=== PATIENT | female | born 1950 | race Caucasian/White ===

== ENCOUNTER 2021-05-01 19:53 | Inpatient (IN) | payer MEDICARE, OTHER ==
[~2021-05-01] VITALS: Ht 165.1 cm; Wt 94.0 kg
--- NOTE | 2021-05-01 19:55 | NUR ---
The patient, JOSE CRUZ ARCHIBALD, 70 y/o, F admitted by PATRICK WINSTON III, DO, was given written information regarding hospital policies, unit procedures and contact persons. Valuables were checked and documented. pt has 280.00 dollars with her, refused to have security to lock up. dr winston notified of pt arrival new orders received see chart. call light in place will cont to monitor pt status and safety. pmrn
[2021-05-01 20:00] VITALS: BP 144/59
[2021-05-01] MEDS ORDERED: ALBUTEROL SULFATE 2.5 MG/3 ML NEBU. NEB PRN (21:15)
[2021-05-01] MEDS ORDERED: guaiFENesin DM 200MG/20MG 10 ML SYRUP PO PRN (21:15)
[2021-05-01] MEDS ORDERED: DEXTROSE 50% 25 GM / 50ML DISP.SYRIN. IV PRN (21:15)
[2021-05-01] MEDS ORDERED: ACETAMINOPHEN 325 MG TABLET. PO PRN (21:15)
[2021-05-01] MEDS: cefTRIAXone IV Push 1 GM VIAL. IVP SCH (22:37)
[2021-05-01 23:00] VITALS: BP 148/59
[2021-05-01] MEDS ORDERED: MAGNESIUM SULFATE 2GM 50 ML IV ONE (23:00)
[2021-05-02] MEDS ORDERED: HEPARIN for IV BOLUS 10,000 UNIT/10 ML VIAL. IV PRN (00:15)
[2021-05-02] MEDS: HEPARIN for IV BOLUS 10,000 UNIT/10 ML VIAL. IV PRN ×2 (00:42→10:48)
[2021-05-02] MEDS: HEPARIN 25,000UTS/250ML PREMIX 250 ML IV PRN ×2 (00:49→23:04)
[2021-05-02] MEDS: ANTI-COAG MONITOR BY PHARMACY. MC PRN ×2 (02:27→08:06)
[2021-05-02 03:00] VITALS: BP 140/62
[2021-05-02 07:00] VITALS: BP 185/79
[2021-05-02] MEDS: ALBUTEROL SULFATE 2.5 MG/3 ML NEBU. NEB SCH ×4 (07:32→20:38)
[2021-05-02 07:52] LABS: BASO # 0.1 x10^3/uL (0.0-0.2); BASO % 1 % (0-3); EOS # 0.1 x10^3/uL (0.0-0.7); EOS % 1 % (0-3); HEMATOCRIT 29.7 % (36.0-47.0); HEMOGLOBIN 9.6 g/dL (12.0-15.5); LYMPH # 1.8 x10^3/uL (1.0-4.8); LYMPH % 22 % (24-48); MEAN CORPUSCULAR HEMOGLOBIN 29 pg (25-35); MEAN CORPUSCULAR HGB CONC 32 g/dL (31-37); MEAN CORPUSCULAR VOLUME 88 fL (79-100); MONO # 0.6 x10^3/uL (0.0-1.1); MONO % 7 % (0-9); NEUT # 5.5 x10^3/uL (1.8-7.7); NEUT % 69 % (31-73); PLATELET COUNT 338 x10^3/uL (140-400); RED BLOOD COUNT 3.38 x10^6/uL (3.50-5.40); RED CELL DISTRIBUTION WIDTH 16.6 % (11.5-14.5)
[2021-05-02] MEDS: INSULIN LISPRO 300 UNITS/3 ML VIAL. SQ SCH ×3 (08:00→17:22)
[2021-05-02 08:11] LABS: CALCIUM 8.4 mg/dL (8.5-10.1); CREATININE 0.6 mg/dL (0.6-1.0); GFR 99.4; POTASSIUM 4.1 mmol/L (3.5-5.1)
--- NOTE | 2021-05-02 08:34 | PDOC1 ---
History and Physical Date of Service: DOS: DATE: 05/02/21 TIME: 08:33 Chief Complaint: Chief Complain: Upper extremity swelling History of Present Illness: HPI: Patient is a 62-year-old female with past medical history of diabetes, hypertension, 55-year of smoking who comes in with bilateral upper extremity swelling and bilateral lower extremity shortness of breath for the last week. Apparently patient was seen in [place] 1 week ago for pneumonialike symptoms and she was treated with antibiotics. She was also told that they did scan her and they told her that she had a mass in her lung. She did not follow-up with this. Patient did have a Covid positivity in December and she was having shortness of breath at that time. She does denies have any history of CHF or kidney dis ease. Patient went to [facility] ER to be evaluated because of her upper extremity swelling. CT of the chest was significant for a right suprahilar mass extending into the mediastinum and supra vena cava occlusion with acute appearing thrombus. For this reason patient was sent over for further evaluation of possible thrombectomy with interventional radiology. Pulmonology and oncology are consulted Past Medical/Surgical History: PMH/PSH: Past medical history of diabetes mellitus and hypertension. Denies any surgical history Allergies: Allergies: Coded Allergies: Anesthetics - Amide Type - Select A (Verified Allergy, Severe, CARDIAC ARREST, 05/01/21) Anesthetics - Elsi Type- Parabens (Verified Allergy, Severe, CARDIAC ARREST, 05/01/21) codeine (Verified Allergy, Intermediate, 05/01/21) makes pt cry niacin (Verified Allergy, Intermediate, 05/01/21) skin turns red and hives Family History: Family History: Reviewed with no relevant findings Social History: Social History: 55 years of 1 pack/day smoking Current Medications: Current Medications Current Medications Acetaminophen (Tylenol) 650 mg PRN Q4HRS PRN PO TEMP OVER 100.4F OR MILD PAIN; Start 05/01/21 at 21:15 Magnesium Sulfate 50 ml @ 25 mls/hr 1X ONCE IV Last administered on 05/01/21at 22:37; Start 05/01/21 at 23:00; Stop 05/02/21 at 00:59; Status DC Ceftriaxone Sodium (Rocephin) 1 gm Q24H IVP Last administered on 05/01/21at 22:37; Start 05/01/21 at 23:00 Lisinopril (Prinivil) 10 mg DAILY PO ; Start 05/02/21 at 09:00 Albuterol Sulfate (Ventolin Neb Soln) 2.5 mg RTQID NEB Last administered on 05/02/21at 07:32; Start 05/02/21 at 08:00 Albuterol Sulfate (Ventolin Neb Soln) 2.5 mg PRN Q4HRS PRN NEB SHORTNESS OF BREATH Last administered on 05/01/21at 22:06; Start 05/01/21 at 21:15 Insulin Human Lispro (HumaLOG) 0-7 UNITS TIDWMEALS SQ ; Start 05/02/21 at 08:00 Dextrose (Dextrose 50%-Water Syringe) 12.5 gm PRN Q15MIN PRN IV SEE COMMENTS; Start 05/01/21 at 21:15 Guaifenesin (Robitussin Dm) 10 ml PRN Q6HRS PRN PO COUGH; Start 05/01/21 at 21:15 Heparin Sodium/ Dextrose 250 ml @ 14 mls/hr CONT PRN IV PER PROTOCOL Last administered on 05/02/21at 00:49; Start 05/02/21 at 00:15 Heparin Sodium (Porcine) (Heparin Sodium) 2,650 unit PRN Q6HRS PRN IV FOR UFH LEVEL LESS THAN 0.2 Last administered on 05/02/21at 00:42; Start 05/02/21 at 00:15 Heparin Sodium (Porcine) (Heparin Sodium) 1,300 unit PRN Q6HRS PRN IV FOR UFH LEVEL 0.2 - 0.29; Start 05/02/21 at 00:15 Info (Anti-Coagulation Monitoring By Pharmacy) 1 each PRN DAILY PRN MC PER PROTOCOL Last administered on 05/02/21at 08:06; Start 05/02/21 at 00:30 ROS: Review of Systems Review of System REVIEW OF SYSTEMS: GENERAL: Denies weakness SKIN: No bruising, hair changes or rashes. EYES: No blurred, double or loss of vision. NOSE AND THROAT: No history of nosebleeds, hoarseness or sore throat. HEART: No history of palpitations, chest pain or shortness of breath on exertion. LUNGS: Denies cough, hemoptysis, wheezing or shortness of breath. GASTROINTESTINAL: Denies changes in appetite, nausea, vomiting, diarrhea or constipation. GENITOURINARY: No history of frequency, urgency, hesitancy or nocturia. NEUROLOGIC: Denies history of numbness, tingling, or tremor. PSYCHIATRIC: No history of panic, anxiety or depression. ENDOCRINE: No history of heat or cold intolerance, polyuria or polydipsia. EXTREMITIES: Upper extremity swelling Physical Exam: Vital Signs: Vital Signs Date Time Temp Pulse Resp B/P (MAP) Pulse Ox O2 Delivery O2 Flow Rate FiO2 05/02/21 07:32 93 Room Air 05/02/21 03:00 98.4 85 17 140/62 (88) 98.4 05/01/21 22:08 2.0 Physcial Exam: General: Well developed, well nourished, no acute distress, well appearing HEENT: Pupils equally round and reactive to light, EOMI, no discharge, normal conjunctiva Neck: Supple, no nuchal rigidity, no JVD, trachea midline, no tenderness Cardiac: RRR, no murmurs, no gallops, no rubs Chest/Lungs: CTAB, no wheeze, no rhonchi, no crackles. Diminished lung sounds in the right upper region. Abdomen: soft, non-distended, no guarding, no peritoneal signs, non-tender Back: No tenderness Extremities: +1 upper extremity edema in the right greater than left extremities. No erythema or redness of the face. Neuro: Alert and oriented x 4, no focal deficits, normal speech Labs: Labs: Laboratory Tests Test 05/01/21 23:10 05/02/21 06:15 05/02/21 07:38 Heparin Anti-Xa Act, Unfractionated 0.15 IU/mL (0.30-0.70) 0.19 IU/mL (0.30-0.70) White Blood Count 8.0 x10^3/uL (4.0-11.0) Red Blood Count 3.38 x10^6/uL (3.50-5.40) Hemoglobin 9.6 g/dL (12.0-15.5) Hematocrit 29.7 % (36.0-47.0) Mean Corpuscular Volume 88 fL (79-100) Mean Corpuscular Hemoglobin 29 pg (25-35) Mean Corpuscular Hemoglobin Concent 32 g/dL (31-37) Red Cell Distribution Width 16.6 % (11.5-14.5) Platelet Count 338 x10^3/uL (140-400) Neutrophils (%) (Auto) 69 % (31-73) Lymphocytes (%) (Auto) 22 % (24-48) Monocytes (%) (Auto) 7 % (0-9) Eosinophils (%) (Auto) 1 % (0-3) Basophils (%) (Auto) 1 % (0-3) Neutrophils # (Auto) 5.5 x10^3/uL (1.8-7.7) Lymphocytes # (Auto) 1.8 x10^3/uL (1.0-4.8) Monocytes # (Auto) 0.6 x10^3/uL (0.0-1.1) Eosinophils # (Auto) 0.1 x10^3/uL (0.0-0.7) Basophils # (Auto) 0.1 x10^3/uL (0.0-0.2) Sodium Level 138 mmol/L (136-145) Potassium Level 4.1 mmol/L (3.5-5.1) Chloride Level 100 mmol/L (98-107) Carbon Dioxide Level 29 mmol/L (21-32) Anion Gap 9 (6-14) Blood Urea Nitrogen 11 mg/dL (7-20) Creatinine 0.6 mg/dL (0.6-1.0) Estimated GFR (Cockcroft-Gault) 99.4 Glucose Level 92 mg/dL (70-99) Calcium Level 8.4 mg/dL (8.5-10.1) Glucose (Fingerstick) 96 mg/dL (70-99) Laboratory Tests Test 05/01/21 23:10 05/02/21 06:15 05/02/21 07:38 Heparin Anti-Xa Act, Unfractionated 0.15 IU/mL (0.30-0.70) 0.19 IU/mL (0.30-0.70) White Blood Count 8.0 x10^3/uL (4.0-11.0) Red Blood Count 3.38 x10^6/uL (3.50-5.40) Hemoglobin 9.6 g/dL (12.0-15.5) Hematocrit 29.7 % (36.0-47.0) Mean Corpuscular Volume 88 fL (79-100) Mean Corpuscular Hemoglobin 29 pg (25-35) Mean Corpuscular Hemoglobin Concent 32 g/dL (31-37) Red Cell Distribution Width 16.6 % (11.5-14.5) Platelet Count 338 x10^3/uL (140-400) Neutrophils (%) (Auto) 69 % (31-73) Lymphocytes (%) (Auto) 22 % (24-48) Monocytes (%) (Auto) 7 % (0-9) Eosinophils (%) (Auto) 1 % (0-3) Basophils (%) (Auto) 1 % (0-3) Neutrophils # (Auto) 5.5 x10^3/uL (1.8-7.7) Lymphocytes # (Auto) 1.8 x10^3/uL (1.0-4.8) Monocytes # (Auto) 0.6 x10^3/uL (0.0-1.1) Eosinophils # (Auto) 0.1 x10^3/uL (0.0-0.7) Basophils # (Auto) 0.1 x10^3/uL (0.0-0.2) Sodium Level 138 mmol/L (136-145) Potassium Level 4.1 mmol/L (3.5-5.1) Chloride Level 100 mmol/L (98-107) Carbon Dioxide Level 29 mmol/L (21-32) Anion Gap 9 (6-14) Blood Urea Nitrogen 11 mg/dL (7-20) Creatinine 0.6 mg/dL (0.6-1.0) Estimated GFR (Cockcroft-Gault) 99.4 Glucose Level 92 mg/dL (70-99) Calcium Level 8.4 mg/dL (8.5-10.1) Glucose (Fingerstick) 96 mg/dL (70-99) Images: Images CT of the chest at [facility] showing supra vena cava occlusion due to large right suprahilar/mediastinal mass. There is an acute appearing thrombus in the right brachiocephalic vein and subclavian veins. There are extensive collateral vessels in the right chest wall and upper abdomen. New subcutaneous edema of the right chest wall. There is unchanged right suprahilar mass extending into the mediastinum. New small right pleural effusion. Unchanged bilateral axillary lymphadenopathy. There is also lymphadenopathy in the abdomen pelvis. Large lytic lesion left iliac wing with soft tissue component measuring approximately 5 cm. 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 antihypertensive regimen to maintain systolic blood pressure goal in the hospital between 140 180 Heparin drip for DVT prophylaxis ADA diet CODE STATUS full Discussed with RN and SW Disposition pending IR thrombolysis versus thrombectomy DPOA: Sister In addition to my E/M visit, advance care planning done with A total time of 20 minutes was spent from 10:00 to 1020 face to face in discussion regarding the patient's goals of care, CODE STATUS. Smoking cessation: Total time spent was 12 minutes in face to face counseling. Patient has agreed to consider nicotine patches/gum or to start on Varnicline when discharged A total of 55 minutes of critical care time was spent in reviewing chart, labs, and images. Discussed with RN and SW. Justifications for Admission Other Justification RAFAELA LEUNG MD May 02, 2021 08:34
--- NOTE | 2021-05-02 08:47 | EKG ---
[facility] [address] [place] [address] Test Date: 2021-05-02 Test Time: 08:38:09 Pat Name: JOSE CRUZ ARCHIBALD Department: Room: [facility] Gender: F Merchandising Lead: FAHAD : 1950 Requested By: PATRICK WHITAKER Order Number: [id number] Reading MD: Lawrence Gill Measurements Intervals Yale Rate: 85 P: 56 CA: 122 QRS: 52 QRSD: 70 T: 56 QT: 358 QTc: 426 Interpretive Statements SINUS RHYTHM ATRIAL PREMATURE COMPLEX(ES) LOW VOLTAGE ABNORMAL ECG RI6.02 No previous ECG available for comparison Electronically Signed On 05-05-2021 9:39:42 COB SAWYER by Lawrence Gill
--- NOTE | 2021-05-02 10:56 | PDOC4 ---
IR NOTE: VIR Consult 70 yo female who experienced abrupt bilateral arm swelling last , followed shortly by bilateral breast swelling. No loss of sensation or motor function. No HANNON or vision changes. Evaluated by [employer] TE[employer]ER and CT of the CAP was done demonstrating large right suprahilar mass with SVC and right bronchial compression, post obstructive atalectasis, and bilateral subclavian vein thrombosis. No prior history of VTE. Patient does complain of worsening dry cough. No hemoptysis. PE: A & O x 3, no acute distress, somewhat tearful. HEENT is nc/at. EOM intact. Mucous membranes moist. Mild facial swelling without discoloration. Neck is supple. Mild bilateral UE edema. No LE edema. CT CAP with findings as above. Also 5cm lytic pelvic lesion suspicious for metastasis. A/P: 1. New lung cancer, stage IV with lytic pelvic metastatsis. Will need hematology, rad onc consultations. Probable biopsy next week unless she elects for palliative care. 2. DVT. Heparin gtt over the weekend. 3. SVC syndrome - plan for SVC stents upon resolution of DVT. Perhaps concurrent radiation at the direction of Rad Onc. Repeat CT Venogram of the chest next week. Will consider thrombolysis prior to SVC stents if DVT fails to respond to heparin gtt. DONLAD VILLATORO MD May 02, 2021 10:56
[2021-05-02 11:00] VITALS: BP 180/64
[2021-05-02] MEDS: LISINOPRIL 10 MG TABLET PO SCH (11:52)
[2021-05-02] MEDS ORDERED: methylPREDNISolone SOD SUCC PF 125 MG/2 ML VIAL. IV ONE (12:00)
--- NOTE | 2021-05-02 12:24 | PDOC2 ---
CONSULT Date of Consult Date of Consult DATE: 05/02/21 TIME: 12:18 Reason for Consult Reason for Consult: Lung mass with SVC syndrome Referring Physician Referring Physician: Dr. Broussard Identification/Chief Complaint Chief Complaint Bilateral upper extremity and chest edema Source Source: Patient History of Present Illness Reason for Visit: Tasia is a 70-year-old female with history of hypertension, type 2 diabetes and tobacco use ([id number]) who has been admitted to [facility] after presenting to [facility] with bilateral upper extremity pain and swelling. Tasia reports worsening edema in the bilateral upper extremities, face and chest wall over the last few weeks. She went into the emergency room at [facility] in [facility] for further evaluation. She received CT scans of the chest, abdomen and pelvis at [facility]. CT showed a right suprahilar/perihilar mass with associated compression of the superior vena cava and extensive collateralization. In addition, left iliac bone lytic lesion measuring up to 5 cm was noted. She has been transferred to [facility] for further evaluation and management. IR biopsy has been planned for Wednesday. She does report a [id number] smoking history. She continues to smoke 1 pack daily. She follows with ELIANE Meadows in [facility] for primary care. She denies headache, blurred vision, nausea, vomiting, loss of consciousness She reports bilateral upper extremity edema She does report left hip pain. She attributes to a recent fall Current Medications Current Medications Current Medications Acetaminophen (Tylenol) 650 mg PRN Q4HRS PRN PO TEMP OVER 100.4F OR MILD PAIN; Start 05/01/21 at 21:15 Magnesium Sulfate 50 ml @ 25 mls/hr 1X ONCE IV Last administered on 05/01/21at 22:37; Start 05/01/21 at 23:00; Stop 05/02/21 at 00:59; Status DC Ceftriaxone Sodium (Rocephin) 1 gm Q24H IVP Last administered on 05/01/21at 22:37; Start 05/01/21 at 23:00 Lisinopril (Prinivil) 10 mg DAILY PO Last administered on 05/02/21at 11:52; Start 05/02/21 at 09:00 Albuterol Sulfate (Ventolin Neb Soln) 2.5 mg RTQID NEB Last administered on 05/02/21at 11:25; Start 05/02/21 at 08:00 Albuterol Sulfate (Ventolin Neb Soln) 2.5 mg PRN Q4HRS PRN NEB SHORTNESS OF BREATH Last administered on 05/01/21at 22:06; Start 05/01/21 at 21:15 Insulin Human Lispro (HumaLOG) 0-7 UNITS TIDWMEALS SQ ; Start 05/02/21 at 08:00 Dextrose (Dextrose 50%-Water Syringe) 12.5 gm PRN Q15MIN PRN IV SEE COMMENTS; Start 05/01/21 at 21:15 Guaifenesin (Robitussin Dm) 10 ml PRN Q6HRS PRN PO COUGH; Start 05/01/21 at 21:15 Heparin Sodium/ Dextrose 250 ml @ 14 mls/hr CONT PRN IV PER PROTOCOL Last administered on 05/02/21at 00:49; Start 05/02/21 at 00:15 Heparin Sodium (Porcine) (Heparin Sodium) 2,650 unit PRN Q6HRS PRN IV FOR UFH LEVEL LESS THAN 0.2 Last administered on 05/02/21at 10:48; Start 05/02/21 at 00:15 Heparin Sodium (Porcine) (Heparin Sodium) 1,300 unit PRN Q6HRS PRN IV FOR UFH LEVEL 0.2 - 0.29; Start 05/02/21 at 00:15 Info (Anti-Coagulation Monitoring By Pharmacy) 1 each PRN DAILY PRN MC PER PROTOCOL Last administered on 05/02/21at 08:06; Start 05/02/21 at 00:30 Methylprednisolone Sodium Succinate (SOLU-Medrol 125MG VIAL) 125 mg DAILY IV ; Start 05/03/21 at 09:00 Methylprednisolone Sodium Succinate (SOLU-Medrol 125MG VIAL) 125 mg 1X ONCE IV ; Start 05/02/21 at 12:00; Stop 05/02/21 at 12:03; Status DC Allergies Allergies: Coded Allergies: Anesthetics - Amide Type - Select A (Verified Allergy, Severe, CARDIAC ARREST, 05/01/21) Anesthetics - Elsi Type- Parabens (Verified Allergy, Severe, CARDIAC ARREST, 05/01/21) codeine (Verified Allergy, Intermediate, 05/01/21) makes pt cry niacin (Verified Allergy, Intermediate, 05/01/21) skin turns red and hives ROS Review of System Negative unless stated otherwise in interval history Physical Exam Physical Exam General: Awake, alert, no distress Head: Conjunctival congestion noted. Facial edema noted Neck: Neck edema noted Chest: Chest wall edema noted with prominent veins Cardiovascular: Regular rhythm, normal rate, no murmurs Respiratory: Bilateral air entry noted, lungs clear to auscultation bilaterally. No accessory muscle use Abdominal: Abdomen is soft, nontender, nondistended. Bowel sounds were normal. No hepatomegaly or splenomegaly Musculoskeletal: No deformity noted Extremities: Bilateral upper extremity edema noted Skin: No rash or lesions Neurologic: Alert and oriented x3, no grossly evident neurologic deficits noted. Full neurological exam was not performed Psychiatric: Appropriate mood and affect Vitals VITALS Vital Signs Date Time Temp Pulse Resp B/P (MAP) Pulse Ox O2 Delivery O2 Flow Rate FiO2 05/02/21 11:52 74 185/79 05/02/21 11:25 96 Room Air 05/02/21 07:00 97.7 20 97.7 05/01/21 22:08 2.0 Labs Labs Laboratory Tests Test 05/01/21 23:10 05/02/21 06:15 05/02/21 07:38 05/02/21 11:35 Heparin Anti-Xa Act, Unfractionated 0.15 IU/mL (0.30-0.70) 0.19 IU/mL (0.30-0.70) White Blood Count 8.0 x10^3/uL (4.0-11.0) Red Blood Count 3.38 x10^6/uL (3.50-5.40) Hemoglobin 9.6 g/dL (12.0-15.5) Hematocrit 29.7 % (36.0-47.0) Mean Corpuscular Volume 88 fL (79-100) Mean Corpuscular Hemoglobin 29 pg (25-35) Mean Corpuscular Hemoglobin Concent 32 g/dL (31-37) Red Cell Distribution Width 16.6 % (11.5-14.5) Platelet Count 338 x10^3/uL (140-400) Neutrophils (%) (Auto) 69 % (31-73) Lymphocytes (%) (Auto) 22 % (24-48) Monocytes (%) (Auto) 7 % (0-9) Eosinophils (%) (Auto) 1 % (0-3) Basophils (%) (Auto) 1 % (0-3) Neutrophils # (Auto) 5.5 x10^3/uL (1.8-7.7) Lymphocytes # (Auto) 1.8 x10^3/uL (1.0-4.8) Monocytes # (Auto) 0.6 x10^3/uL (0.0-1.1) Eosinophils # (Auto) 0.1 x10^3/uL (0.0-0.7) Basophils # (Auto) 0.1 x10^3/uL (0.0-0.2) Sodium Level 138 mmol/L (136-145) Potassium Level 4.1 mmol/L (3.5-5.1) Chloride Level 100 mmol/L (98-107) Carbon Dioxide Level 29 mmol/L (21-32) Anion Gap 9 (6-14) Blood Urea Nitrogen 11 mg/dL (7-20) Creatinine 0.6 mg/dL (0.6-1.0) Estimated GFR (Cockcroft-Gault) 99.4 Glucose Level 92 mg/dL (70-99) Calcium Level 8.4 mg/dL (8.5-10.1) Glucose (Fingerstick) 96 mg/dL (70-99) 93 mg/dL (70-99) Laboratory Tests Test 05/01/21 23:10 05/02/21 06:15 05/02/21 07:38 05/02/21 11:35 Heparin Anti-Xa Act, Unfractionated 0.15 IU/mL (0.30-0.70) 0.19 IU/mL (0.30-0.70) White Blood Count 8.0 x10^3/uL (4.0-11.0) Red Blood Count 3.38 x10^6/uL (3.50-5.40) Hemoglobin 9.6 g/dL (12.0-15.5) Hematocrit 29.7 % (36.0-47.0) Mean Corpuscular Volume 88 fL (79-100) Mean Corpuscular Hemoglobin 29 pg (25-35) Mean Corpuscular Hemoglobin Concent 32 g/dL (31-37) Red Cell Distribution Width 16.6 % (11.5-14.5) Platelet Count 338 x10^3/uL (140-400) Neutrophils (%) (Auto) 69 % (31-73) Lymphocytes (%) (Auto) 22 % (24-48) Monocytes (%) (Auto) 7 % (0-9) Eosinophils (%) (Auto) 1 % (0-3) Basophils (%) (Auto) 1 % (0-3) Neutrophils # (Auto) 5.5 x10^3/uL (1.8-7.7) Lymphocytes # (Auto) 1.8 x10^3/uL (1.0-4.8) Monocytes # (Auto) 0.6 x10^3/uL (0.0-1.1) Eosinophils # (Auto) 0.1 x10^3/uL (0.0-0.7) Basophils # (Auto) 0.1 x10^3/uL (0.0-0.2) Sodium Level 138 mmol/L (136-145) Potassium Level 4.1 mmol/L (3.5-5.1) Chloride Level 100 mmol/L (98-107) Carbon Dioxide Level 29 mmol/L (21-32) Anion Gap 9 (6-14) Blood Urea Nitrogen 11 mg/dL (7-20) Creatinine 0.6 mg/dL (0.6-1.0) Estimated GFR (Cockcroft-Gault) 99.4 Glucose Level 92 mg/dL (70-99) Calcium Level 8.4 mg/dL (8.5-10.1) Glucose (Fingerstick) 96 mg/dL (70-99) 93 mg/dL (70-99) Assessment/Plan Assessment/Plan Assessment: Suspected metastatic lung cancer Superior vena cava obstruction syndrome Normocytic anemia Tobacco abuse Hypertension Type 2 diabetes Recommendations: -I reviewed the results of CT CAP obtained at [place]. Suspect advanced lung cancer -Recommend CT-guided biopsy in interventional radiology -Recommend port placement along with CT-guided biopsy -Recommend radiation oncology consultation -Encouraged smoking cessation counseling -Will follow inpatient and arrange outpatient follow-up. Patient was given contact information for my office -Agree with therapeutic anticoagulation. Reasonable to continue with heparin infusion until completion of IR biopsy. Can start DOAC subsequently at discharge Tutu Olmstead MD Medical Oncology/Hematology Ph: [phone] LAMBERTO OLMSTEAD MD 5, 2021 12:24
--- NOTE | 2021-05-02 13:23 | CONS ---
DATE OF CONSULTATION: 05/02/2021 ATTENDING PHYSICIAN: Ant Broussard MD. REASON FOR CONSULTATION: The patient is seen in pulmonary consultation at the request of Dr. Broussard for abnormal CT chest revealing a right upper lobe mediastinal mass. HISTORY OF PRESENT ILLNESS: The patient is a 70-year-old that presented through the Emergency Room at [facility] with basically increasing upper extremity edema, facial swelling. She states that she has been seen in the emergency room for facial swelling in the past and was told that she had some allergies. The patient was staying with family in [place], had multiple emergency room for same problems and she has been having some difficulty breathing in the past. For the past month or so, she has been seen in the urgent care center and treated for pneumonia. She was positive for COVID back in December. She currently does not wear oxygen at home. She continues to smoke. She denies fever, chills or night sweats. She came in as a result of upper extremity edema, facial swelling. She underwent a CT chest, abdomen and pelvis. CT chest was personally reviewed. There is occlusion of the superior vena cava with acute appearing thrombus in the right brachiocephalic vein and part of the right subclavian vein. There were multiple collateral vessels in the right chest wall and abdominal wall. There is a right suprahilar mass extending into the mediastinum. The mass measured 7-8 cm in greatest dimension. There is increase in the right central bronchovascular structure, occlusion of the right upper lobe bronchus and narrowing of the bronchus intermedius. There is consolidation of lung distal to the mass. Currently, the patient is off of oxygen, she denies any hemoptysis. PAST MEDICAL HISTORY: Otherwise remarkable for tobacco dependence, COPD, diabetes, hyperlipidemia. PAST SURGICAL HISTORY: No recent major surgeries. ALLERGIES: CODEINE, NIACIN, ANESTHETICS. REVIEW OF SYSTEMS: CONSTITUTIONAL: No fever or chills. EYES: No change in visual acuity. HENT: As indicated above. PULMONARY: As indicated above. CARDIOVASCULAR: No chest pain or pressure. GASTROINTESTINAL: No nausea, vomiting or diarrhea. GENITOURINARY: No dysuria or frequency. MUSCULOSKELETAL: No localized muscle aches or joint pain. SKIN: No new skin rashes. NEUROLOGIC: No headaches, diplopia or blurred vision. CURRENT MEDICATIONS: List was reviewed. She is currently on IV heparin. In addition, she is receiving magnesium, ceftriaxone, guaifenesin. PHYSICAL EXAMINATION: GENERAL: The patient appeared to be of stated age. She was in no significant respiratory distress, currently on 2 liters of oxygen supplementation. HEENT: Eyes: The sclerae were nonicteric. Face: She has some facial swelling, some erythema over the cheeks. NECK: JVD was not elevated. CHEST: Full expansion. LUNGS: Adequate flow with diminished breath sounds on right side. CARDIOVASCULAR: Regular rate and rhythm with S1, S2, no S3. ABDOMEN: Soft. EXTREMITIES: No clubbing, cyanosis or edema. NEUROLOGIC: The patient was awake, alert, following commands. A detailed neuro exam was not performed. LABORATORY DATA: Reviewed. White count was 8.0. Electrolytes were noted. CT chest as indicated above. IMPRESSION: 1. Acute hypoxemic respiratory failure, multifactorial. 2. Abnormal CT chest revealing a large right upper lobe/mediastinal mass. 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 5. Tobacco dependence. 6. Chronic obstructive pulmonary disease. DISCUSSION: 1. The above was discussed with interventional radiologist, Dr. Phillips; for now, we will continue IV heparin; possible insertion of SVC stent in next week. 2. Possible biopsy of the lytic pelvic bone. 3. Continue current support with oxygen supplementation, antibiotics and steroids. I do appreciate the privilege in sharing in the patient's care. BAKARI MORENO: Yamila TID: [id number]
--- NOTE | 2021-05-02 13:38 | NUR ---
SS following for discharge planning. SS reviewed pt chart and discussed with pt RN. Pt is from home and is currently on room air. Pt has mass in lung. Pulmonology, Oncology, and Vascular consulted. Pt IV Rocephin and IV Solu-Medrol. Heparin drip. SS will continue to follow for discharge planning.
[2021-05-02 15:00] VITALS: BP 172/62
--- NOTE | 2021-05-02 15:34 | PDOC2 ---
CONSULT Date of Service Date of Service DATE: 05/02/21 TIME: 14:57 Reason for Consult Reason for Consult: Vena cava syndrome Referring Physician Referring Physician: Dr. Jacobs Identification/Chief Complaint Chief Complaint Bilateral upper extremity swelling and breast swelling Source Source: Chart review, Patient History of Present Illness Reason for Visit: This is a 70-year-old female with a history of hypertension, diabetes and long- term tobacco use of greater than 50 years who experienced abrupt bilateral arm and breast swelling last . Patient states she was in [place] and went to the emergency room where she had a CT scan. She did not receive the results of the CT scan until she had returned home. She reports the swelling persisted thus she presented to the emergency room at [facility] for further evaluation. CT scan of the chest revealed right suprahilar/perihilar mass with associated compression of the superior vena cava and extensive collateralization. In addition the scan revealed left iliac bone lytic lesion measuring up to 5 cm. She has bilateral supclavian vein thrombosis. She was transferred to [facility] for further evaluation and management. Heparin drip was initiated. Patient reports she has had improvement in her bilateral upper extremity and bilateral breast swelling. Patient denies ever having had any loss of function or sensation in her upper extremities. Patient reports that she was unaware of any mass or lesion as noted on the CT scan. Patient denies any history of TIA or strokelike symptoms. She denies any lower extremity claudication. Patient denies any nausea or vomiting. Patient denies any fever or chills. Patient reports she had Covid at the end of December. Patient has been seen by hematology/oncology and interventional radiology. There is suspected advanced lung cancer. Past Medical History Cardiovascular: HTN, Other (tobaccoism) Endocrine: Diabetes Past Surgical History Past Surgical History none Family History Family History Noncontributory to current problem Social History # pack years (50+) ALCOHOL: none Current Medications Current Medications Home Medications: Lisinopril and Metformin Current Medications Acetaminophen (Tylenol) 650 mg PRN Q4HRS PRN PO TEMP OVER 100.4F OR MILD PAIN; Start 05/01/21 at 21:15 Magnesium Sulfate 50 ml @ 25 mls/hr 1X ONCE IV Last administered on 05/01/21at 22:37; Start 05/01/21 at 23:00; Stop 05/02/21 at 00:59; Status DC Ceftriaxone Sodium (Rocephin) 1 gm Q24H IVP Last administered on 05/01/21at 22:37; Start 05/01/21 at 23:00 Lisinopril (Prinivil) 10 mg DAILY PO Last administered on 05/02/21at 11:52; Start 05/02/21 at 09:00 Albuterol Sulfate (Ventolin Neb Soln) 2.5 mg RTQID NEB Last administered on 05/02/21at 11:25; Start 05/02/21 at 08:00 Albuterol Sulfate (Ventolin Neb Soln) 2.5 mg PRN Q4HRS PRN NEB SHORTNESS OF BREATH Last administered on 05/01/21at 22:06; Start 05/01/21 at 21:15 Insulin Human Lispro (HumaLOG) 0-7 UNITS TIDWMEALS SQ ; Start 05/02/21 at 08:00 Dextrose (Dextrose 50%-Water Syringe) 12.5 gm PRN Q15MIN PRN IV SEE COMMENTS; Start 05/01/21 at 21:15 Guaifenesin (Robitussin Dm) 10 ml PRN Q6HRS PRN PO COUGH; Start 05/01/21 at 21:15 Heparin Sodium/ Dextrose 250 ml @ 14 mls/hr CONT PRN IV PER PROTOCOL Last admi nistered on 05/02/21at 00:49; Start 05/02/21 at 00:15 Heparin Sodium (Porcine) (Heparin Sodium) 2,650 unit PRN Q6HRS PRN IV FOR UFH LEVEL LESS THAN 0.2 Last administered on 05/02/21at 10:48; Start 05/02/21 at 00:15 Heparin Sodium (Porcine) (Heparin Sodium) 1,300 unit PRN Q6HRS PRN IV FOR UFH LEVEL 0.2 - 0.29; Start 05/02/21 at 00:15 Info (Anti-Coagulation Monitoring By Pharmacy) 1 each PRN DAILY PRN MC PER PROTOCOL Last administered on 05/02/21at 08:06; Start 05/02/21 at 00:30 Methylprednisolone Sodium Succinate (SOLU-Medrol 125MG VIAL) 125 mg DAILY IV ; Start 05/03/21 at 09:00 Methylprednisolone Sodium Succinate (SOLU-Medrol 125MG VIAL) 125 mg 1X ONCE IV Last administered on 05/02/21at 12:26; Start 05/02/21 at 12:00; Stop 05/02/21 at 12:03; Status DC Allergies Allergies: Coded Allergies: Anesthetics - Amide Type - Select A (Verified Allergy, Severe, CARDIAC ARREST, 05/01/21) Anesthetics - Elsi Type- Parabens (Verified Allergy, Severe, CARDIAC ARREST, 05/01/21) codeine (Verified Allergy, Intermediate, 05/01/21) makes pt cry niacin (Verified Allergy, Intermediate, 05/01/21) skin turns red and hives ROS Review of System Constitutional: Denies fever or chills Eyes: Denies any visual disturbances HENT: Denies nasal congestion or sore throat Respiratory: New dry cough Cardiovascular: Denies any palpitations or chest pain GI: Denies abdominal pain, nausea, vomiting, bloody stools or diarrhea : Denies dysuria or hematuria Musculoskeletal: As per HPI Integument: As per HPI Neurologic: No gross deficits Endocrine: Diabetes Physical Exam Physical Exam General: Alert and oriented X3 HEENT: Atraumatic, Pupils equal, round. Mucous membranes moist. Cardiac: Heart rate regular. Normal carotid pulses. No breast swelling. Lungs: CTA, non-labored respirations. Abdomen: Obese, soft, nontender, nondistended, no palpable masses. Extremities: Hands and feet warm. 2+ palpable radial pulses. No upper or lower extremity swelling. Musculoskeletal: Gait steady. Moving all extremities. Strength 5/5. Skin: Warm, dry and intact. Neurological: Motor and sensation intact. Psychiatry: No depression or anxiety Vitals VITALS Vital Signs Date Time Temp Pulse Resp B/P (MAP) Pulse Ox O2 Delivery O2 Flow Rate FiO2 05/02/21 11:52 74 185/79 05/02/21 11:25 96 Room Air 05/02/21 11:00 97.8 20 97.8 05/01/21 22:08 2.0 Labs Labs Laboratory Tests Test 05/01/21 23:10 05/02/21 06:15 05/02/21 07:38 05/02/21 11:35 Heparin Anti-Xa Act, Unfractionated 0.15 IU/mL (0.30-0.70) 0.19 IU/mL (0.30-0.70) White Blood Count 8.0 x10^3/uL (4.0-11.0) Red Blood Count 3.38 x10^6/uL (3.50-5.40) Hemoglobin 9.6 g/dL (12.0-15.5) Hematocrit 29.7 % (36.0-47.0) Mean Corpuscular Volume 88 fL (79-100) Mean Corpuscular Hemoglobin 29 pg (25-35) Mean Corpuscular Hemoglobin Concent 32 g/dL (31-37) Red Cell Distribution Width 16.6 % (11.5-14.5) Platelet Count 338 x10^3/uL (140-400) Neutrophils (%) (Auto) 69 % (31-73) Lymphocytes (%) (Auto) 22 % (24-48) Monocytes (%) (Auto) 7 % (0-9) Eosinophils (%) (Auto) 1 % (0-3) Basophils (%) (Auto) 1 % (0-3) Neutrophils # (Auto) 5.5 x10^3/uL (1.8-7.7) Lymphocytes # (Auto) 1.8 x10^3/uL (1.0-4.8) Monocytes # (Auto) 0.6 x10^3/uL (0.0-1.1) Eosinophils # (Auto) 0.1 x10^3/uL (0.0-0.7) Basophils # (Auto) 0.1 x10^3/uL (0.0-0.2) Sodium Level 138 mmol/L (136-145) Potassium Level 4.1 mmol/L (3.5-5.1) Chloride Level 100 mmol/L (98-107) Carbon Dioxide Level 29 mmol/L (21-32) Anion Gap 9 (6-14) Blood Urea Nitrogen 11 mg/dL (7-20) Creatinine 0.6 mg/dL (0.6-1.0) Estimated GFR (Cockcroft-Gault) 99.4 Glucose Level 92 mg/dL (70-99) Calcium Level 8.4 mg/dL (8.5-10.1) Glucose (Fingerstick) 96 mg/dL (70-99) 93 mg/dL (70-99) Laboratory Tests Test 05/01/21 23:10 05/02/21 06:15 05/02/21 07:38 05/02/21 11:35 Heparin Anti-Xa Act, Unfractionated 0.15 IU/mL (0.30-0.70) 0.19 IU/mL (0.30-0.70) White Blood Count 8.0 x10^3/uL (4.0-11.0) Red Blood Count 3.38 x10^6/uL (3.50-5.40) Hemoglobin 9.6 g/dL (12.0-15.5) Hematocrit 29.7 % (36.0-47.0) Mean Corpuscular Volume 88 fL (79-100) Mean Corpuscular Hemoglobin 29 pg (25-35) Mean Corpuscular Hemoglobin Concent 32 g/dL (31-37) Red Cell Distribution Width 16.6 % (11.5-14.5) Platelet Count 338 x10^3/uL (140-400) Neutrophils (%) (Auto) 69 % (31-73) Lymphocytes (%) (Auto) 22 % (24-48) Monocytes (%) (Auto) 7 % (0-9) Eosinophils (%) (Auto) 1 % (0-3) Basophils (%) (Auto) 1 % (0-3) Neutrophils # (Auto) 5.5 x10^3/uL (1.8-7.7) Lymphocytes # (Auto) 1.8 x10^3/uL (1.0-4.8) Monocytes # (Auto) 0.6 x10^3/uL (0.0-1.1) Eosinophils # (Auto) 0.1 x10^3/uL (0.0-0.7) Basophils # (Auto) 0.1 x10^3/uL (0.0-0.2) Sodium Level 138 mmol/L (136-145) Potassium Level 4.1 mmol/L (3.5-5.1) Chloride Level 100 mmol/L (98-107) Carbon Dioxide Level 29 mmol/L (21-32) Anion Gap 9 (6-14) Blood Urea Nitrogen 11 mg/dL (7-20) Creatinine 0.6 mg/dL (0.6-1.0) Estimated GFR (Cockcroft-Gault) 99.4 Glucose Level 92 mg/dL (70-99) Calcium Level 8.4 mg/dL (8.5-10.1) Glucose (Fingerstick) 96 mg/dL (70-99) 93 mg/dL (70-99) Assessment/Plan Assessment/Plan 70-year-old female with new diagnosis of suprahilar/perihilar mass and superior vena cava syndrome with lytic pelvic metastasis. Bilateral upper extremity deep vein thrombosis. Heparin drip was initiated.. Patient has had some resolution of her upper extremities swelling with the initiation of the heparin drip. Agree with therapeutic anticoagulation and encouraged smoking cessation. Oncology has recommended CT-guided biopsy by interventional radiology as well as possible port placement. I spoke directly with Dr. Phillips who recommended repeat CT venogram of the chest early next week with possible SVC stent placement upon resolution of DVT. He could perform possible thrombolysis if subclavian DVT persist. Agree with the current plan set forth by the hematology and interventional radiology. I discussed history and physical examination as well as the reports of imaging with Dr. Ernst and he agrees with the above. One of the vascular surgeons will see the patient this weekend and make additional recommendations as needed. TRE HYMAN APRN May 02, 2021 15:34 DORINDA BLOOM MD May 03, 2021 08:52
[2021-05-02] MEDS ORDERED: ONDANSETRON PF 4 MG/2 ML VIAL. IVP PRN (16:15)
[2021-05-02] MEDS ORDERED: DEXTROSE 50% 25 GM / 50ML DISP.SYRIN. IV PRN (16:15)
[2021-05-02] MEDS ORDERED: SENNOSIDES 8.6 MG TABLET PO PRN (16:15)
[2021-05-02] MEDS ORDERED: PROCHLORPERAZINE 10 MG/2 ML VIAL. IV PRN (16:15)
[2021-05-02] MEDS ORDERED: MORPHINE SULFATE 2 MG/ML INJ. IV PRN (16:15)
[2021-05-02] MEDS ORDERED: ACETAMINOPHEN 325 MG TABLET. PO PRN (16:15)
[2021-05-02] MEDS ORDERED: LORazepam 0.5 MG TABLET PO PRN (16:15)
[2021-05-02] MEDS ORDERED: MORPHINE SULFATE 2 MG/ML INJ. IVP PRN (16:15)
[2021-05-02] MEDS ORDERED: DOCUSATE SODIUM 100 MG CAPSULE. PO PRN (16:15)
[2021-05-02] MEDS ORDERED: ZOLPIDEM 5 MG TABLET. PO PRN (16:15)
[2021-05-02 19:15] VITALS: BP 140/59
[2021-05-02] MEDS ORDERED: LOSARTAN POTASSIUM 50 MG TABLET. PO SCH (21:00)
[2021-05-02] MEDS: cefTRIAXone IV Push 1 GM VIAL. IVP SCH (21:22)
[2021-05-02 23:18] VITALS: BP 133/59
[2021-05-03 03:00] VITALS: BP 135/67
[2021-05-03 03:26] LABS: BASO # 0.1 x10^3/uL (0.0-0.2); BASO % 1 % (0-3); EOS % 0 % (0-3); HEMATOCRIT 28.5 % (36.0-47.0); HEMOGLOBIN 9.3 g/dL (12.0-15.5); LYMPH # 1.1 x10^3/uL (1.0-4.8); LYMPH % 15 % (24-48); MEAN CORPUSCULAR HEMOGLOBIN 29 pg (25-35); MEAN CORPUSCULAR HGB CONC 33 g/dL (31-37); MEAN CORPUSCULAR VOLUME 88 fL (79-100); MONO # 0.3 x10^3/uL (0.0-1.1); MONO % 4 % (0-9); NEUT # 6.2 x10^3/uL (1.8-7.7); NEUT % 81 % (31-73); PLATELET COUNT 326 x10^3/uL (140-400); RED BLOOD COUNT 3.24 x10^6/uL (3.50-5.40); RED CELL DISTRIBUTION WIDTH 16.8 % (11.5-14.5); WHITE BLOOD COUNT 7.7 x10^3/uL (4.0-11.0)
[2021-05-03 03:50] LABS: CALCIUM 8.1 mg/dL (8.5-10.1); CREATININE 0.7 mg/dL (0.6-1.0); GFR 83.2; MAGNESIUM 1.8 mg/dL (1.8-2.4); PHOSPHORUS 4.4 mg/dL (2.6-4.7); POTASSIUM 4.3 mmol/L (3.5-5.1)
--- NOTE | 2021-05-03 07:14 | PDOC ---
PULMONARY PROGRESS NOTES DATE: 05/03/21 TIME: 07:14 Subjective denies sob has cough no pain Vitals Vital Signs Date Time Temp Pulse Resp B/P (MAP) Pulse Ox O2 Delivery O2 Flow Rate FiO2 05/03/21 03:00 97.4 78 18 135/67 (89) 96 Room Air 97.4 ROS: No Nausea General: Alert, Oriented X4 HEENT: Other Lungs: Other (b lat diminished) Cardiovascular: S1, S2 Abdomen: Soft, Non-tender Neuro Exam: Alert Skin: Warm Labs Laboratory Tests Test 05/01/21 23:10 05/02/21 06:15 05/02/21 07:38 05/02/21 11:35 Heparin Anti-Xa Act, Unfractionated 0.15 IU/mL (0.30-0.70) 0.19 IU/mL (0.30-0.70) White Blood Count 8.0 x10^3/uL (4.0-11.0) Red Blood Count 3.38 x10^6/uL (3.50-5.40) Hemoglobin 9.6 g/dL (12.0-15.5) Hematocrit 29.7 % (36.0-47.0) Mean Corpuscular Volume 88 fL (79-100) Mean Corpuscular Hemoglobin 29 pg (25-35) Mean Corpuscular Hemoglobin Concent 32 g/dL (31-37) Red Cell Distribution Width 16.6 % (11.5-14.5) Platelet Count 338 x10^3/uL (140-400) Neutrophils (%) (Auto) 69 % (31-73) Lymphocytes (%) (Auto) 22 % (24-48) Monocytes (%) (Auto) 7 % (0-9) Eosinophils (%) (Auto) 1 % (0-3) Basophils (%) (Auto) 1 % (0-3) Neutrophils # (Auto) 5.5 x10^3/uL (1.8-7.7) Lymphocytes # (Auto) 1.8 x10^3/uL (1.0-4.8) Monocytes # (Auto) 0.6 x10^3/uL (0.0-1.1) Eosinophils # (Auto) 0.1 x10^3/uL (0.0-0.7) Basophils # (Auto) 0.1 x10^3/uL (0.0-0.2) Sodium Level 138 mmol/L (136-145) Potassium Level 4.1 mmol/L (3.5-5.1) Chloride Level 100 mmol/L (98-107) Carbon Dioxide Level 29 mmol/L (21-32) Anion Gap 9 (6-14) Blood Urea Nitrogen 11 mg/dL (7-20) Creatinine 0.6 mg/dL (0.6-1.0) Estimated GFR (Cockcroft-Gault) 99.4 Glucose Level 92 mg/dL (70-99) Calcium Level 8.4 mg/dL (8.5-10.1) Glucose (Fingerstick) 96 mg/dL (70-99) 93 mg/dL (70-99) Test 05/02/21 17:00 05/02/21 17:02 05/02/21 20:31 05/02/21 23:20 Heparin Anti-Xa Act, Unfractionated 0.44 IU/mL (0.30-0.70) 0.41 IU/mL (0.30-0.70) Glucose (Fingerstick) 187 mg/dL (70-99) 332 mg/dL (70-99) Test 05/03/21 02:50 White Blood Count 7.7 x10^3/uL (4.0-11.0) Red Blood Count 3.24 x10^6/uL (3.50-5.40) Hemoglobin 9.3 g/dL (12.0-15.5) Hematocrit 28.5 % (36.0-47.0) Mean Corpuscular Volume 88 fL (79-100) Mean Corpuscular Hemoglobin 29 pg (25-35) Mean Corpuscular Hemoglobin Concent 33 g/dL (31-37) Red Cell Distribution Width 16.8 % (11.5-14.5) Platelet Count 326 x10^3/uL (140-400) Neutrophils (%) (Auto) 81 % (31-73) Lymphocytes (%) (Auto) 15 % (24-48) Monocytes (%) (Auto) 4 % (0-9) Eosinophils (%) (Auto) 0 % (0-3) Basophils (%) (Auto) 1 % (0-3) Neutrophils # (Auto) 6.2 x10^3/uL (1.8-7.7) Lymphocytes # (Auto) 1.1 x10^3/uL (1.0-4.8) Monocytes # (Auto) 0.3 x10^3/uL (0.0-1.1) Eosinophils # (Auto) 0.0 x10^3/uL (0.0-0.7) Basophils # (Auto) 0.1 x10^3/uL (0.0-0.2) Sodium Level 133 mmol/L (136-145) Potassium Level 4.3 mmol/L (3.5-5.1) Chloride Level 98 mmol/L (98-107) Carbon Dioxide Level 28 mmol/L (21-32) Anion Gap 7 (6-14) Blood Urea Nitrogen 13 mg/dL (7-20) Creatinine 0.7 mg/dL (0.6-1.0) Estimated GFR (Cockcroft-Gault) 83.2 Glucose Level 188 mg/dL (70-99) Calcium Level 8.1 mg/dL (8.5-10.1) Phosphorus Level 4.4 mg/dL (2.6-4.7) Magnesium Level 1.8 mg/dL (1.8-2.4) Laboratory Tests Test 05/02/21 07:38 05/02/21 11:35 05/02/21 17:00 05/02/21 17:02 Glucose (Fingerstick) 96 mg/dL (70-99) 93 mg/dL (70-99) 187 mg/dL (70-99) Heparin Anti-Xa Act, Unfractionated 0.44 IU/mL (0.30-0.70) Test 05/02/21 20:31 05/02/21 23:20 05/03/21 02:50 Glucose (Fingerstick) 332 mg/dL (70-99) Heparin Anti-Xa Act, Unfractionated 0.41 IU/mL (0.30-0.70) White Blood Count 7.7 x10^3/uL (4.0-11.0) Red Blood Count 3.24 x10^6/uL (3.50-5.40) Hemoglobin 9.3 g/dL (12.0-15.5) Hematocrit 28.5 % (36.0-47.0) Mean Corpuscular Volume 88 fL (79-100) Mean Corpuscular Hemoglobin 29 pg (25-35) Mean Corpuscular Hemoglobin Concent 33 g/dL (31-37) Red Cell Distribution Width 16.8 % (11.5-14.5) Platelet Count 326 x10^3/uL (140-400) Neutrophils (%) (Auto) 81 % (31-73) Lymphocytes (%) (Auto) 15 % (24-48) Monocytes (%) (Auto) 4 % (0-9) Eosinophils (%) (Auto) 0 % (0-3) Basophils (%) (Auto) 1 % (0-3) Neutrophils # (Auto) 6.2 x10^3/uL (1.8-7.7) Lymphocytes # (Auto) 1.1 x10^3/uL (1.0-4.8) Monocytes # (Auto) 0.3 x10^3/uL (0.0-1.1) Eosinophils # (Auto) 0.0 x10^3/uL (0.0-0.7) Basophils # (Auto) 0.1 x10^3/uL (0.0-0.2) Sodium Level 133 mmol/L (136-145) Potassium Level 4.3 mmol/L (3.5-5.1) Chloride Level 98 mmol/L (98-107) Carbon Dioxide Level 28 mmol/L (21-32) Anion Gap 7 (6-14) Blood Urea Nitrogen 13 mg/dL (7-20) Creatinine 0.7 mg/dL (0.6-1.0) Estimated GFR (Cockcroft-Gault) 83.2 Glucose Level 188 mg/dL (70-99) Calcium Level 8.1 mg/dL (8.5-10.1) Phosphorus Level 4.4 mg/dL (2.6-4.7) Magnesium Level 1.8 mg/dL (1.8-2.4) Impression . IMPRESSION: 1. Acute hypoxemic respiratory failure, multifactorial. 2. Abnormal CT chest revealing a large right upper lobe/mediastinal mass. 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 5. Tobacco dependence. 6. Chronic obstructive pulmonary disease. Plan . DISCUSSION: 1. The above was discussed with interventional radiologist, Dr. Phillips on 05/02; for now, we will continue IV heparin; possible insertion of SVC stent in next week. 2. Possible biopsy of the lytic pelvic bone. 3. 02 titration 4. cont steroid 5. cont abx 6. BD discussed w pt JUAN C MADDOX MD May 03, 2021 07:14
[2021-05-03 07:54] VITALS: BP 135/64
[2021-05-03] MEDS: LISINOPRIL 10 MG TABLET PO SCH (08:25)
[2021-05-03] MEDS: methylPREDNISolone SOD SUCC PF 125 MG/2 ML VIAL. IV SCH (08:27)
[2021-05-03] MEDS: INSULIN LISPRO 300 UNITS/3 ML VIAL. SQ SCH ×3 (08:38→17:20)
[2021-05-03] MEDS: ALBUTEROL SULFATE 2.5 MG/3 ML NEBU. NEB SCH ×4 (08:51→21:06)
[2021-05-03 10:44] VITALS: BP 117/54
--- NOTE | 2021-05-03 11:11 | PDOC ---
[facility] [facility] PROGRESS NOTE Date of Service DOS: DATE: 05/03/21 TIME: 11:09 Chief Complaint Chief Complaint Assessment/Plan Hypertensive urgency Supra vena cava syndrome Large right suprahilar/mediastinal mass concerning for malignancy likely metastatic Tobacco abuse Obesity class I Vascular surgery consulted appreciate the recommendationswould recommend palliative SVC stent Pulmonology consult for lung biopsy Interventional radiology consult for thrombolysis and lung biopsy Oncology consult Continue heparin drip IV and p.o. antihypertensive regimen to maintain systolic blood pressure goal in the hospital between 140 180 Heparin drip for DVT prophylaxis ADA diet CODE STATUS full Discussed with RN and SW Disposition pending IR thrombolysis versus thrombectomy DPOA: Sister A total of 34 minutes of critical care time was spent in reviewing chart, labs, and images. Discussed with RN and SW. History of Present Illness History of Present Illness Patient is a 62-year-old female with past medical history of diabetes, hypertension, 55-year of smoking who comes in with bilateral upper extremity swelling and bilateral lower extremity shortness of breath for the last week. Apparently patient was seen in [place] 1 week ago for pneumonialike symptoms and she was treated with antibiotics. She was also told that they did scan her and they told her that she had a mass in her lung. She did not follow-up with this. Patient did have a Covid positivity in December and she was having shortness of breath at that time. She does denies have any history of CHF or kidney disease. Patient went to [facility] ER to be evaluated because of her upper extremity swelling. CT of the chest was significant for a right suprahilar mass extending into the mediastinum and supra vena cava occlusion with acute a ppearing thrombus. For this reason patient was sent over for further evaluation of possible thrombectomy with interventional radiology. Pulmonology and oncology are consulted 05/03/2021 No acute events overnight. Patient seen examined bedside. No complaints the patient at this time. Facial plethora is minimal. Continue on heparin drip. Patient's chart, labs, images were reviewed and discussed with RN Vitals/I&O Vitals/I&O: Vital Signs Date Time Temp Pulse Resp B/P (MAP) Pulse Ox O2 Delivery O2 Flow Rate FiO2 05/03/21 10:44 97.4 80 20 117/54 (75) 93 Room Air 97.4 I & O 05/02/21 05/02/21 05/03/21 15:00 23:00 07:00 Intake Total 240 ml 640 ml Output Total 0 ml Balance 240 ml 640 ml 0 ml Labs Labs: Laboratory Tests Test 05/02/21 11:35 05/02/21 17:00 05/02/21 17:02 05/02/21 20:31 Glucose (Fingerstick) 93 mg/dL (70-99) 187 mg/dL (70-99) 332 mg/dL (70-99) Heparin Anti-Xa Act, Unfractionated 0.44 IU/mL (0.30-0.70) Test 05/02/21 23:20 05/03/21 02:50 05/03/21 06:20 05/03/21 07:33 Heparin Anti-Xa Act, Unfractionated 0.41 IU/mL (0.30-0.70) 0.28 IU/mL (0.30-0.70) White Blood Count 7.7 x10^3/uL (4.0-11.0) Red Blood Count 3.24 x10^6/uL (3.50-5.40) Hemoglobin 9.3 g/dL (12.0-15.5) Hematocrit 28.5 % (36.0-47.0) Mean Corpuscular Volume 88 fL (79-100) Mean Corpuscular Hemoglobin 29 pg (25-35) Mean Corpuscular Hemoglobin Concent 33 g/dL (31-37) Red Cell Distribution Width 16.8 % (11.5-14.5) Platelet Count 326 x10^3/uL (140-400) Neutrophils (%) (Auto) 81 % (31-73) Lymphocytes (%) (Auto) 15 % (24-48) Monocytes (%) (Auto) 4 % (0-9) Eosinophils (%) (Auto) 0 % (0-3) Basophils (%) (Auto) 1 % (0-3) Neutrophils # (Auto) 6.2 x10^3/uL (1.8-7.7) Lymphocytes # (Auto) 1.1 x10^3/uL (1.0-4.8) Monocytes # (Auto) 0.3 x10^3/uL (0.0-1.1) Eosinophils # (Auto) 0.0 x10^3/uL (0.0-0.7) Basophils # (Auto) 0.1 x10^3/uL (0.0-0.2) Sodium Level 133 mmol/L (136-145) Potassium Level 4.3 mmol/L (3.5-5.1) Chloride Level 98 mmol/L (98-107) Carbon Dioxide Level 28 mmol/L (21-32) Anion Gap 7 (6-14) Blood Urea Nitrogen 13 mg/dL (7-20) Creatinine 0.7 mg/dL (0.6-1.0) Estimated GFR (Cockcroft-Gault) 83.2 Glucose Level 188 mg/dL (70-99) Calcium Level 8.1 mg/dL (8.5-10.1) Phosphorus Level 4.4 mg/dL (2.6-4.7) Magnesium Level 1.8 mg/dL (1.8-2.4) Glucose (Fingerstick) 158 mg/dL (70-99) Comment Review of Relevant I have reviewed the following items dena (where applicable) has been applied. Medications: Current Medications Medications (Trade) Dose Ordered Sig/Rajani Route PRN Reason Start Time Stop Time Status Last Admin Dose Admin Methylprednisolone Sodium Succinate (SOLU-Medrol 125MG VIAL) 125 mg DAILY IV 05/03/21 09:00 05/03/21 08:27 Methylprednisolone Sodium Succinate (SOLU-Medrol 125MG VIAL) 125 mg 1X ONCE IV 05/02/21 12:00 05/02/21 12:03 DC 05/02/21 12:26 Amlodipine Besylate (Norvasc) 5 mg QHS PO 05/02/21 21:00 05/02/21 21:27 Insulin Human Lispro (HumaLOG) 0-9 UNITS TIDWMEALS SQ 05/02/21 17:00 05/03/21 08:38 Justifications for Admission Other Justification Right lung mass and hypertensive urgency RAFAELA LEUNG MD May 03, 2021 11:11
[2021-05-03] MEDS: HEPARIN 25,000UTS/250ML PREMIX 250 ML IV PRN (11:27)
[2021-05-03 15:00] VITALS: BP 122/55
[2021-05-03 19:05] VITALS: BP 146/69
[2021-05-03] MEDS: cefTRIAXone IV Push 1 GM VIAL. IVP SCH (22:19)
[2021-05-03] MEDS: INSULIN GLARGINE SYRINGE. SQ SCH (22:35)
[2021-05-03 23:43] VITALS: BP 136/68
[2021-05-04] MEDS: HEPARIN 25,000UTS/250ML PREMIX 250 ML IV PRN ×2 (01:11→17:34)
[2021-05-04 03:50] VITALS: BP 122/67
[2021-05-04 07:00] VITALS: BP 133/67
--- NOTE | 2021-05-04 07:31 | PDOC ---
PULMONARY PROGRESS NOTES DATE: 05/04/21 TIME: 07:30 Subjective breathing tx hel sob, cough no pain Vitals Vital Signs Date Time Temp Pulse Resp B/P (MAP) Pulse Ox O2 Delivery O2 Flow Rate FiO2 05/04/21 03:50 97.7 70 21 122/67 (85) 94 Room Air 97.7 ROS: No Nausea General: Alert, Oriented X4 HEENT: Other Lungs: Other (b lat diminished) Cardiovascular: S1, S2 Abdomen: Soft, Non-tender Neuro Exam: Alert Skin: Warm Labs Laboratory Tests Test 05/02/21 07:38 05/02/21 11:35 05/02/21 17:00 05/02/21 17:02 Glucose (Fingerstick) 96 mg/dL (70-99) 93 mg/dL (70-99) 187 mg/dL (70-99) Heparin Anti-Xa Act, Unfractionated 0.44 IU/mL (0.30-0.70) Test 05/02/21 20:31 05/02/21 23:20 05/03/21 02:50 05/03/21 06:20 Glucose (Fingerstick) 332 mg/dL (70-99) Heparin Anti-Xa Act, Unfractionated 0.41 IU/mL (0.30-0.70) 0.28 IU/mL (0.30-0.70) White Blood Count 7.7 x10^3/uL (4.0-11.0) Red Blood Count 3.24 x10^6/uL (3.50-5.40) Hemoglobin 9.3 g/dL (12.0-15.5) Hematocrit 28.5 % (36.0-47.0) Mean Corpuscular Volume 88 fL (79-100) Mean Corpuscular Hemoglobin 29 pg (25-35) Mean Corpuscular Hemoglobin Concent 33 g/dL (31-37) Red Cell Distribution Width 16.8 % (11.5-14.5) Platelet Count 326 x10^3/uL (140-400) Neutrophils (%) (Auto) 81 % (31-73) Lymphocytes (%) (Auto) 15 % (24-48) Monocytes (%) (Auto) 4 % (0-9) Eosinophils (%) (Auto) 0 % (0-3) Basophils (%) (Auto) 1 % (0-3) Neutrophils # (Auto) 6.2 x10^3/uL (1.8-7.7) Lymphocytes # (Auto) 1.1 x10^3/uL (1.0-4.8) Monocytes # (Auto) 0.3 x10^3/uL (0.0-1.1) Eosinophils # (Auto) 0.0 x10^3/uL (0.0-0.7) Basophils # (Auto) 0.1 x10^3/uL (0.0-0.2) Sodium Level 133 mmol/L (136-145) Potassium Level 4.3 mmol/L (3.5-5.1) Chloride Level 98 mmol/L (98-107) Carbon Dioxide Level 28 mmol/L (21-32) Anion Gap 7 (6-14) Blood Urea Nitrogen 13 mg/dL (7-20) Creatinine 0.7 mg/dL (0.6-1.0) Estimated GFR (Cockcroft-Gault) 83.2 Glucose Level 188 mg/dL (70-99) Calcium Level 8.1 mg/dL (8.5-10.1) Phosphorus Level 4.4 mg/dL (2.6-4.7) Magnesium Level 1.8 mg/dL (1.8-2.4) Test 05/03/21 07:33 05/03/21 11:21 05/03/21 16:30 05/03/21 17:15 Glucose (Fingerstick) 158 mg/dL (70-99) 194 mg/dL (70-99) 381 mg/dL (70-99) Heparin Anti-Xa Act, Unfractionated 0.74 IU/mL (0.30-0.70) Test 05/03/21 20:52 05/04/21 00:30 Glucose (Fingerstick) 234 mg/dL (70-99) Heparin Anti-Xa Act, Unfractionated 0.69 IU/mL (0.30-0.70) Laboratory Tests Test 05/03/21 07:33 05/03/21 11:21 05/03/21 16:30 05/03/21 17:15 Glucose (Fingerstick) 158 mg/dL (70-99) 194 mg/dL (70-99) 381 mg/dL (70-99) Heparin Anti-Xa Act, Unfractionated 0.74 IU/mL (0.30-0.70) Test 05/03/21 20:52 05/04/21 00:30 Glucose (Fingerstick) 234 mg/dL (70-99) Heparin Anti-Xa Act, Unfractionated 0.69 IU/mL (0.30-0.70) Impression . IMPRESSION: 1. Acute hypoxemic respiratory failure, multifactorial. 2. Abnormal CT chest revealing a large right upper lobe/mediastinal mass. 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 5. Tobacco dependence. 6. Chronic obstructive pulmonary disease. Plan . 05/04 1. continue IV heparin; possible insertion of SVC stent in next week. 2. Possible biopsy of the lytic pelvic bone. 3. 02 titration 4. cont steroid 5. cont abx 6. BD discussed w pt DISCUSSION: 1. The above was discussed with interventional radiologist, Dr. Phillips on 05/02; for now, we will continue IV heparin; possible insertion of SVC stent in next week. 2. Possible biopsy of the lytic pelvic bone. 3. 02 titration 4. cont steroid 5. cont abx 6. BD discussed w pt JUAN C MADDOX MD May 04, 2021 07:31
[2021-05-04] MEDS: ALBUTEROL SULFATE 2.5 MG/3 ML NEBU. NEB SCH ×4 (07:42→20:57)
[2021-05-04] MEDS: INSULIN LISPRO 300 UNITS/3 ML VIAL. SQ SCH ×3 (08:00→17:21)
[2021-05-04 08:49] LABS: BASO % 0 % (0-3); EOS % 0 % (0-3); HEMATOCRIT 29.5 % (36.0-47.0); HEMOGLOBIN 9.6 g/dL (12.0-15.5); LYMPH # 2.7 x10^3/uL (1.0-4.8); LYMPH % 25 % (24-48); MEAN CORPUSCULAR HEMOGLOBIN 29 pg (25-35); MEAN CORPUSCULAR HGB CONC 33 g/dL (31-37); MEAN CORPUSCULAR VOLUME 88 fL (79-100); MONO # 0.6 x10^3/uL (0.0-1.1); MONO % 5 % (0-9); NEUT # 7.7 x10^3/uL (1.8-7.7); NEUT % 70 % (31-73); PLATELET COUNT 360 x10^3/uL (140-400); RED BLOOD COUNT 3.37 x10^6/uL (3.50-5.40); RED CELL DISTRIBUTION WIDTH 16.6 % (11.5-14.5); WHITE BLOOD COUNT 11.1 x10^3/uL (4.0-11.0)
[2021-05-04 08:58] LABS: CALCIUM 8.2 mg/dL (8.5-10.1); CREATININE 0.7 mg/dL (0.6-1.0); GFR 83.2; MAGNESIUM 1.6 mg/dL (1.8-2.4); POTASSIUM 3.9 mmol/L (3.5-5.1)
[2021-05-04] MEDS: LISINOPRIL 10 MG TABLET PO SCH (09:19)
[2021-05-04] MEDS ORDERED: METF10007 PO (09:21)
[2021-05-04] MEDS ORDERED: LISI10TA16 PO (09:21)
[2021-05-04] MEDS: methylPREDNISolone SOD SUCC PF 125 MG/2 ML VIAL. IV SCH (09:21)
[2021-05-04] MEDS: INSULIN GLARGINE SYRINGE. SQ SCH ×2 (09:31→22:55)
--- NOTE | 2021-05-04 10:30 | PDOC ---
[employer] PROGRESS NOTE Date of Service DOS: DATE: 05/04/21 TIME: 10:29 Chief Complaint Chief Complaint Assessment/Plan Hypertensive urgency Supra vena cava syndrome Large right suprahilar/mediastinal mass concerning for malignancy likely metastatic Tobacco abuse Obesity class I Vascular surgery consulted appreciate the recommendationswould recommend palliative SVC stent possibly tomorrow Pulmonology consult for lung biopsy Interventional radiology consult for thrombolysis and lung biopsy Oncology consult Continue heparin drip IV and p.o. antihypertensive regimen to maintain systolic blood pressure goal in the hospital between 140 180 Heparin drip for DVT prophylaxis ADA diet CODE STATUS full Discussed with RN and SW Disposition pending IR thrombolysis versus thrombectomy DPOA: Sister A total of 34 minutes of critical care time was spent in reviewing chart, labs, and images. Discussed with RN and SW. History of Present Illness History of Present Illness Patient is a 62-year-old female with past medical history of diabetes, hypertension, 55-year of smoking who comes in with bilateral upper extremity swelling and bilateral lower extremity shortness of breath for the last week. Apparently patient was seen in [place] 1 week ago for pneumonialike symptoms and she was treated with antibiotics. She was also told that they did scan her and they told her that she had a mass in her lung. She did not follow-up with this. Patient did have a Covid positivity in December and she was having shortness of breath at that time. She does denies have any history of CHF or kidney disease. Patient went to [facility] ER to be evaluated because of her upper extremity swelling. CT of the chest was significant for a right suprahilar mass extending into the mediastinum and supra vena cava occlusion with acute appearing thrombus. For this reason patient was sent over for further evaluation of possible thrombectomy with interventional radiology. Pulmonology and oncology are consulted 05/03/2021 No acute events overnight. Patient seen examined bedside. No complaints the patient at this time. Facial plethora is minimal. Continue on heparin drip. Patient's chart, labs, images were reviewed and discussed with RN 05/04/2021 No acute events overnight. Patient seen examined bedside. Sugars are well controlled on current insulin regimen. Continue with heparin drip. Plan for SVC stent tomorrow with IR and possible lung biopsy. Patient's chart, labs, images were reviewed and discussed with RN Vitals/I&O Vitals/I&O: Vital Signs Date Time Temp Pulse Resp B/P (MAP) Pulse Ox O2 Delivery O2 Flow Rate FiO2 05/04/21 09:19 72 133/67 05/04/21 07:43 98 Room Air 05/04/21 07:00 98.0 21 98.0 I & O 05/03/21 05/03/21 05/04/21 15:00 23:00 07:00 Intake Total 1340 ml 150 ml Balance 1340 ml 150 ml Physical Exam General: Alert, Oriented X3, Cooperative Heart: Regular rate Lungs: Clear, Other (b lat diminished) Abdomen: Normal bowel sounds Extremities: No clubbing Skin: No rashes Labs Labs: Laboratory Tests Test 05/03/21 11:21 05/03/21 16:30 05/03/21 17:15 05/03/21 20:52 Glucose (Fingerstick) 194 mg/dL (70-99) 381 mg/dL (70-99) 234 mg/dL (70-99) Heparin Anti-Xa Act, Unfractionated 0.74 IU/mL (0.30-0.70) Test 05/04/21 00:30 05/04/21 07:36 05/04/21 08:25 Heparin Anti-Xa Act, Unfractionated 0.69 IU/mL (0.30-0.70) 0.80 IU/mL (0.30-0.70) Glucose (Fingerstick) 102 mg/dL (70-99) White Blood Count 11.1 x10^3/uL (4.0-11.0) Red Blood Count 3.37 x10^6/uL (3.50-5.40) Hemoglobin 9.6 g/dL (12.0-15.5) Hematocrit 29.5 % (36.0-47.0) Mean Corpuscular Volume 88 fL (79-100) Mean Corpuscular Hemoglobin 29 pg (25-35) Mean Corpuscular Hemoglobin Concent 33 g/dL (31-37) Red Cell Distribution Width 16.6 % (11.5-14.5) Platelet Count 360 x10^3/uL (140-400) Neutrophils (%) (Auto) 70 % (31-73) Lymphocytes (%) (Auto) 25 % (24-48) Monocytes (%) (Auto) 5 % (0-9) Eosinophils (%) (Auto) 0 % (0-3) Basophils (%) (Auto) 0 % (0-3) Neutrophils # (Auto) 7.7 x10^3/uL (1.8-7.7) Lymphocytes # (Auto) 2.7 x10^3/uL (1.0-4.8) Monocytes # (Auto) 0.6 x10^3/uL (0.0-1.1) Eosinophils # (Auto) 0.0 x10^3/uL (0.0-0.7) Basophils # (Auto) 0.0 x10^3/uL (0.0-0.2) Sodium Level 136 mmol/L (136-145) Potassium Level 3.9 mmol/L (3.5-5.1) Chloride Level 99 mmol/L (98-107) Carbon Dioxide Level 31 mmol/L (21-32) Anion Gap 6 (6-14) Blood Urea Nitrogen 12 mg/dL (7-20) Creatinine 0.7 mg/dL (0.6-1.0) Estimated GFR (Cockcroft-Gault) 83.2 Glucose Level 92 mg/dL (70-99) Calcium Level 8.2 mg/dL (8.5-10.1) Magnesium Level 1.6 mg/dL (1.8-2.4) Comment Review of Relevant I have reviewed the following items dena (where applicable) has been applied. Medications: Current Medications Medications (Trade) Dose Ordered Sig/Rajani Route PRN Reason Start Time Stop Time Status Last Admin Dose Admin Insulin Glargine (Lantus Syringe) 10 unit BID SQ 05/03/21 21:00 05/04/21 09:31 Justifications for Admission Other Justification Right lung mass and hypertensive urgency RAFAELA LEUNG MD May 04, 2021 10:30
[2021-05-04 10:54] VITALS: BP 123/55
[2021-05-04] MEDS ORDERED: MAGNESIUM SULFATE 2GM 50 ML IV ONE (11:30)
[2021-05-04 14:17] VITALS: BP 153/59
[2021-05-04 19:50] VITALS: BP 145/59
[2021-05-04] MEDS: cefTRIAXone IV Push 1 GM VIAL. IVP SCH (22:45)
[2021-05-04 23:10] VITALS: BP 132/60
[2021-05-05] VITALS (21 sets, daily range): BP systolic 81–185; BP diastolic 46–76
[2021-05-05 06:43] LABS: BASO % 1 % (0-3); EOS % 0 % (0-3); HEMATOCRIT 28.1 % (36.0-47.0); HEMOGLOBIN 9.2 g/dL (12.0-15.5); LYMPH # 2.1 x10^3/uL (1.0-4.8); LYMPH % 20 % (24-48); MEAN CORPUSCULAR HEMOGLOBIN 29 pg (25-35); MEAN CORPUSCULAR HGB CONC 33 g/dL (31-37); MEAN CORPUSCULAR VOLUME 88 fL (79-100); MONO # 0.6 x10^3/uL (0.0-1.1); MONO % 6 % (0-9); NEUT # 7.6 x10^3/uL (1.8-7.7); NEUT % 74 % (31-73); PLATELET COUNT 348 x10^3/uL (140-400); RED BLOOD COUNT 3.18 x10^6/uL (3.50-5.40); RED CELL DISTRIBUTION WIDTH 17.1 % (11.5-14.5); WHITE BLOOD COUNT 10.3 x10^3/uL (4.0-11.0)
[2021-05-05 06:59] LABS: CALCIUM 8.2 mg/dL (8.5-10.1); CREATININE 0.8 mg/dL (0.6-1.0); GFR 71.3; POTASSIUM 4.3 mmol/L (3.5-5.1)
[2021-05-05] MEDS: INSULIN LISPRO 300 UNITS/3 ML VIAL. SQ SCH ×3 (08:00→17:56)
--- NOTE | 2021-05-05 08:17 | PDOC ---
PULMONARY PROGRESS NOTES DATE: 05/05/21 TIME: 08:13 Subjective DENIES SOA Vitals Vital Signs Date Time Temp Pulse Resp B/P (MAP) Pulse Ox O2 Delivery O2 Flow Rate FiO2 05/05/21 03:35 97.7 67 18 138/62 (87) 94 Room Air 97.7 ROS: No Nausea General: Alert, Oriented X4 HEENT: Other Lungs: Clear, Other (b lat diminished) Cardiovascular: S1, S2 Abdomen: Soft, Non-tender Neuro Exam: Alert Skin: Warm Labs Laboratory Tests Test 05/03/21 11:21 05/03/21 16:30 05/03/21 17:15 05/03/21 20:52 Glucose (Fingerstick) 194 mg/dL (70-99) 381 mg/dL (70-99) 234 mg/dL (70-99) Heparin Anti-Xa Act, Unfractionated 0.74 IU/mL (0.30-0.70) Test 05/04/21 00:30 05/04/21 07:36 05/04/21 08:25 05/04/21 11:25 Heparin Anti-Xa Act, Unfractionated 0.69 IU/mL (0.30-0.70) 0.80 IU/mL (0.30-0.70) Glucose (Fingerstick) 102 mg/dL (70-99) 183 mg/dL (70-99) White Blood Count 11.1 x10^3/uL (4.0-11.0) Red Blood Count 3.37 x10^6/uL (3.50-5.40) Hemoglobin 9.6 g/dL (12.0-15.5) Hematocrit 29.5 % (36.0-47.0) Mean Corpuscular Volume 88 fL (79-100) Mean Corpuscular Hemoglobin 29 pg (25-35) Mean Corpuscular Hemoglobin Concent 33 g/dL (31-37) Red Cell Distribution Width 16.6 % (11.5-14.5) Platelet Count 360 x10^3/uL (140-400) Neutrophils (%) (Auto) 70 % (31-73) Lymphocytes (%) (Auto) 25 % (24-48) Monocytes (%) (Auto) 5 % (0-9) Eosinophils (%) (Auto) 0 % (0-3) Basophils (%) (Auto) 0 % (0-3) Neutrophils # (Auto) 7.7 x10^3/uL (1.8-7.7) Lymphocytes # (Auto) 2.7 x10^3/uL (1.0-4.8) Monocytes # (Auto) 0.6 x10^3/uL (0.0-1.1) Eosinophils # (Auto) 0.0 x10^3/uL (0.0-0.7) Basophils # (Auto) 0.0 x10^3/uL (0.0-0.2) Sodium Level 136 mmol/L (136-145) Potassium Level 3.9 mmol/L (3.5-5.1) Chloride Level 99 mmol/L (98-107) Carbon Dioxide Level 31 mmol/L (21-32) Anion Gap 6 (6-14) Blood Urea Nitrogen 12 mg/dL (7-20) Creatinine 0.7 mg/dL (0.6-1.0) Estimated GFR (Cockcroft-Gault) 83.2 Glucose Level 92 mg/dL (70-99) Calcium Level 8.2 mg/dL (8.5-10.1) Magnesium Level 1.6 mg/dL (1.8-2.4) Test 05/04/21 14:48 05/04/21 16:10 05/04/21 20:51 05/04/21 21:48 Heparin Anti-Xa Act, Unfractionated 0.70 IU/mL (0.30-0.70) 0.57 IU/mL (0.30-0.70) Glucose (Fingerstick) 234 mg/dL (70-99) 305 mg/dL (70-99) Test 05/05/21 04:45 White Blood Count 10.3 x10^3/uL (4.0-11.0) Red Blood Count 3.18 x10^6/uL (3.50-5.40) Hemoglobin 9.2 g/dL (12.0-15.5) Hematocrit 28.1 % (36.0-47.0) Mean Corpuscular Volume 88 fL (79-100) Mean Corpuscular Hemoglobin 29 pg (25-35) Mean Corpuscular Hemoglobin Concent 33 g/dL (31-37) Red Cell Distribution Width 17.1 % (11.5-14.5) Platelet Count 348 x10^3/uL (140-400) Neutrophils (%) (Auto) 74 % (31-73) Lymphocytes (%) (Auto) 20 % (24-48) Monocytes (%) (Auto) 6 % (0-9) Eosinophils (%) (Auto) 0 % (0-3) Basophils (%) (Auto) 1 % (0-3) Neutrophils # (Auto) 7.6 x10^3/uL (1.8-7.7) Lymphocytes # (Auto) 2.1 x10^3/uL (1.0-4.8) Monocytes # (Auto) 0.6 x10^3/uL (0.0-1.1) Eosinophils # (Auto) 0.0 x10^3/uL (0.0-0.7) Basophils # (Auto) 0.0 x10^3/uL (0.0-0.2) Heparin Anti-Xa Act, Unfractionated 0.73 IU/mL (0.30-0.70) Sodium Level 134 mmol/L (136-145) Potassium Level 4.3 mmol/L (3.5-5.1) Chloride Level 99 mmol/L (98-107) Carbon Dioxide Level 30 mmol/L (21-32) Anion Gap 5 (6-14) Blood Urea Nitrogen 13 mg/dL (7-20) Creatinine 0.8 mg/dL (0.6-1.0) Estimated GFR (Cockcroft-Gault) 71.3 Glucose Level 146 mg/dL (70-99) Calcium Level 8.2 mg/dL (8.5-10.1) Magnesium Level 2.0 mg/dL (1.8-2.4) Laboratory Tests Test 05/04/21 08:25 05/04/21 11:25 05/04/21 14:48 05/04/21 16:10 White Blood Count 11.1 x10^3/uL (4.0-11.0) Red Blood Count 3.37 x10^6/uL (3.50-5.40) Hemoglobin 9.6 g/dL (12.0-15.5) Hematocrit 29.5 % (36.0-47.0) Mean Corpuscular Volume 88 fL (79-100) Mean Corpuscular Hemoglobin 29 pg (25-35) Mean Corpuscular Hemoglobin Concent 33 g/dL (31-37) Red Cell Distribution Width 16.6 % (11.5-14.5) Platelet Count 360 x10^3/uL (140-400) Neutrophils (%) (Auto) 70 % (31-73) Lymphocytes (%) (Auto) 25 % (24-48) Monocytes (%) (Auto) 5 % (0-9) Eosinophils (%) (Auto) 0 % (0-3) Basophils (%) (Auto) 0 % (0-3) Neutrophils # (Auto) 7.7 x10^3/uL (1.8-7.7) Lymphocytes # (Auto) 2.7 x10^3/uL (1.0-4.8) Monocytes # (Auto) 0.6 x10^3/uL (0.0-1.1) Eosinophils # (Auto) 0.0 x10^3/uL (0.0-0.7) Basophils # (Auto) 0.0 x10^3/uL (0.0-0.2) Heparin Anti-Xa Act, Unfractionated 0.80 IU/mL (0.30-0.70) 0.70 IU/mL (0.30-0.70) Sodium Level 136 mmol/L (136-145) Potassium Level 3.9 mmol/L (3.5-5.1) Chloride Level 99 mmol/L (98-107) Carbon Dioxide Level 31 mmol/L (21-32) Anion Gap 6 (6-14) Blood Urea Nitrogen 12 mg/dL (7-20) Creatinine 0.7 mg/dL (0.6-1.0) Estimated GFR (Cockcroft-Gault) 83.2 Glucose Level 92 mg/dL (70-99) Calcium Level 8.2 mg/dL (8.5-10.1) Magnesium Level 1.6 mg/dL (1.8-2.4) Glucose (Fingerstick) 183 mg/dL (70-99) 234 mg/dL (70-99) Test 05/04/21 20:51 05/04/21 21:48 05/05/21 04:45 Glucose (Fingerstick) 305 mg/dL (70-99) Heparin Anti-Xa Act, Unfractionated 0.57 IU/mL (0.30-0.70) 0.73 IU/mL (0.30-0.70) White Blood Count 10.3 x10^3/uL (4.0-11.0) Red Blood Count 3.18 x10^6/uL (3.50-5.40) Hemoglobin 9.2 g/dL (12.0-15.5) Hematocrit 28.1 % (36.0-47.0) Mean Corpuscular Volume 88 fL (79-100) Mean Corpuscular Hemoglobin 29 pg (25-35) Mean Corpuscular Hemoglobin Concent 33 g/dL (31-37) Red Cell Distribution Width 17.1 % (11.5-14.5) Platelet Count 348 x10^3/uL (140-400) Neutrophils (%) (Auto) 74 % (31-73) Lymphocytes (%) (Auto) 20 % (24-48) Monocytes (%) (Auto) 6 % (0-9) Eosinophils (%) (Auto) 0 % (0-3) Basophils (%) (Auto) 1 % (0-3) Neutrophils # (Auto) 7.6 x10^3/uL (1.8-7.7) Lymphocytes # (Auto) 2.1 x10^3/uL (1.0-4.8) Monocytes # (Auto) 0.6 x10^3/uL (0.0-1.1) Eosinophils # (Auto) 0.0 x10^3/uL (0.0-0.7) Basophils # (Auto) 0.0 x10^3/uL (0.0-0.2) Sodium Level 134 mmol/L (136-145) Potassium Level 4.3 mmol/L (3.5-5.1) Chloride Level 99 mmol/L (98-107) Carbon Dioxide Level 30 mmol/L (21-32) Anion Gap 5 (6-14) Blood Urea Nitrogen 13 mg/dL (7-20) Creatinine 0.8 mg/dL (0.6-1.0) Estimated GFR (Cockcroft-Gault) 71.3 Glucose Level 146 mg/dL (70-99) Calcium Level 8.2 mg/dL (8.5-10.1) Magnesium Level 2.0 mg/dL (1.8-2.4) Medications Active Scripts Medications Dose Route/Sig Max Daily Dose Days Date Category Lisinopril 10 Mg Tablet 1 Tab PO DAILY 05/04/21 Reported Metformin Hcl 1,000 Mg Tablet 1,000 Mg PO BIDWMEALS 05/04/21 Reported Impression . IMPRESSION: 1. Acute hypoxemic respiratory failure, multifactorial. 2. 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 4. 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 5. Tobacco dependence. 6. Chronic obstructive pulmonary disease./ 55 yrs tobacco use Plan . 1. discussed with interventional radiologist, . we will continue IV heparin; possible insertion of SVC stent and bx of lytic lesion left pelvis 2. will consult onc/XRT 3. 02 titration 4. cont steroid , taper 5. cont abx 6. BD discussed w pt. she agrees to proceed CHIRAG VANEGAS MD May 05, 2021 08:17
[2021-05-05] MEDS: HEPARIN 25,000UTS/250ML PREMIX 250 ML IV PRN (08:23)
[2021-05-05] MEDS: ALBUTEROL SULFATE 2.5 MG/3 ML NEBU. NEB SCH ×4 (08:40→19:55)
[2021-05-05] MEDS: methylPREDNISolone SOD SUCC PF 125 MG/2 ML VIAL. IV SCH (08:49)
[2021-05-05] MEDS: LISINOPRIL 10 MG TABLET PO SCH (08:49)
[2021-05-05] MEDS: INSULIN GLARGINE SYRINGE. SQ SCH ×2 (09:00→21:10)
[2021-05-05 09:58] LABS: % BANDS 2 % (0-9); % METAS 1 % (0-0); % MONOS 3 % (0-10)
[2021-05-05 09:59] LABS: % LYMPHS 12 % (24-48); % SEGS 82 % (35-66); ANISOCYTOSIS PRESENT; PLT ESTIMATE ADEQUATE (ADEQUATE)
--- NOTE | 2021-05-05 10:48 | PDOC ---
[employer] PROGRESS NOTE Date of Service DOS: DATE: 05/05/21 TIME: 10:46 Chief Complaint Chief Complaint Hypertensive urgency Supra vena cava syndrome, DVT. Heparin gtt Large right suprahilar/mediastinal mass concerning for malignancy likely metastatic Tobacco abuse Obesity class I New lung cancer, stage IV with lytic pelvic metastatsis. pending Biopsy of pelvis today History of Present Illness History of Present Illness Patient is a 62-year-old female with past medical history of diabetes, hypertension, 55-year of smoking who comes in with bilateral upper extremity swelling and bilateral lower extremity shortness of breath for the last week. Apparently patient was seen in [place] 1 week ago for pneumonialike symptoms and she was treated with antibiotics. She was also told that they did scan her and they told her that she had a mass in her lung. She did not follow-up with this. Patient did have a Covid positivity in December and she was having shortness of breath at that time. She does denies have any history of CHF or kidney disease. Patient went to [facility] ER to be evaluated because of her upper extremity swelling. CT of the chest was significant for a right suprahilar mass extending into the mediastinum and supra vena cava occlusion with acute appearing thrombus. For this reason patient was sent over for further evaluation of possible thrombectomy with interventional radiology. Pulmonology and oncology are consulted 05/03/2021 No acute events overnight. Patient seen examined bedside. No complaints the patient at this time. Facial plethora is minimal. Continue on heparin drip. Patient's chart, labs, images were reviewed and discussed with RN 05/04/2021 No acute events overnight. Patient seen examined bedside. Sugars are well controlled on current insulin regimen. Continue with heparin drip. Plan for SVC stent tomorrow with IR and possible lung biopsy. Patient's chart, labs, images were reviewed and discussed with RN 05/05, cont current, biopsy today, lung cancer causes of vena cava syndrome Vitals/I&O Vitals/I&O: Vital Signs Date Time Temp Pulse Resp B/P (MAP) Pulse Ox O2 Delivery O2 Flow Rate FiO2 05/05/21 08:49 66 184/72 05/05/21 08:44 Room Air 05/05/21 07:00 96.3 18 97 96.3 I & O 05/04/21 05/04/21 05/05/21 15:00 23:00 07:00 Intake Total 550 ml 400 ml 200 ml Balance 550 ml 400 ml 200 ml Physical Exam General: Alert, Oriented X3, Cooperative Heart: Regular rate Lungs: Clear, Other (b lat diminished) Abdomen: Normal bowel sounds Extremities: No clubbing Skin: No rashes Labs Labs: Laboratory Tests Test 05/04/21 11:25 05/04/21 14:48 05/04/21 16:10 05/04/21 20:51 Glucose (Fingerstick) 183 mg/dL (70-99) 234 mg/dL (70-99) 305 mg/dL (70-99) Heparin Anti-Xa Act, Unfractionated 0.70 IU/mL (0.30-0.70) Test 05/04/21 21:48 05/05/21 04:45 05/05/21 08:22 Heparin Anti-Xa Act, Unfractionated 0.57 IU/mL (0.30-0.70) 0.73 IU/mL (0.30-0.70) White Blood Count 10.3 x10^3/uL (4.0-11.0) Red Blood Count 3.18 x10^6/uL (3.50-5.40) Hemoglobin 9.2 g/dL (12.0-15.5) Hematocrit 28.1 % (36.0-47.0) Mean Corpuscular Volume 88 fL (79-100) Mean Corpuscular Hemoglobin 29 pg (25-35) Mean Corpuscular Hemoglobin Concent 33 g/dL (31-37) Red Cell Distribution Width 17.1 % (11.5-14.5) Platelet Count 348 x10^3/uL (140-400) Neutrophils (%) (Auto) 74 % (31-73) Lymphocytes (%) (Auto) 20 % (24-48) Monocytes (%) (Auto) 6 % (0-9) Eosinophils (%) (Auto) 0 % (0-3) Basophils (%) (Auto) 1 % (0-3) Neutrophils # (Auto) 7.6 x10^3/uL (1.8-7.7) Lymphocytes # (Auto) 2.1 x10^3/uL (1.0-4.8) Monocytes # (Auto) 0.6 x10^3/uL (0.0-1.1) Eosinophils # (Auto) 0.0 x10^3/uL (0.0-0.7) Basophils # (Auto) 0.0 x10^3/uL (0.0-0.2) Segmented Neutrophils % 82 % (35-66) Band Neutrophils % 2 % (0-9) Lymphocytes % 12 % (24-48) Monocytes % 3 % (0-10) Metamyelocytes % 1 % (0-0) Platelet Estimate Adequate (ADEQUATE) Anisocytosis Present Sodium Level 134 mmol/L (136-145) Potassium Level 4.3 mmol/L (3.5-5.1) Chloride Level 99 mmol/L (98-107) Carbon Dioxide Level 30 mmol/L (21-32) Anion Gap 5 (6-14) Blood Urea Nitrogen 13 mg/dL (7-20) Creatinine 0.8 mg/dL (0.6-1.0) Estimated GFR (Cockcroft-Gault) 71.3 Glucose Level 146 mg/dL (70-99) Calcium Level 8.2 mg/dL (8.5-10.1) Magnesium Level 2.0 mg/dL (1.8-2.4) Glucose (Fingerstick) 95 mg/dL (70-99) Comment Review of Relevant I have reviewed the following items dena (where applicable) has been applied. Medications: Current Medications Medications (Trade) Dose Ordered Sig/Rajani Route PRN Reason Start Time Stop Time Status Last Admin Dose Admin Magnesium Sulfate 50 ml @ 25 mls/hr 1X ONCE IV 05/04/21 11:30 05/04/21 13:29 DC 05/04/21 12:01 Methylprednisolone Sodium Succinate (SOLU-Medrol 125MG VIAL) 60 mg DAILY IV 05/05/21 09:00 05/05/21 08:49 Justifications for Admission Other Justification Right lung mass and hypertensive urgency CHRIS BOYCE MD May 05, 2021 10:48
[2021-05-05] MEDS ORDERED: LIDOCAINE WITH 8.4% SOD BICARB 3 ML DISP.SYRIN. ONE (12:42)
[2021-05-05] MEDS ORDERED: fentaNYL PF VIAL 100 MCG/2 ML VIAL ONE (12:53)
[2021-05-05] MEDS ORDERED: NALOXONE 0.4 MG/ML VIAL. ONE (12:54)
--- NOTE | 2021-05-05 13:08 | NUR ---
SS following up with discharge planning. SS reviewed pt chart and discussed with pt RN. Pt is currently on room air. Pt having biopsy of left pelvic lesion today. Pt on IV Solu-Medrol and IV Rocephin. Heparin drip. Pulmonology, Vascular, and Oncology following. SS will continue to follow for discharge planning.
[2021-05-05] MEDS ORDERED: fentaNYL PF VIAL 100 MCG/2 ML VIAL IM ONE (13:45)
[2021-05-05] MEDS ORDERED: LIDOCAINE WITH 8.4% SOD BICARB 3 ML DISP.SYRIN. INJ ONE (13:45)
--- NOTE | 2021-05-05 14:18 | RAD ---
CT-guided bone left iliac crest osteolytic lesion 05/05/2021 Indication: 70-year-old female with large right-sided lung mass and likely lytic metastatic disease i nvolving the pelvis. Comparison study: Discussion: The risks and benefits of the procedure, including but not limited to, bleeding and infec tion were discussed patient. Informed consent was obtained. The patient was brought to the CT scanner and placed in the prone position. A timeout procedure was performed. CT imaging of the pelvis was pe rformed demonstrating a lytic lesion in the left ilium amenable to biopsy . The overlying skin was prepped and draped using maximum sterile barrier technique. 1% lidocaine was a dministered for local anesthesia. Under intermittent CT guidance a needle was advanced into the chacha x overlying the lesion. A core biopsy sample was obtained and placed in formalin. Manual pressure was held. Repeat CT imaging demonstrated no immediate complication. Impression: CT-guided biopsy, lytic lesion left ilium CT DOSING PQRS STATEMENT: One or more of the following individualized dose reduction techniques were utilized for this examinat ion: 1. Automated exposure control 2. Adjustment of the mA and/or kV according to patient size 3. Use of iterative reconstruction technique Electronically signed by: Alec Bennett MD (05/05/2021 2:16 PM) [id number]
[2021-05-05] MEDS: cefTRIAXone IV Push 1 GM VIAL. IVP SCH (23:32)
--- NOTE | 2021-05-06 00:49 | NUR ---
UFH 0.39, no change in heparin gtt. UFH ordered for 0600.
[2021-05-06 02:45] VITALS: BP 119/57
[2021-05-06 06:45] LABS: HEMOGLOBIN 9.2 g/dL (12.0-15.5); RED BLOOD COUNT 3.17 x10^6/uL (3.50-5.40); RED CELL DISTRIBUTION WIDTH 17.1 % (11.5-14.5); WHITE BLOOD COUNT 10.9 x10^3/uL (4.0-11.0)
[2021-05-06 07:00] VITALS: BP 184/72
[2021-05-06] MEDS: INSULIN LISPRO 300 UNITS/3 ML VIAL. SQ SCH ×3 (08:00→17:23)
[2021-05-06] MEDS: ALBUTEROL SULFATE 2.5 MG/3 ML NEBU. NEB SCH ×4 (08:05→19:32)
--- NOTE | 2021-05-06 08:18 | PDOC ---
Provider Note Date of Service: DATE: 05/06/21 TIME: 08:11 Provider Note IR NOTE Left ilium lytic lesion biopsied 05.05.21 Heparin resumed. The bilateral brachiocephalic vein, and SVC clot will make stent placement even more challenging. If anticoagulation fails to resolve clot, then may need to try thrombolysis. Will order contrast enhanced MRI of the brain to exclude intracranial metastasis, given likely large primary lung cancer and osseous metastasis, as this would preclude use of tPA. Justifications for Admission Other Justification Right lung mass and hypertensive urgency OXANA DOMINGUEZ MD May 06, 2021 08:18
[2021-05-06] MEDS: LISINOPRIL 10 MG TABLET PO SCH (08:43)
[2021-05-06] MEDS: methylPREDNISolone SOD SUCC PF 125 MG/2 ML VIAL. IV SCH (08:43)
[2021-05-06] MEDS: INSULIN GLARGINE SYRINGE. SQ SCH ×2 (08:51→21:22)
[2021-05-06] MEDS: HEPARIN 25,000UTS/250ML PREMIX 250 ML IV PRN (10:09)
[2021-05-06 11:02] VITALS: BP 147/61
--- NOTE | 2021-05-06 11:16 | PDOC ---
PULMONARY PROGRESS NOTES DATE: 05/06/21 TIME: 11:14 Subjective DENIES SOA Status post biopsy of left pelvic region Vitals Vital Signs Date Time Temp Pulse Resp B/P (MAP) Pulse Ox O2 Delivery O2 Flow Rate FiO2 05/06/21 11:02 97.9 70 20 147/61 (89) 91 Room Air 97.9 05/05/21 13:37 2.0 ROS: No Nausea General: Alert, Oriented X4 HEENT: Other Lungs: Clear, Other (b lat diminished) Cardiovascular: S1, S2 Abdomen: Soft, Non-tender Neuro Exam: Alert Skin: Warm Labs Laboratory Tests Test 05/04/21 11:25 05/04/21 14:48 05/04/21 16:10 05/04/21 20:51 Glucose (Fingerstick) 183 mg/dL (70-99) 234 mg/dL (70-99) 305 mg/dL (70-99) Heparin Anti-Xa Act, Unfractionated 0.70 IU/mL (0.30-0.70) Test 05/04/21 21:48 05/05/21 04:45 05/05/21 08:22 05/05/21 11:41 Heparin Anti-Xa Act, Unfractionated 0.57 IU/mL (0.30-0.70) 0.73 IU/mL (0.30-0.70) White Blood Count 10.3 x10^3/uL (4.0-11.0) Red Blood Count 3.18 x10^6/uL (3.50-5.40) Hemoglobin 9.2 g/dL (12.0-15.5) Hematocrit 28.1 % (36.0-47.0) Mean Corpuscular Volume 88 fL (79-100) Mean Corpuscular Hemoglobin 29 pg (25-35) Mean Corpuscular Hemoglobin Concent 33 g/dL (31-37) Red Cell Distribution Width 17.1 % (11.5-14.5) Platelet Count 348 x10^3/uL (140-400) Neutrophils (%) (Auto) 74 % (31-73) Lymphocytes (%) (Auto) 20 % (24-48) Monocytes (%) (Auto) 6 % (0-9) Eosinophils (%) (Auto) 0 % (0-3) Basophils (%) (Auto) 1 % (0-3) Neutrophils # (Auto) 7.6 x10^3/uL (1.8-7.7) Lymphocytes # (Auto) 2.1 x10^3/uL (1.0-4.8) Monocytes # (Auto) 0.6 x10^3/uL (0.0-1.1) Eosinophils # (Auto) 0.0 x10^3/uL (0.0-0.7) Basophils # (Auto) 0.0 x10^3/uL (0.0-0.2) Segmented Neutrophils % 82 % (35-66) Band Neutrophils % 2 % (0-9) Lymphocytes % 12 % (24-48) Monocytes % 3 % (0-10) Metamyelocytes % 1 % (0-0) Platelet Estimate Adequate (ADEQUATE) Anisocytosis Present Sodium Level 134 mmol/L (136-145) Potassium Level 4.3 mmol/L (3.5-5.1) Chloride Level 99 mmol/L (98-107) Carbon Dioxide Level 30 mmol/L (21-32) Anion Gap 5 (6-14) Blood Urea Nitrogen 13 mg/dL (7-20) Creatinine 0.8 mg/dL (0.6-1.0) Estimated GFR (Cockcroft-Gault) 71.3 Glucose Level 146 mg/dL (70-99) Calcium Level 8.2 mg/dL (8.5-10.1) Magnesium Level 2.0 mg/dL (1.8-2.4) Glucose (Fingerstick) 95 mg/dL (70-99) 109 mg/dL (70-99) Test 05/05/21 17:05 05/05/21 20:49 05/06/21 00:15 05/06/21 06:00 Glucose (Fingerstick) 250 mg/dL (70-99) 223 mg/dL (70-99) Heparin Anti-Xa Act, Unfractionated 0.39 IU/mL (0.30-0.70) 0.47 IU/mL (0.30-0.70) White Blood Count 10.9 x10^3/uL (4.0-11.0) Red Blood Count 3.17 x10^6/uL (3.50-5.40) Hemoglobin 9.2 g/dL (12.0-15.5) Hematocrit 28.0 % (36.0-47.0) Mean Corpuscular Volume 89 fL (79-100) Mean Corpuscular Hemoglobin 29 pg (25-35) Mean Corpuscular Hemoglobin Concent 33 g/dL (31-37) Red Cell Distribution Width 17.1 % (11.5-14.5) Platelet Count 334 x10^3/uL (140-400) Test 05/06/21 07:50 Glucose (Fingerstick) 72 mg/dL (70-99) Laboratory Tests Test 05/05/21 11:41 05/05/21 17:05 05/05/21 20:49 05/06/21 00:15 Glucose (Fingerstick) 109 mg/dL (70-99) 250 mg/dL (70-99) 223 mg/dL (70-99) Heparin Anti-Xa Act, Unfractionated 0.39 IU/mL (0.30-0.70) Test 05/06/21 06:00 05/06/21 07:50 White Blood Count 10.9 x10^3/uL (4.0-11.0) Red Blood Count 3.17 x10^6/uL (3.50-5.40) Hemoglobin 9.2 g/dL (12.0-15.5) Hematocrit 28.0 % (36.0-47.0) Mean Corpuscular Volume 89 fL (79-100) Mean Corpuscular Hemoglobin 29 pg (25-35) Mean Corpuscular Hemoglobin Concent 33 g/dL (31-37) Red Cell Distribution Width 17.1 % (11.5-14.5) Platelet Count 334 x10^3/uL (140-400) Heparin Anti-Xa Act, Unfractionated 0.47 IU/mL (0.30-0.70) Glucose (Fingerstick) 72 mg/dL (70-99) Medications Active Scripts Medications Dose Route/Sig Max Daily Dose Days Date Category Lisinopril 10 Mg Tablet 1 Tab PO DAILY 05/04/21 Reported Metformin Hcl 1,000 Mg Tablet 1,000 Mg PO BIDWMEALS 05/04/21 Reported Impression . IMPRESSION: 1. Acute hypoxemic respiratory failure, multifactorial. 2. 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 4. 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 5. Tobacco dependence. 6. Chronic obstructive pulmonary disease./ 55 yrs tobacco use Plan . 1. discussed with interventional radiologist, . Status post biopsy of the lytic lesion from the left pelvis. Will make a decision about stenting soon. we will continue IV heparin for now 2. will consult radiation oncology. Appreciate medical oncology recommendations 3. 02 titration 4. cont steroid , taper 5. cont abx 6. BD CHIRAG VANEGAS MD May 06, 2021 11:16
[2021-05-06] MEDS ORDERED: GADOTERATE 7.5 MMOL/15ML VIAL. IVP ONE (11:30)
--- NOTE | 2021-05-06 12:01 | NUR ---
SS following up with discharge planning. SS reviewed pt chart and discussed with pt RN. Pt is currently on room air. Pt on IV Solu-Medrol and IV Rocephin. Heparin drip. Brain MRI today. PT/OT ordered. Oncology, Pulmonology, and Vascular following. Referral received for home with home healthcare. SS will continue to follow for discharge planning.
[2021-05-06 15:00] VITALS: BP 163/71
--- NOTE | 2021-05-06 15:22 | PDOC ---
[employer] PROGRESS NOTE Date of Service DOS: DATE: 05/06/21 TIME: 15:22 Chief Complaint Chief Complaint Hypertensive urgency Supra vena cava syndrome, DVT. Heparin gtt Large right suprahilar/mediastinal mass concerning for malignancy likely metastatic Tobacco abuse Obesity class I New lung cancer, stage IV with lytic pelvic metastatsis. pending Biopsy of pelvis today History of Present Illness History of Present Illness Patient is a 62-year-old female with past medical history of diabetes, hypertension, 55-year of smoking who comes in with bilateral upper extremity swelling and bilateral lower extremity shortness of breath for the last week. Apparently patient was seen in [place] 1 week ago for pneumonialike symptoms and she was treated with antibiotics. She was also told that they did scan her and they told her that she had a mass in her lung. She did not follow-up with this. Patient did have a Covid positivity in December and she was having shortness of breath at that time. She does denies have any history of CHF or kidney disease. Patient went to [facility] ER to be evaluated because of her upper extremity swelling. CT of the chest was significant for a right suprahilar mass extending into the mediastinum and supra vena cava occlusion with acute appearing thrombus. For this reason patient was sent over for further evaluation of possible thrombectomy with interventional radiology. Pulmonology and oncology are consulted 05/03/2021 No acute events overnight. Patient seen examined bedside. No complaints the patient at this time. Facial plethora is minimal. Continue on heparin drip. Patient's chart, labs, images were reviewed and discussed with RN 05/04/2021 No acute events overnight. Patient seen examined bedside. Sugars are well controlled on current insulin regimen. Continue with heparin drip. Plan for SVC stent tomorrow with IR and possible lung biopsy. Patient's chart, labs, images were reviewed and discussed with RN 05/05, cont current, biopsy today, lung cancer causes of vena cava syndrome Vitals/I&O Vitals/I&O: Vital Signs Date Time Temp Pulse Resp B/P (MAP) Pulse Ox O2 Delivery O2 Flow Rate FiO2 05/06/21 15:00 98.2 74 20 163/71 (101) 96 Room Air 98.2 05/05/21 13:37 2.0 I & O 05/05/21 05/05/21 05/06/21 15:00 23:00 07:00 Intake Total 0 ml 320 ml 300 ml Balance 0 ml 320 ml 300 ml Physical Exam General: Alert, Oriented X3, Cooperative Heart: Regular rate Lungs: Clear, Other (b lat diminished) Abdomen: Normal bowel sounds Extremities: No clubbing Skin: No rashes Labs Labs: Laboratory Tests Test 05/05/21 17:05 05/05/21 20:49 05/06/21 00:15 05/06/21 06:00 Glucose (Fingerstick) 250 mg/dL (70-99) 223 mg/dL (70-99) Heparin Anti-Xa Act, Unfractionated 0.39 IU/mL (0.30-0.70) 0.47 IU/mL (0.30-0.70) White Blood Count 10.9 x10^3/uL (4.0-11.0) Red Blood Count 3.17 x10^6/uL (3.50-5.40) Hemoglobin 9.2 g/dL (12.0-15.5) Hematocrit 28.0 % (36.0-47.0) Mean Corpuscular Volume 89 fL (79-100) Mean Corpuscular Hemoglobin 29 pg (25-35) Mean Corpuscular Hemoglobin Concent 33 g/dL (31-37) Red Cell Distribution Width 17.1 % (11.5-14.5) Platelet Count 334 x10^3/uL (140-400) Test 05/06/21 07:50 05/06/21 11:23 Glucose (Fingerstick) 72 mg/dL (70-99) 102 mg/dL (70-99) Comment Review of Relevant I have reviewed the following items dena (where applicable) has been applied. Justifications for Admission Other Justification Right lung mass and hypertensive urgency CHRIS BOYCE MD May 06, 2021 15:22
[2021-05-06] MEDS ORDERED: IOHEXOL 300 MG/ML 100ML VIAL. IV ONE (15:30)
[2021-05-06] MEDS ORDERED: CONTRAST GIVEN. MC PRN (15:45)
--- NOTE | 2021-05-06 17:45 | RAD ---
CT HEAD WITHOUT AND WITH IV CONTRAST Date: 05/06/2021 3:27 PM Clinical Indication: Metastatic lung cancer, poorly diff. Headache. Eval for intracranial mets Comparison: None. Technique: 5 mm axial tomographic images were obtained of the head with and without contrast. 70 cc Omnipaque 300 contrast was administered intravenously during the exam. These were viewed on brain an d bone windows. One or more of the following dose reduction techniques were utilized: Automated expos ure control (AEC), Adjustment of mA and/or kV according to patient size, Use of iterative reconstruct ion technique such as ASiR, CT scan done according to ALARA and image gently/image wisely Findings: The brain parenchyma is normal in attenuation. No intra- or extra-axial mass or fluid collection. No acute hemorrhage. The ventricles are normal in size, shape, and morphology. The العلي-white matter veda ction is normal. The subarachnoid cisterns are patent. No abnormal enhancement. The visualized paranasal sinuses are normal. The visualized portions of the orbits and globes are no rmal. The mastoid air cells are clear. The electrical/instrument technician topogram shows no lytic lesion or fracture. Impression: No enhancing lesions or focal edema to suggest intracranial metastatic disease. If clinical concern p ersists, MRI would provide for greater sensitivity in evaluating for tiny metastatic lesions. Electronically signed by: Ashwin Arias MD (05/06/2021 5:43 PM) [id number]
[2021-05-06 19:50] VITALS: BP 156/62
[2021-05-06 23:15] VITALS: BP 147/61
[2021-05-06] MEDS: cefTRIAXone IV Push 1 GM VIAL. IVP SCH (23:57)
[2021-05-07] VITALS (19 sets, daily range): BP systolic 137–226; BP diastolic 59–94
[2021-05-07] MEDS: HEPARIN 25,000UTS/250ML PREMIX 250 ML IV PRN ×2 (02:32→23:16)
[2021-05-07] MEDS: ALBUTEROL SULFATE 2.5 MG/3 ML NEBU. NEB SCH ×4 (07:27→20:12)
--- NOTE | 2021-05-07 07:30 | PDOC ---
PULMONARY PROGRESS NOTES DATE: 05/07/21 TIME: 07:24 Subjective Pt. is resting on NC oxygen no increased SOA or cough remains on heparin gtt no overnight concerns Vitals Vital Signs Date Time Temp Pulse Resp B/P (MAP) Pulse Ox O2 Delivery O2 Flow Rate FiO2 05/07/21 03:00 98.4 63 20 142/64 (90) 98 Room Air 98.4 05/06/21 20:00 2.0 ROS: No Nausea, No Chest Pain, No Abdominal Pain, No Increase Cough General: Alert, Oriented X4 HEENT: Other Lungs: Clear, Other (b lat diminished) Cardiovascular: S1, S2 Abdomen: Soft, Non-tender Neuro Exam: Alert Skin: Warm Labs Laboratory Tests Test 05/05/21 08:22 05/05/21 11:41 05/05/21 17:05 05/05/21 20:49 Glucose (Fingerstick) 95 mg/dL (70-99) 109 mg/dL (70-99) 250 mg/dL (70-99) 223 mg/dL (70-99) Test 05/06/21 00:15 05/06/21 06:00 05/06/21 07:50 05/06/21 11:23 Heparin Anti-Xa Act, Unfractionated 0.39 IU/mL (0.30-0.70) 0.47 IU/mL (0.30-0.70) White Blood Count 10.9 x10^3/uL (4.0-11.0) Red Blood Count 3.17 x10^6/uL (3.50-5.40) Hemoglobin 9.2 g/dL (12.0-15.5) Hematocrit 28.0 % (36.0-47.0) Mean Corpuscular Volume 89 fL (79-100) Mean Corpuscular Hemoglobin 29 pg (25-35) Mean Corpuscular Hemoglobin Concent 33 g/dL (31-37) Red Cell Distribution Width 17.1 % (11.5-14.5) Platelet Count 334 x10^3/uL (140-400) Glucose (Fingerstick) 72 mg/dL (70-99) 102 mg/dL (70-99) Test 05/06/21 16:35 05/06/21 20:59 05/07/21 04:50 Glucose (Fingerstick) 166 mg/dL (70-99) 173 mg/dL (70-99) Heparin Anti-Xa Act, Unfractionated 0.53 IU/mL (0.30-0.70) Laboratory Tests Test 05/06/21 07:50 05/06/21 11:23 05/06/21 16:35 05/06/21 20:59 Glucose (Fingerstick) 72 mg/dL (70-99) 102 mg/dL (70-99) 166 mg/dL (70-99) 173 mg/dL (70-99) Test 05/07/21 04:50 Heparin Anti-Xa Act, Unfractionated 0.53 IU/mL (0.30-0.70) Medications Active Scripts Medications Dose Route/Sig Max Daily Dose Days Date Category Lisinopril 10 Mg Tablet 1 Tab PO DAILY 05/04/21 Reported Metformin Hcl 1,000 Mg Tablet 1,000 Mg PO BIDWMEALS 05/04/21 Reported Impression . IMPRESSION: 1. Acute hypoxemic respiratory failure, multifactorial. 2. 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 4. 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 Tobacco dependence. 6. Chronic obstructive pulmonary disease./ 55 yrs tobacco use Plan . PLAN Status post biopsy of the lytic lesion from the left pelvis-- pathology positive for non-small cell- special stains pending IR following for possible stent--case is complex--continue IV heparin for now Follow radiation oncology and medical oncology recommendations CT head negative for mets, however MRI is recommended nebs Continue steroids, will slow taper DVT/GI PPX D/W CHIRAG MARQUIS MD May 07, 2021 07:30
[2021-05-07] MEDS: INSULIN LISPRO 300 UNITS/3 ML VIAL. SQ SCH ×3 (08:00→17:00)
[2021-05-07] MEDS ORDERED: DEXTROSE 50% 25 GM / 50ML DISP.SYRIN. IV PRN (08:45)
[2021-05-07] MEDS: INSULIN GLARGINE SYRINGE. SQ SCH (09:00)
[2021-05-07] MEDS: methylPREDNISolone SOD SUCC PF 125 MG/2 ML VIAL. IV SCH (09:42)
--- NOTE | 2021-05-07 09:54 | PDOC ---
[employer] PROGRESS NOTE Date of Service DOS: DATE: 05/07/21 TIME: 09:53 Chief Complaint Chief Complaint Hypertensive urgency Supra vena cava syndrome, DVT. Heparin gtt Large right suprahilar/mediastinal mass concerning for malignancy likely metastatic Tobacco abuse Obesity class I New lung cancer, stage IV with lytic pelvic metastatsis. pending Biopsy of pelvis today History of Present Illness History of Present Illness 05/07 stent planned for SVC today hypoglycemia, will stop the lantus insulin, still on steriods, will taper still on heparin gtt, may be able to transition to PO cont current plan home health at [place] Patient is a 62-year-old female with past medical history of diabetes, hypertension, 55-year of smoking who comes in with bilateral upper extremity sw elling and bilateral lower extremity shortness of breath for the last week. Apparently patient was seen in [place] 1 week ago for pneumonialike symptoms and she was treated with antibiotics. She was also told that they did scan her and they told her that she had a mass in her lung. She did not follow-up with this. Patient did have a Covid positivity in December and she was having shortness of breath at that time. She does denies have any history of CHF or kidney disease. Patient went to [facility] ER to be evaluated because of her upper extremity swelling. CT of the chest was significant for a right suprahilar mass extending into the mediastinum and supra vena cava occlusion with acute appearing thrombus. For this reason patient was sent over for further evaluation of possible thrombectomy with interventional radiology. Pulmonology and oncology are consulted 05/03/2021 No acute events overnight. Patient seen examined bedside. No complaints the patient at this time. Facial plethora is minimal. Continue on heparin drip. Patient's chart, labs, images were reviewed and discussed with RN 05/04/2021 No acute events overnight. Patient seen examined bedside. Sugars are well controlled on current insulin regimen. Continue with heparin drip. Plan for SVC stent tomorrow with IR and possible lung biopsy. Patient's chart, labs, images were reviewed and discussed with RN 05/05, cont current, biopsy today, lung cancer causes of vena cava syndrome Vitals/I&O Vitals/I&O: Vital Signs Date Time Temp Pulse Resp B/P (MAP) Pulse Ox O2 Delivery O2 Flow Rate FiO2 05/07/21 07:28 95 Room Air 05/07/21 07:00 97.7 64 16 154/59 (90) 97.7 05/06/21 20:00 2.0 I & O 05/06/21 05/06/21 05/07/21 14:59 22:59 06:59 Intake Total 720 ml 300 ml 502 ml Balance 720 ml 300 ml 502 ml Physical Exam General: Alert, Oriented X3, Cooperative Heart: Regular rate Lungs: Clear, Other (b lat diminished) Abdomen: Normal bowel sounds Extremities: No clubbing Skin: No rashes Labs Labs: Laboratory Tests Test 05/06/21 11:23 05/06/21 16:35 05/06/21 20:59 05/07/21 04:50 Glucose (Fingerstick) 102 mg/dL (70-99) 166 mg/dL (70-99) 173 mg/dL (70-99) Heparin Anti-Xa Act, Unfractionated 0.53 IU/mL (0.30-0.70) Test 05/07/21 08:08 05/07/21 09:34 Glucose (Fingerstick) 53 mg/dL (70-99) 91 mg/dL (70-99) Comment Review of Relevant I have reviewed the following items dena (where applicable) has been applied. Medications: Current Medications Medications (Trade) Dose Ordered Sig/Rajani Route PRN Reason Start Time Stop Time Status Last Admin Dose Admin Iohexol (Omnipaque 300 Mg/ml) 70 ml 1X ONCE IV 05/06/21 15:30 05/06/21 15:32 DC 05/06/21 15:37 Justifications for Admission Other Justification Right lung mass and hypertensive urgency CHRIS BOYCE MD May 07, 2021 09:54
--- NOTE | 2021-05-07 10:55 | PDOC2 ---
CONSULT Date of Consult Date of Consult DATE: 05/07/21 TIME: 10:29 Reason for Consult Reason for Consult: Superior vena cava syndrome Identification/Chief Complaint Chief Complaint swelling of both arms and face Source Source: Chart review, Patient History of Present Illness Reason for Visit: Mrs. Boo is a 70-year-old smoker who presented with hemoptysis in December, when she was diagnosed with Covid. She had mild Covid symptoms. No imaging was done in December. Follow up CT chest on 04/16/2021 showed 8 cm right suprahilar mass, extending into the mediastinum, and encasing bronchovascular structures. In the upper abdomen were 1.9 cm mesenteric and periaortic aortocaval lymph node. She presented to [facility] with bilateral upper extremity and facial swelling, which started a week ago when she was in [place] for a wedding. She reports a 30 pound weight loss in 3 weeks. She was transferred to [place]. 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 There was a small right pleural effusion. The right upper lobe mass measured 7 cm. No liver lesions. In the abdomen and pelvis were lymphadenopathy. There was also 5.2 cm lytic mass in the left iliac wing. On 05/05/2021, CT-guided biopsy of left pelvic osteolytic lesion showed poorly differentiated adenocarcinoma of lung origin. She reports no significant back pain, but she does take occasional muscle relaxant. No weakness in her legs. No headache or double vision. Past Medical History Cardiovascular: HTN, Other (tobaccoism) Endocrine: Diabetes Past Surgical History Past Surgical History: No pertinent history Family History Family History: Cancer (Mother with kidney cancer, father with lung cancer, sister with pancreatic cancer.) Social History # pack years (50+) ALCOHOL: none Lives: with Family (In [place].) Current Medications Current Medications Current Medications Acetaminophen (Tylenol) 650 mg PRN Q4HRS PRN PO TEMP OVER 100.4F OR MILD PAIN; Start 05/01/21 at 21:15; Stop 05/02/21 at 16:19; Status DC Magnesium Sulfate 50 ml @ 25 mls/hr 1X ONCE IV Last administered on 05/01/21at 22:37; Start 05/01/21 at 23:00; Stop 05/02/21 at 00:59; Status DC Ceftriaxone Sodium (Rocephin) 1 gm Q24H IVP Last administered on 05/06/21at 23:57; Start 05/01/21 at 23:00 Lisinopril (Prinivil) 10 mg DAILY PO Last administered on 05/06/21at 08:43; Start 05/02/21 at 09:00 Albuterol Sulfate (Ventolin Neb Soln) 2.5 mg RTQID NEB Last administered on 05/07/21at 07:27; Start 05/02/21 at 08:00 Albuterol Sulfate (Ventolin Neb Soln) 2.5 mg PRN Q4HRS PRN NEB SHORTNESS OF BREATH Last administered on 05/01/21at 22:06; Start 05/01/21 at 21:15 Insulin Human Lispro (HumaLOG) 0-7 UNITS TIDWMEALS SQ ; Start 05/02/21 at 08:00; Stop 05/02/21 at 17:36; Status DC Dextrose (Dextrose 50%-Water Syringe) 12.5 gm PRN Q15MIN PRN IV SEE COMMENTS; Start 05/01/21 at 21:15; Stop 05/02/21 at 16:20; Status DC Guaifenesin (Robitussin Dm) 10 ml PRN Q6HRS PRN PO COUGH; Start 05/01/21 at 21:15 Heparin Sodium/ Dextrose 250 ml @ 14 mls/hr CONT PRN IV PER PROTOCOL Last administered on 05/07/21at 02:32; Start 05/02/21 at 00:15 Heparin Sodium (Porcine) (Heparin Sodium) 2,650 unit PRN Q6HRS PRN IV FOR UFH LEVEL LESS THAN 0.2 Last administered on 05/02/21at 10:48; Start 05/02/21 at 00:15 Heparin Sodium (Porcine) (Heparin Sodium) 1,300 unit PRN Q6HRS PRN IV FOR UFH LEVEL 0.2 - 0.29 Last administered on 05/03/21at 11:24; Start 05/02/21 at 00:15 Info (Anti-Coagulation Monitoring By Pharmacy) 1 each PRN DAILY PRN MC PER PROTOCOL Last administered on 05/02/21at 08:06; Start 05/02/21 at 00:30 Methylprednisolone Sodium Succinate (SOLU-Medrol 125MG VIAL) 125 mg DAILY IV Last administered on 05/04/21at 09:21; Start 05/03/21 at 09:00; Stop 05/05/21 at 08:13; Status DC Methylprednisolone Sodium Succinate (SOLU-Medrol 125MG VIAL) 125 mg 1X ONCE IV Last administered on 05/02/21at 12:26; Start 05/02/21 at 12:00; Stop 05/02/21 at 12:03; Status DC Amlodipine Besylate (Norvasc) 5 mg QHS PO Last administered on 05/06/21at 21:22; Start 05/02/21 at 21:00 Losartan Potassium (Cozaar) 50 mg QHS PO ; Start 05/02/21 at 21:00; Status Cancel Labetalol HCl (Normodyne Iv Push) 20 mg PRN Q2HR PRN IVP HYPERTENSION; Start 05/02/21 at 16:15 Sennosides (Senna) 17.2 mg PRN BID PRN PO CONSTIPATION; Start 05/02/21 at 16:15 Docusate Sodium (Colace) 100 mg PRN DAILY PRN PO HARD STOOLS; Start 05/02/21 at 16:15 Ondansetron HCl (Zofran) 4 mg PRN Q6HRS PRN IVP NAUSEA/VOMITING (1st Choice); Start 05/02/21 at 16:15 Insulin Human Lispro (HumaLOG) 0-9 UNITS TIDWMEALS SQ Last administered on 05/06/21at 17:23; Start 05/02/21 at 17:00 Dextrose (Dextrose 50%-Water Syringe) 12.5 gm PRN Q15MIN PRN IV SEE COMMENTS; Start 05/02/21 at 16:15 Acetaminophen (Tylenol) 650 mg PRN Q4HRS PRN PO TEMP OVER 100.4F OR MILD PAIN; Start 05/02/21 at 16:15 Lorazepam (Ativan) 0.5 mg PRN Q6HRS PRN PO ANXIETY / AGITATION; Start 05/02/21 at 16:15 Lorazepam (Ativan Inj) 0.25 mg PRN Q4HRS PRN IV ANXIETY / AGITATION; Start 05/02/21 at 16:15 Morphine Sulfate (Morphine Sulfate) 1 mg PRN Q1HR PRN IV PAIN-SEE COMMENTS; Start 05/02/21 at 16:15 Morphine Sulfate (Morphine Sulfate) 2 mg PRN Q2HR PRN IVP SEVERE PAIN 7-10; Start 05/02/21 at 16:15; Stop 05/03/21 at 16:14; Status DC Prochlorperazine Edisylate (Compazine) 10 mg PRN Q6HRS PRN IV NAUSEA/VOMITING (2nd Choice); Start 05/02/21 at 16:15 Zolpidem Tartrate (Ambien) 2.5 mg PRN QHS PRN PO INSOMNIA; Start 05/02/21 at 16:15 Insulin Glargine (Lantus Syringe) 10 unit BID SQ Last administered on 05/06/21at 21:22; Start 05/03/21 at 21:00; Stop 05/07/21 at 09:52; Status DC Magnesium Sulfate 50 ml @ 25 mls/hr 1X ONCE IV Last administered on 05/04/21at 12:01; Start 05/04/21 at 11:30; Stop 05/04/21 at 13:29; Status DC Methylprednisolone Sodium Succinate (SOLU-Medrol 125MG VIAL) 60 mg DAILY IV Last administered on 05/07/21at 09:42; Start 05/05/21 at 09:00 Lidocaine HCl (Buffered Lidocaine 1%) 3 ml STK-MED ONCE .ROUTE ; Start 05/05/21 at 12:42; Stop 05/05/21 at 12:42; Status DC Fentanyl Citrate (Fentanyl 2ml Vial) 100 mcg STK-MED ONCE .ROUTE ; Start 05/05/21 at 12:53; Stop 05/05/21 at 12:53; Status DC Naloxone HCl (Narcan) 0.4 mg STK-MED ONCE .ROUTE ; Start 05/05/21 at 12:54; Stop 05/05/21 at 12:54; Status DC Lidocaine HCl (Buffered Lidocaine 1%) 3 ml 1X ONCE INJ Last administered on 05/05/21at 13:36; Start 05/05/21 at 13:45; Stop 05/05/21 at 13:46; Status DC Fentanyl Citrate (Fentanyl 2ml Vial) 100 mcg 1X ONCE IM Last administered on 05/05/21at 13:37; Start 05/05/21 at 13:45; Stop 05/05/21 at 13:46; Status DC Gadoterate Meglumine (Clariscan) 19 ml 1X ONCE IVP ; Start 05/06/21 at 11:30; Stop 05/06/21 at 11:32; Status DC Iohexol (Omnipaque 300 Mg/ml) 70 ml 1X ONCE IV Last administered on 05/06/21at 15:37; Start 05/06/21 at 15:30; Stop 05/06/21 at 15:32; Status DC Info (CONTRAST GIVEN -- Rx MONITORING) 1 each PRN DAILY PRN MC SEE COMMENTS; Start 05/06/21 at 15:45; Stop 05/08/21 at 15:44 Dextrose (Dextrose 50%-Water Syringe) 12.5 gm PRN Q15MIN PRN IV SEE COMMENTS; Start 05/07/21 at 08:45 Active Scripts Active Reported Lisinopril 10 Mg Tablet 1 Tab PO DAILY Metformin Hcl 1,000 Mg Tablet 1,000 Mg PO BIDWMEALS Allergies Allergies: Coded Allergies: Anesthetics - Elsi Type- Parabens (Verified Allergy, Severe, CARDIAC ARREST, 05/01/21) niacin (Verified Allergy, Intermediate, 05/01/21) skin turns red and hives codeine (Verified Adverse Reaction, Intermediate, MAKES PATIENT CRY, 05/05/21) ROS Respiratory: YES: Cough, Hemoptysis, Shortness of breath Physical Exam General: Alert, Oriented X3, Cooperative, No acute distress HEENT: PERRLA, EOMI, Other (Facial swelling.) Lungs: Normal air movement Heart: Normal S1, Normal S2, No murmurs Abdomen: Normal bowel sounds, Soft, No tenderness Extremities: Other (Significant swelling of both arms.) Skin: No significant lesion Neuro: Normal speech, Strength at 5/5 X4 ext, Normal tone, Sensation intact, Cranial nerves 3-12 NL MUSCULOSKELETAL: Other (Minimal point tenderness in the low back.) Vitals VITALS Vital Signs Date Time Temp Pulse Resp B/P (MAP) Pulse Ox O2 Delivery O2 Flow Rate FiO2 05/07/21 07:28 95 Room Air 05/07/21 07:00 97.7 64 16 154/59 (90) 97.7 05/06/21 20:00 2.0 Labs Labs Laboratory Tests Test 05/05/21 11:41 05/05/21 17:05 05/05/21 20:49 05/06/21 00:15 Glucose (Fingerstick) 109 mg/dL (70-99) 250 mg/dL (70-99) 223 mg/dL (70-99) Heparin Anti-Xa Act, Unfractionated 0.39 IU/mL (0.30-0.70) Test 05/06/21 06:00 05/06/21 07:50 05/06/21 11:23 05/06/21 16:35 White Blood Count 10.9 x10^3/uL (4.0-11.0) Red Blood Count 3.17 x10^6/uL (3.50-5.40) Hemoglobin 9.2 g/dL (12.0-15.5) Hematocrit 28.0 % (36.0-47.0) Mean Corpuscular Volume 89 fL (79-100) Mean Corpuscular Hemoglobin 29 pg (25-35) Mean Corpuscular Hemoglobin Concent 33 g/dL (31-37) Red Cell Distribution Width 17.1 % (11.5-14.5) Platelet Count 334 x10^3/uL (140-400) Heparin Anti-Xa Act, Unfractionated 0.47 IU/mL (0.30-0.70) Glucose (Fingerstick) 72 mg/dL (70-99) 102 mg/dL (70-99) 166 mg/dL (70-99) Test 05/06/21 20:59 05/07/21 04:50 05/07/21 08:08 05/07/21 09:34 Glucose (Fingerstick) 173 mg/dL (70-99) 53 mg/dL (70-99) 91 mg/dL (70-99) Heparin Anti-Xa Act, Unfractionated 0.53 IU/mL (0.30-0.70) Laboratory Tests Test 05/06/21 11:23 05/06/21 16:35 05/06/21 20:59 05/07/21 04:50 Glucose (Fingerstick) 102 mg/dL (70-99) 166 mg/dL (70-99) 173 mg/dL (70-99) Heparin Anti-Xa Act, Unfractionated 0.53 IU/mL (0.30-0.70) Test 05/07/21 08:08 05/07/21 09:34 Glucose (Fingerstick) 53 mg/dL (70-99) 91 mg/dL (70-99) Assessment/Plan Assessment/Plan 70-year-old female with metastatic non-small cell lung cancer, stage IV, with tumor induced superior vena cava syndrome. Plan We discussed palliative radiotherapy to the right upper lobe tumor to address her SVC syndrome. Procedure involves a planning CT followed by 10 daily treatments. The side effects, including the acute and late side effects, were discussed with the patient. She has minimal back pain symptom. So we will hold off palliative radiotherapy to the pelvic metastasis for now. We discussed briefly the main treatment, which would be systemic therapy either with chemotherapy or immunotherapy. Patient understood. She would like to proceed with palliative radiotherapy to treat SVC syndrome. Planning CT will be done this morning. KEI MATUTE MD May 07, 2021 10:55
--- NOTE | 2021-05-07 12:36 | NUR ---
SS following up with discharge planning. SS reviewed pt chart and discussed with pt RN. Pt is currently on room air. Pt on IV Solu-Medrol and IV Rocephin. Heparin drip. SVC placement today. PT/OT recommended home. Home Healthcare requested with no preference of company. [facility], ; fax [phone]. SS will continue to follow for discharge planning.
[2021-05-07] MEDS ORDERED: POTASSIUM CL 20MEQ D5-0.45NACL 1,000 ML IV ONE (13:00)
[2021-05-07] MEDS ORDERED: LIDOCAINE WITH 8.4% SOD BICARB 3 ML DISP.SYRIN. ONE (13:49)
[2021-05-07] MEDS ORDERED: IODIXANOL 320 MG/ML 100 ML VIAL. ONE ×2 (13:49→15:25)
[2021-05-07] MEDS ORDERED: MIDAZOLAM HCL/PF 2 MG/2 ML VIAL. ONE (13:52)
[2021-05-07] MEDS ORDERED: fentaNYL PF VIAL 100 MCG/2 ML VIAL ONE (13:52)
[2021-05-07] MEDS ORDERED: HEPARIN for IV BOLUS 10,000 UNIT/10 ML VIAL. ONE (13:52)
[2021-05-07] MEDS ORDERED: CONTRAST GIVEN. MC PRN (14:45)
[2021-05-07] MEDS ORDERED: MIDAZOLAM HCL/PF 2 MG/2 ML VIAL. IV ONE (14:45)
[2021-05-07] MEDS ORDERED: LIDOCAINE WITH 8.4% SOD BICARB 3 ML DISP.SYRIN. IJ ONE (14:45)
[2021-05-07] MEDS ORDERED: HEPARIN for IV BOLUS 10,000 UNIT/10 ML VIAL. IV ONE (14:45)
[2021-05-07] MEDS ORDERED: fentaNYL PF VIAL 100 MCG/2 ML VIAL IV ONE (14:45)
[2021-05-07] MEDS ORDERED: IODIXANOL 320 MG/ML 100 ML VIAL. IART ONE (14:45)
--- NOTE | 2021-05-07 16:12 | PATHOLOGY ---
[facility] Accession Number: [id number] . 01 Material submitted: . pelvic bone - LEFT PELVIC BONE LESION BIOPSY. Modifiers: left . 01 Clinical history: . LUNG MASS WITH BONE METS L PELVIC BONE LESION . 02 Diagnosis: Segment of bone, left pelvic bone lesion biopsy: - METASTATIC ADENOCARCINOMA, POORLY DIFFERENTIATED. SEE COMMENT. (JPM:mason/pit; 05/06/2021) S 05/07/2021 0853 Local . 02 Comment: Sections of the left pelvic bone lesion biopsy reveal a segment of bone showing extensive areas of replacement by a malignant epithelial neoplasm. The malignant cells have a solid nested appearance and are associated with a reactive desmoplastic stroma. The tumor cells are of medium to large size and have moderate amounts of pale eosinophilic cytoplasm. The tumor cells possess enlarged, rounded to ovoid moderately pleomorphic nuclei containing prominent nucleoli. The tumor shows no evidence of keratinization or obvious acinar formation. However, there are scattered tumor cells which appear to contain intracytoplasmic mucin vacuoles. A panel of immunoperoxidase stains is performed on A1 and yields the following results: . Cytokeratin 7: Tumor cells positive Cytokeratin 20: Tumor cells negative TTF-1: Tumor cells positive P40: Tumor cells negative Napsin A: Tumor cells positive LORAINE-3: Occasional tumor cells positive CDX2: Tumor cells negative PAX-8: Tumor cells negative . The morphologic and immunophenotypic findings are supportive of the diagnosis of metastatic poorly differentiated adenocarcinoma and are consistent with lung origin. The case is also examined by Dr. Barger, who concurs with the diagnosis on 05/07/21. The results are reported to Dr. Neri on 05/06/2021 at 1:06 pm. . (JPM:pit; 05/07/2021) . Special stains performed: Immunoperoxidase stains for CK7, CK20, TTF-1, p40, napsin A, LORAINE-3, CDX2 and PAX-8 . . . . . 02 Electronically signed: . Kory Pa MD, Pathologist NPI- [id number] . 01 Gross description: . The specimen is received in formalin, labeled "Deysi Boo L pelvic bone lesion" and consists of a pink-burgess and hemorrhagic needle core biopsy (3.1 cm in length by 0.2 cm in diameter) which is rubbery and focally softened. The specimen is submitted entirely in A1 following brief treatment in immunocal. ([place]; 05/05/2021) DKA/DKA 05/05/2021 1709 Local . 02 Pathologist provided ICD-10: C79.51 . 02 CPT . 746308, O04028, [id number] Specimen Comment: A courtesy copy of this report has been sent to [phone] Specimen Comment: [id number], Specimen Comment: Report sent to , DR NERI / DR CAIN Specimen Comment: A duplicate report has been generated due to demographic updates. Performed at: 01 [facility] [address], [place], [place] [id number] MD Deacon Barger MD Phone: [phone] Performed at: 02 [facility] [address] [place], [place] [id number] MD Kory Pa MD Phone: [phone]
[2021-05-07] MEDS: LISINOPRIL 10 MG TABLET PO SCH (16:48)
[2021-05-07] MEDS: LABETALOL 20 MG/4 ML DISP.SYRIN. IVP PRN (17:55)
--- NOTE | 2021-05-07 19:15 | NUR ---
Pt. non compliant, insisted to go to bathroom, this nurse explained about the effects post stent placement multiple time. she is aware but she wants to get up and go to bathroom, refused the bed roberto
[2021-05-07] MEDS: cefTRIAXone IV Push 1 GM VIAL. IVP SCH (23:10)
[2021-05-08 03:01] VITALS: BP 142/59
[2021-05-08 04:44] LABS: BASO # 0.1 x10^3/uL (0.0-0.2); BASO % 1 % (0-3); EOS % 0 % (0-3); HEMATOCRIT 29.1 % (36.0-47.0); HEMOGLOBIN 9.6 g/dL (12.0-15.5); LYMPH # 2.7 x10^3/uL (1.0-4.8); LYMPH % 22 % (24-48); MEAN CORPUSCULAR HEMOGLOBIN 29 pg (25-35); MEAN CORPUSCULAR HGB CONC 33 g/dL (31-37); MEAN CORPUSCULAR VOLUME 89 fL (79-100); MONO # 0.7 x10^3/uL (0.0-1.1); MONO % 6 % (0-9); NEUT # 8.9 x10^3/uL (1.8-7.7); NEUT % 72 % (31-73); PLATELET COUNT 305 x10^3/uL (140-400); RED BLOOD COUNT 3.28 x10^6/uL (3.50-5.40); RED CELL DISTRIBUTION WIDTH 17.7 % (11.5-14.5); WHITE BLOOD COUNT 12.5 x10^3/uL (4.0-11.0)
[2021-05-08 05:09] LABS: ALBUMIN 2.6 g/dL (3.4-5.0); ALBUMIN/GLOBULIN RATIO 0.7 (1.0-1.7); CALCIUM 8.2 mg/dL (8.5-10.1); CREATININE 0.7 mg/dL (0.6-1.0); GFR 83.2; TOTAL BILIRUBIN 0.2 mg/dL (0.2-1.0); TOTAL PROTEIN 6.3 g/dL (6.4-8.2)
[2021-05-08 07:00] VITALS: BP 166/76
[2021-05-08] MEDS: ALBUTEROL SULFATE 2.5 MG/3 ML NEBU. NEB SCH ×4 (07:33→20:18)
[2021-05-08] MEDS: INSULIN LISPRO 300 UNITS/3 ML VIAL. SQ SCH ×3 (08:00→17:00)
[2021-05-08] MEDS: LISINOPRIL 10 MG TABLET PO SCH (08:57)
[2021-05-08] MEDS: methylPREDNISolone SOD SUCC PF 125 MG/2 ML VIAL. IV SCH (08:57)
--- NOTE | 2021-05-08 08:57 | PDOC ---
PROGRESS NOTES Date of Service DATE: 05/08/21 TIME: 08:52 Subjective Subjective No interval symptoms. No new complaints. Discussed results of biopsy. Objective Objective Vital Signs Date Time Temp Pulse Resp B/P (MAP) Pulse Ox O2 Delivery O2 Flow Rate FiO2 05/08/21 07:33 98 Room Air 05/08/21 03:01 98.0 64 19 142/59 (86) 98.0 05/07/21 16:13 4.0 Intake and Output 05/08/21 06:59 Intake Total 802 ml Output Total 0 ml Balance 802 ml Intake Oral 500 ml IV Total 302 ml Output Urine Total 0 ml # Voids 3 Physical Exam Physical Exam General: Awake, alert, no distress Head: Facial edema and conjunctival injection noted Neck: Edema Chest: Engorged veins noted Cardiovascular: Regular rhythm, normal rate, no murmurs Respiratory: Bilateral air entry noted, lungs clear to auscultation bilaterally. No accessory muscle use Abdominal: Abdomen is soft, nontender, nondistended. Bowel sounds were normal. No hepatomegaly or splenomegaly Musculoskeletal: No deformity noted Extremities: No edema noted Skin: No rash or lesions Neurologic: Alert and oriented x3, no grossly evident neurologic deficits noted. 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 Biopsy shows adenocarcinoma -Recommend radiation oncology consultation for palliative radiotherapy for SVC syndrome -We will request assembly line driver mutation testing and PD-L1 assessment -Anticipate beginning chemoimmunotherapy with carboplatin, pemetrexed and pembrolizumab assembly line driver mutation testing is awaited. This will started as outpatient -Recommend port placement prior to hospital discharge -She will need a brain MRI but this may be completed as outpatient -Continue to work on smoking cessation was hospital discharge -Can start DOAC at hospital discharge -Will follow inpatient and arrange outpatient follow-up. Patient was given contact information for my office Comment Review of Relevant I have reviewed the following items dena (where applicable) has been applied. Labs Laboratory Tests Test 05/06/21 11:23 05/06/21 16:35 05/06/21 20:59 05/07/21 04:50 Glucose (Fingerstick) 102 mg/dL (70-99) 166 mg/dL (70-99) 173 mg/dL (70-99) Heparin Anti-Xa Act, Unfractionated 0.53 IU/mL (0.30-0.70) Test 05/07/21 08:08 05/07/21 09:34 05/07/21 12:28 05/07/21 13:00 Glucose (Fingerstick) 53 mg/dL (70-99) 91 mg/dL (70-99) 78 mg/dL (70-99) Heparin Anti-Xa Act, Unfractionated 0.66 IU/mL (0.30-0.70) Test 05/07/21 20:39 05/08/21 03:35 05/08/21 03:55 05/08/21 07:50 Glucose (Fingerstick) 217 mg/dL (70-99) 76 mg/dL (70-99) Sodium Level 136 mmol/L (136-145) Potassium Level 4.0 mmol/L (3.5-5.1) Chloride Level 100 mmol/L (98-107) Carbon Dioxide Level 29 mmol/L (21-32) Anion Gap 7 (6-14) Blood Urea Nitrogen 15 mg/dL (7-20) Creatinine 0.7 mg/dL (0.6-1.0) Estimated GFR (Cockcroft-Gault) 83.2 BUN/Creatinine Ratio 21 (6-20) Glucose Level 95 mg/dL (70-99) Calcium Level 8.2 mg/dL (8.5-10.1) Total Bilirubin 0.2 mg/dL (0.2-1.0) Aspartate Amino Transf (AST/SGOT) 10 U/L (15-37) Alanine Aminotransferase (ALT/SGPT) 25 U/L (14-59) Alkaline Phosphatase 78 U/L (46-116) Total Protein 6.3 g/dL (6.4-8.2) Albumin 2.6 g/dL (3.4-5.0) Albumin/Globulin Ratio 0.7 (1.0-1.7) White Blood Count 12.5 x10^3/uL (4.0-11.0) Red Blood Count 3.28 x10^6/uL (3.50-5.40) Hemoglobin 9.6 g/dL (12.0-15.5) Hematocrit 29.1 % (36.0-47.0) Mean Corpuscular Volume 89 fL (79-100) Mean Corpuscular Hemoglobin 29 pg (25-35) Mean Corpuscular Hemoglobin Concent 33 g/dL (31-37) Red Cell Distribution Width 17.7 % (11.5-14.5) Platelet Count 305 x10^3/uL (140-400) Neutrophils (%) (Auto) 72 % (31-73) Lymphocytes (%) (Auto) 22 % (24-48) Monocytes (%) (Auto) 6 % (0-9) Eosinophils (%) (Auto) 0 % (0-3) Basophils (%) (Auto) 1 % (0-3) Neutrophils # (Auto) 8.9 x10^3/uL (1.8-7.7) Lymphocytes # (Auto) 2.7 x10^3/uL (1.0-4.8) Monocytes # (Auto) 0.7 x10^3/uL (0.0-1.1) Eosinophils # (Auto) 0.0 x10^3/uL (0.0-0.7) Basophils # (Auto) 0.1 x10^3/uL (0.0-0.2) Heparin Anti-Xa Act, Unfractionated 0.64 IU/mL (0.30-0.70) Laboratory Tests Test 05/07/21 09:34 05/07/21 12:28 05/07/21 13:00 05/07/21 20:39 Glucose (Fingerstick) 91 mg/dL (70-99) 78 mg/dL (70-99) 217 mg/dL (70-99) Heparin Anti-Xa Act, Unfractionated 0.66 IU/mL (0.30-0.70) Test 05/08/21 03:35 05/08/21 03:55 05/08/21 07:50 Sodium Level 136 mmol/L (136-145) Potassium Level 4.0 mmol/L (3.5-5.1) Chloride Level 100 mmol/L (98-107) Carbon Dioxide Level 29 mmol/L (21-32) Anion Gap 7 (6-14) Blood Urea Nitrogen 15 mg/dL (7-20) Creatinine 0.7 mg/dL (0.6-1.0) Estimated GFR (Cockcroft-Gault) 83.2 BUN/Creatinine Ratio 21 (6-20) Glucose Level 95 mg/dL (70-99) Calcium Level 8.2 mg/dL (8.5-10.1) Total Bilirubin 0.2 mg/dL (0.2-1.0) Aspartate Amino Transf (AST/SGOT) 10 U/L (15-37) Alanine Aminotransferase (ALT/SGPT) 25 U/L (14-59) Alkaline Phosphatase 78 U/L (46-116) Total Protein 6.3 g/dL (6.4-8.2) Albumin 2.6 g/dL (3.4-5.0) Albumin/Globulin Ratio 0.7 (1.0-1.7) White Blood Count 12.5 x10^3/uL (4.0-11.0) Red Blood Count 3.28 x10^6/uL (3.50-5.40) Hemoglobin 9.6 g/dL (12.0-15.5) Hematocrit 29.1 % (36.0-47.0) Mean Corpuscular Volume 89 fL (79-100) Mean Corpuscular Hemoglobin 29 pg (25-35) Mean Corpuscular Hemoglobin Concent 33 g/dL (31-37) Red Cell Distribution Width 17.7 % (11.5-14.5) Platelet Count 305 x10^3/uL (140-400) Neutrophils (%) (Auto) 72 % (31-73) Lymphocytes (%) (Auto) 22 % (24-48) Monocytes (%) (Auto) 6 % (0-9) Eosinophils (%) (Auto) 0 % (0-3) Basophils (%) (Auto) 1 % (0-3) Neutrophils # (Auto) 8.9 x10^3/uL (1.8-7.7) Lymphocytes # (Auto) 2.7 x10^3/uL (1.0-4.8) Monocytes # (Auto) 0.7 x10^3/uL (0.0-1.1) Eosinophils # (Auto) 0.0 x10^3/uL (0.0-0.7) Basophils # (Auto) 0.1 x10^3/uL (0.0-0.2) Heparin Anti-Xa Act, Unfractionated 0.64 IU/mL (0.30-0.70) Glucose (Fingerstick) 76 mg/dL (70-99) Medications Current Medications Acetaminophen (Tylenol) 650 mg PRN Q4HRS PRN PO TEMP OVER 100.4F OR MILD PAIN; Start 05/01/21 at 21:15; Stop 05/02/21 at 16:19; Status DC Magnesium Sulfate 50 ml @ 25 mls/hr 1X ONCE IV Last administered on 05/01/21at 22:37; Start 05/01/21 at 23:00; Stop 05/02/21 at 00:59; Status DC Ceftriaxone Sodium (Rocephin) 1 gm Q24H IVP Last administered on 05/07/21at 23:10; Start 05/01/21 at 23:00 Lisinopril (Prinivil) 10 mg DAILY PO Last administered on 05/07/21at 16:48; Start 05/02/21 at 09:00 Albuterol Sulfate (Ventolin Neb Soln) 2.5 mg RTQID NEB Last administered on 05/08/21at 07:33; Start 05/02/21 at 08:00 Albuterol Sulfate (Ventolin Neb Soln) 2.5 mg PRN Q4HRS PRN NEB SHORTNESS OF BREATH Last administered on 05/01/21at 22:06; Start 05/01/21 at 21:15 Insulin Human Lispro (HumaLOG) 0-7 UNITS TIDWMEALS SQ ; Start 05/02/21 at 08:00; Stop 05/02/21 at 17:36; Status DC Dextrose (Dextrose 50%-Water Syringe) 12.5 gm PRN Q15MIN PRN IV SEE COMMENTS; Start 05/01/21 at 21:15; Stop 05/02/21 at 16:20; Status DC Guaifenesin (Robitussin Dm) 10 ml PRN Q6HRS PRN PO COUGH; Start 05/01/21 at 21:15 Heparin Sodium/ Dextrose 250 ml @ 14 mls/hr CONT PRN IV PER PROTOCOL Last administered on 05/07/21at 23:16; Start 05/02/21 at 00:15 Heparin Sodium (Porcine) (Heparin Sodium) 2,650 unit PRN Q6HRS PRN IV FOR UFH LEVEL LESS THAN 0.2 Last administered on 05/02/21at 10:48; Start 05/02/21 at 00:15 Heparin Sodium (Porcine) (Heparin Sodium) 1,300 unit PRN Q6HRS PRN IV FOR UFH LEVEL 0.2 - 0.29 Last administered on 05/03/21at 11:24; Start 05/02/21 at 00:15 Info (Anti-Coagulation Monitoring By Pharmacy) 1 each PRN DAILY PRN MC PER PROTOCOL Last administered on 05/02/21at 08:06; Start 05/02/21 at 00:30 Methylprednisolone Sodium Succinate (SOLU-Medrol 125MG VIAL) 125 mg DAILY IV Last administered on 05/04/21at 09:21; Start 05/03/21 at 09:00; Stop 05/05/21 at 08:13; Status DC Methylprednisolone Sodium Succinate (SOLU-Medrol 125MG VIAL) 125 mg 1X ONCE IV Last administered on 05/02/21at 12:26; Start 05/02/21 at 12:00; Stop 05/02/21 at 12:03; Status DC Amlodipine Besylate (Norvasc) 5 mg QHS PO Last administered on 05/07/21at 23:10; Start 05/02/21 at 21:00 Losartan Potassium (Cozaar) 50 mg QHS PO ; Start 05/02/21 at 21:00; Status Cancel Labetalol HCl (Normodyne Iv Push) 20 mg PRN Q2HR PRN IVP HYPERTENSION Last administered on 05/07/21at 17:55; Start 05/02/21 at 16:15 Sennosides (Senna) 17.2 mg PRN BID PRN PO CONSTIPATION; Start 05/02/21 at 16:15 Docusate Sodium (Colace) 100 mg PRN DAILY PRN PO HARD STOOLS; Start 05/02/21 at 16:15 Ondansetron HCl (Zofran) 4 mg PRN Q6HRS PRN IVP NAUSEA/VOMITING (1st Choice); Start 05/02/21 at 16:15 Insulin Human Lispro (HumaLOG) 0-9 UNITS TIDWMEALS SQ Last administered on 05/06/21at 17:23; Start 05/02/21 at 17:00 Dextrose (Dextrose 50%-Water Syringe) 12.5 gm PRN Q15MIN PRN IV SEE COMMENTS; Start 05/02/21 at 16:15; Stop 05/07/21 at 11:24; Status DC Acetaminophen (Tylenol) 650 mg PRN Q4HRS PRN PO TEMP OVER 100.4F OR MILD PAIN; Start 05/02/21 at 16:15 Lorazepam (Ativan) 0.5 mg PRN Q6HRS PRN PO ANXIETY / AGITATION; Start 05/02/21 at 16:15 Lorazepam (Ativan Inj) 0.25 mg PRN Q4HRS PRN IV ANXIETY / AGITATION; Start 05/02/21 at 16:15 Morphine Sulfate (Morphine Sulfate) 1 mg PRN Q1HR PRN IV PAIN-SEE COMMENTS; Start 05/02/21 at 16:15 Morphine Sulfate (Morphine Sulfate) 2 mg PRN Q2HR PRN IVP SEVERE PAIN 7-10; Start 05/02/21 at 16:15; Stop 05/03/21 at 16:14; Status DC Prochlorperazine Edisylate (Compazine) 10 mg PRN Q6HRS PRN IV NAUSEA/VOMITING (2nd Choice); Start 05/02/21 at 16:15 Zolpidem Tartrate (Ambien) 2.5 mg PRN QHS PRN PO INSOMNIA; Start 05/02/21 at 16:15 Insulin Glargine (Lantus Syringe) 10 unit BID SQ Last administered on 05/06/21at 21:22; Start 05/03/21 at 21:00; Stop 05/07/21 at 09:52; Status DC Magnesium Sulfate 50 ml @ 25 mls/hr 1X ONCE IV Last administered on 05/04/21at 12:01; Start 05/04/21 at 11:30; Stop 05/04/21 at 13:29; Status DC Methylprednisolone Sodium Succinate (SOLU-Medrol 125MG VIAL) 60 mg DAILY IV Last administered on 05/07/21at 09:42; Start 05/05/21 at 09:00 Lidocaine HCl (Buffered Lidocaine 1%) 3 ml STK-MED ONCE .ROUTE ; Start 05/05/21 at 12:42; Stop 05/05/21 at 12:42; Status DC Fentanyl Citrate (Fentanyl 2ml Vial) 100 mcg STK-MED ONCE .ROUTE ; Start 05/05/21 at 12:53; Stop 05/05/21 at 12:53; Status DC Naloxone HCl (Narcan) 0.4 mg STK-MED ONCE .ROUTE ; Start 05/05/21 at 12:54; Stop 05/05/21 at 12:54; Status DC Lidocaine HCl (Buffered Lidocaine 1%) 3 ml 1X ONCE INJ Last administered on 05/05/21at 13:36; Start 05/05/21 at 13:45; Stop 05/05/21 at 13:46; Status DC Fentanyl Citrate (Fentanyl 2ml Vial) 100 mcg 1X ONCE IM Last administered on 05/05/21at 13:37; Start 05/05/21 at 13:45; Stop 05/05/21 at 13:46; Status DC Gadoterate Meglumine (Clariscan) 19 ml 1X ONCE IVP ; Start 05/06/21 at 11:30; Stop 05/06/21 at 11:32; Status DC Iohexol (Omnipaque 300 Mg/ml) 70 ml 1X ONCE IV Last administered on 05/06/21at 15:37; Start 05/06/21 at 15:30; Stop 05/06/21 at 15:32; Status DC Info (CONTRAST GIVEN -- Rx MONITORING) 1 each PRN DAILY PRN MC SEE COMMENTS; Start 05/06/21 at 15:45; Stop 05/08/21 at 15:44 Dextrose (Dextrose 50%-Water Syringe) 12.5 gm PRN Q15MIN PRN IV SEE COMMENTS; Start 05/07/21 at 08:45 Potassium Chloride/Dextrose/ Sod Cl 1,000 ml @ 100 mls/hr Q10H ONCE IV Last administered on 05/07/21at 13:29; Start 05/07/21 at 13:00; Stop 05/07/21 at 22:59; Status DC Lidocaine HCl (Buffered Lidocaine 1%) 3 ml STK-MED ONCE .ROUTE ; Start 05/07/21 at 13:49; Stop 05/07/21 at 13:49; Status DC Iodixanol (Visipaque 320) 100 ml STK-MED ONCE .ROUTE ; Start 05/07/21 at 13:49; Stop 05/07/21 at 13:50; Status DC Heparin Sodium/ Sodium Chloride 1,000 ml @ As Directed STK-MED ONCE .ROUTE ; Start 05/07/21 at 13:49; Stop 05/07/21 at 13:50; Status DC Midazolam HCl (Versed) 2 mg STK-MED ONCE .ROUTE ; Start 05/07/21 at 13:52; Stop 05/07/21 at 13:52; Status DC Fentanyl Citrate (Fentanyl 2ml Vial) 100 mcg STK-MED ONCE .ROUTE ; Start 05/07/21 at 13:52; Stop 05/07/21 at 13:52; Status DC Heparin Sodium (Porcine) (Heparin Sodium) 10,000 unit STK-MED ONCE .ROUTE ; Start 05/07/21 at 13:52; Stop 05/07/21 at 13:52; Status DC Heparin Sodium/ Sodium Chloride (HEPARIN for ARTERIAL LINE FLUSH) 1,000 unit 1X ONCE IART Last administered on 05/07/21at 14:45; Start 05/07/21 at 14:45; Stop 05/07/21 at 14:49; Status DC Heparin Sodium/ Sodium Chloride (HEPARIN for ARTERIAL LINE FLUSH) 1,000 unit 1X ONCE IART Last administered on 05/07/21at 16:10; Start 05/07/21 at 14:45; Sto p 05/07/21 at 14:49; Status DC Lidocaine HCl (Buffered Lidocaine 1%) 3 ml 1X ONCE IJ Last administered on 05/07/21at 14:45; Start 05/07/21 at 14:45; Stop 05/07/21 at 14:49; Status DC Midazolam HCl (Versed) 2 mg 1X ONCE IV Last administered on 05/07/21at 15:31; Start 05/07/21 at 14:45; Stop 05/07/21 at 14:49; Status DC Fentanyl Citrate (Fentanyl 2ml Vial) 100 mcg 1X ONCE IV Last administered on 05/07/21at 15:31; Start 05/07/21 at 14:45; Stop 05/07/21 at 14:49; Status DC Iodixanol (Visipaque 320) 100 ml 1X ONCE IART Last administered on 05/07/21at 16:09; Start 05/07/21 at 14:45; Stop 05/07/21 at 14:49; Status DC Heparin Sodium (Porcine) (Heparin Sodium) 4,000 unit 1X ONCE IV Last administered on 05/07/21at 15:37; Start 05/07/21 at 14:45; Stop 05/07/21 at 14:49; Status DC Info (CONTRAST GIVEN -- Rx MONITORING) 1 each PRN DAILY PRN MC SEE COMMENTS; Start 05/07/21 at 14:45; Stop 05/09/21 at 14:44 Iodixanol (Visipaque 320) 100 ml STK-MED ONCE .ROUTE ; Start 05/07/21 at 15:25; Stop 05/07/21 at 15:26; Status DC Active Scripts Active Reported Lisinopril 10 Mg Tablet 1 Tab PO DAILY Metformin Hcl 1,000 Mg Tablet 1,000 Mg PO BIDWMEALS Vitals/I & O Vital Sign - Last 24 Hours 05/07/21 05/07/21 05/07/21 05/07/21 11:00 15:31 16:01 16:13 Temp 97.7 97.7 Pulse 69 70 Resp 20 18 18 B/P (MAP) 165/75 (105) Pulse Ox 99 97 97 O2 Delivery Room Air Nasal Cannula Room Air Nasal Cannula O2 Flow Rate 4.0 4.0 4.0 05/07/21 05/07/21 05/07/21 05/07/21 16:45 16:48 17:00 17:15 Pulse 71 B/P (MAP) 200/75 (116) 200/78 197/80 (119) 194/76 (115) 05/07/21 05/07/21 05/07/21 05/07/21 17:30 17:45 17:55 18:00 Pulse 81 B/P (MAP) 202/84 (123) 226/94 (138) 226/94 193/73 (113) 05/07/21 05/07/21 05/07/21 05/07/21 18:15 18:30 18:45 19:00 B/P (MAP) 151/69 (96) 156/65 (95) 144/64 (90) 154/62 (92) 05/07/21 05/07/21 05/07/21 05/07/21 19:15 19:30 19:45 20:00 B/P (MAP) 152/66 (94) 165/75 (105) 153/69 (97) O2 Delivery Room Air 05/07/21 05/07/21 05/07/21 05/07/21 20:10 20:53 23:10 23:47 Temp 97.8 97.8 Pulse 81 64 Resp 19 B/P (MAP) 137/62 (87) 153/69 163/63 (96) Pulse Ox 94 100 O2 Delivery Room Air Room Air 05/08/21 05/08/21 03:01 07:33 Temp 98.0 98.0 Pulse 64 Resp 19 B/P (MAP) 142/59 (86) Pulse Ox 98 98 O2 Delivery Room Air Room Air Intake and Output 05/07/21 05/07/21 05/08/21 14:59 22:59 06:59 Intake Total 0 ml 300 ml 502 ml Output Total 0 ml Balance 0 ml 300 ml 502 ml Justifications for Admission Other Justification Right lung mass and hypertensive urgency LAMBERTO EVANS MD May 08, 2021 08:57
--- NOTE | 2021-05-08 09:54 | PDOC ---
PULMONARY PROGRESS NOTES DATE: 05/08/21 TIME: 09:52 Subjective Pt. is resting on NC oxygen . Status post stenting of SVC no increased SOA or cough remains on heparin gtt no overnight concerns Vitals Vital Signs Date Time Temp Pulse Resp B/P (MAP) Pulse Ox O2 Delivery O2 Flow Rate FiO2 05/08/21 08:57 72 05/08/21 07:33 98 Room Air 05/08/21 03:01 98.0 19 142/59 (86) 98.0 05/07/21 16:13 4.0 ROS: No Nausea, No Chest Pain, No Abdominal Pain, No Increase Cough General: Alert, Oriented X4 HEENT: Other Lungs: Clear, Other (b lat diminished) Cardiovascular: S1, S2 Abdomen: Soft, Non-tender Neuro Exam: Alert Skin: Warm Labs Laboratory Tests Test 05/06/21 11:23 05/06/21 16:35 05/06/21 20:59 05/07/21 04:50 Glucose (Fingerstick) 102 mg/dL (70-99) 166 mg/dL (70-99) 173 mg/dL (70-99) Heparin Anti-Xa Act, Unfractionated 0.53 IU/mL (0.30-0.70) Test 05/07/21 08:08 05/07/21 09:34 05/07/21 12:28 05/07/21 13:00 Glucose (Fingerstick) 53 mg/dL (70-99) 91 mg/dL (70-99) 78 mg/dL (70-99) Heparin Anti-Xa Act, Unfractionated 0.66 IU/mL (0.30-0.70) Test 05/07/21 20:39 05/08/21 03:35 05/08/21 03:55 05/08/21 07:50 Glucose (Fingerstick) 217 mg/dL (70-99) 76 mg/dL (70-99) Sodium Level 136 mmol/L (136-145) Potassium Level 4.0 mmol/L (3.5-5.1) Chloride Level 100 mmol/L (98-107) Carbon Dioxide Level 29 mmol/L (21-32) Anion Gap 7 (6-14) Blood Urea Nitrogen 15 mg/dL (7-20) Creatinine 0.7 mg/dL (0.6-1.0) Estimated GFR (Cockcroft-Gault) 83.2 BUN/Creatinine Ratio 21 (6-20) Glucose Level 95 mg/dL (70-99) Calcium Level 8.2 mg/dL (8.5-10.1) Total Bilirubin 0.2 mg/dL (0.2-1.0) Aspartate Amino Transf (AST/SGOT) 10 U/L (15-37) Alanine Aminotransferase (ALT/SGPT) 25 U/L (14-59) Alkaline Phosphatase 78 U/L (46-116) Total Protein 6.3 g/dL (6.4-8.2) Albumin 2.6 g/dL (3.4-5.0) Albumin/Globulin Ratio 0.7 (1.0-1.7) White Blood Count 12.5 x10^3/uL (4.0-11.0) Red Blood Count 3.28 x10^6/uL (3.50-5.40) Hemoglobin 9.6 g/dL (12.0-15.5) Hematocrit 29.1 % (36.0-47.0) Mean Corpuscular Volume 89 fL (79-100) Mean Corpuscular Hemoglobin 29 pg (25-35) Mean Corpuscular Hemoglobin Concent 33 g/dL (31-37) Red Cell Distribution Width 17.7 % (11.5-14.5) Platelet Count 305 x10^3/uL (140-400) Neutrophils (%) (Auto) 72 % (31-73) Lymphocytes (%) (Auto) 22 % (24-48) Monocytes (%) (Auto) 6 % (0-9) Eosinophils (%) (Auto) 0 % (0-3) Basophils (%) (Auto) 1 % (0-3) Neutrophils # (Auto) 8.9 x10^3/uL (1.8-7.7) Lymphocytes # (Auto) 2.7 x10^3/uL (1.0-4.8) Monocytes # (Auto) 0.7 x10^3/uL (0.0-1.1) Eosinophils # (Auto) 0.0 x10^3/uL (0.0-0.7) Basophils # (Auto) 0.1 x10^3/uL (0.0-0.2) Heparin Anti-Xa Act, Unfractionated 0.64 IU/mL (0.30-0.70) Laboratory Tests Test 05/07/21 12:28 05/07/21 13:00 05/07/21 20:39 05/08/21 03:35 Glucose (Fingerstick) 78 mg/dL (70-99) 217 mg/dL (70-99) Heparin Anti-Xa Act, Unfractionated 0.66 IU/mL (0.30-0.70) Sodium Level 136 mmol/L (136-145) Potassium Level 4.0 mmol/L (3.5-5.1) Chloride Level 100 mmol/L (98-107) Carbon Dioxide Level 29 mmol/L (21-32) Anion Gap 7 (6-14) Blood Urea Nitrogen 15 mg/dL (7-20) Creatinine 0.7 mg/dL (0.6-1.0) Estimated GFR (Cockcroft-Gault) 83.2 BUN/Creatinine Ratio 21 (6-20) Glucose Level 95 mg/dL (70-99) Calcium Level 8.2 mg/dL (8.5-10.1) Total Bilirubin 0.2 mg/dL (0.2-1.0) Aspartate Amino Transf (AST/SGOT) 10 U/L (15-37) Alanine Aminotransferase (ALT/SGPT) 25 U/L (14-59) Alkaline Phosphatase 78 U/L (46-116) Total Protein 6.3 g/dL (6.4-8.2) Albumin 2.6 g/dL (3.4-5.0) Albumin/Globulin Ratio 0.7 (1.0-1.7) Test 05/08/21 03:55 05/08/21 07:50 White Blood Count 12.5 x10^3/uL (4.0-11.0) Red Blood Count 3.28 x10^6/uL (3.50-5.40) Hemoglobin 9.6 g/dL (12.0-15.5) Hematocrit 29.1 % (36.0-47.0) Mean Corpuscular Volume 89 fL (79-100) Mean Corpuscular Hemoglobin 29 pg (25-35) Mean Corpuscular Hemoglobin Concent 33 g/dL (31-37) Red Cell Distribution Width 17.7 % (11.5-14.5) Platelet Count 305 x10^3/uL (140-400) Neutrophils (%) (Auto) 72 % (31-73) Lymphocytes (%) (Auto) 22 % (24-48) Monocytes (%) (Auto) 6 % (0-9) Eosinophils (%) (Auto) 0 % (0-3) Basophils (%) (Auto) 1 % (0-3) Neutrophils # (Auto) 8.9 x10^3/uL (1.8-7.7) Lymphocytes # (Auto) 2.7 x10^3/uL (1.0-4.8) Monocytes # (Auto) 0.7 x10^3/uL (0.0-1.1) Eosinophils # (Auto) 0.0 x10^3/uL (0.0-0.7) Basophils # (Auto) 0.1 x10^3/uL (0.0-0.2) Heparin Anti-Xa Act, Unfractionated 0.64 IU/mL (0.30-0.70) Glucose (Fingerstick) 76 mg/dL (70-99) Medications Active Scripts Medications Dose Route/Sig Max Daily Dose Days Date Category Lisinopril 10 Mg Tablet 1 Tab PO DAILY 05/04/21 Reported Metformin Hcl 1,000 Mg Tablet 1,000 Mg PO BIDWMEALS 05/04/21 Reported Impression . IMPRESSION: 1. Acute hypoxemic respiratory failure, multifactorial. 2. Abnormal CT chest revealing a large right upper lobe/mediastinal mass/ svc syndrome/ venous clot subclavian/ brachiocephalic. Biopsy consistent with non- small cell lung cancer 3. Superior vena cava syndrome. 4. 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 Tobacco dependence. 6. Chronic obstructive pulmonary disease./ 55 yrs tobacco use Plan . PLAN Status post biopsy of the lytic lesion from the left pelvis-- pathology positive for non-small cell- special stains pending Discussed with IR. She is status post stenting of SVC . Plan is to consider Port-A-Cath placement while in the hospital. Continue with heparin per protocol till Port-A-Cath is placed. We will switch her to Eliquis in the next 24 hours. Follow radiation oncology and medical oncology recommendations CT head negative for mets, she could not tolerate MRI. Continue steroids, will slow taper DVT/GI PPX D/W CHIRAG MARQUIS MD May 08, 2021 09:54
[2021-05-08 11:00] VITALS: BP 177/70
--- NOTE | 2021-05-08 12:46 | NUR ---
SS following up with discharge planning. SS reviewed pt chart and discussed with pt RN. Pt is currently on room air. Pt on IV Solu-Medrol and IV Rocephin. Pt to have outpatient chemotherapy and radiation. Currently awaiting port placement prior to discharge. PT/OT recommended home. Pt accepted on services with [facility], ; fax [phone]. SS will continue to follow for discharge planning.
--- NOTE | 2021-05-08 13:41 | RAD ---
05/07/2021 1. Right upper extremity venogram. 2. Superior venacavogram 3. 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 Discussion of the risks included, but was not limited to, those that are most frequent and thos e that are rare but possibly severe or life-threatening, as well as the possibility of unforeseen com plications. Sedation: The procedure was performed under conscious sedation including continuous cardiopulmonary m onitoring via a dedicated sedation nurse. [id number] sedation time: 122 minutes The right upper extremity was prepped and draped using maximum sterile barrier technique. 1% lidocain e was administered for local anesthesia. Under direct ultrasound guidance, the right cephalic vein wa s accessed. Sheath was placed. 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 Multiple large collaterals noted. The catheter was then manipulated partially through the obstructed vein. Repeat venogram demonstrates patency of the left brachiocephalic vein extending into the left jugular vein. The occlusion could n ot be adequately traversed from this access. Therefore the right common femoral vein was accessed wit h direct ultrasound guidance. The vein is sent to be patent under ultrasound. Sheath was placed. The SVC occlusion was traversed from below with a wire extending into the left brachiocephalic vein. With subsequent manipulation of the right arm access, a guidewire was advanced through the occlusion into the IVC. Following predilatation with 10 mm balloons, a right-sided, 12 mm x 8 cm self-expanding stent, and a left-sided 12 mm x 6 cm self-expanding stent were deployed in a kissing fashion. These were post dila brian to 10 mm high-pressure balloon. Through both stents was seen flowing into the caudad SVC. No fill ing of the previously identified collaterals is identified. Both sheaths were removed and manual pres sure was held on the groin and right arm respectively. Sterile dressings were applied. No immediate c omplications were identified. Total fluoroscopy time 34.5 minutes Dose area product 253 [address] 7 sq m. IMPRESSION: Successful treatment of malignant superior vena cava syndrome with placement of bilateral kissing brachiocephalic stents extending into the SVC Electronically signed by: Alec Bennett MD (05/08/2021 1:39 PM) [id number]
[2021-05-08 15:00] VITALS: BP 164/64
--- NOTE | 2021-05-08 15:00 | PDOC ---
[employer] PROGRESS NOTE Date of Service DOS: DATE: 05/08/21 TIME: 14:59 Chief Complaint Chief Complaint adenocarcinoma lung, metastatic Hypertensive urgency Supra vena cava syndrome, DVT. Heparin gtt Tobacco abuse Obesity BMI 35 History of Present Illness History of Present Illness 05/08, right arm still swollen, neck and chest much improved, stent to SVC done, IR following will needs port placed before DC to start chemo soon 05/07 stent planned for SVC today hypoglycemia, will stop the lantus insulin, still on steriods, will taper still on heparin gtt, may be able to transition to PO cont current plan home health at [place] Patient is a 62-year-old female with past medical history of diabetes, hypertension, 55-year of smoking who comes in with bilateral upper extremity swelling and bilateral lower extremity shortness of breath for the last week. Apparently patient was seen in [place] 1 week ago for pneumonialike symptoms and she was treated with antibiotics. She was also told that they did scan her and they told her that she had a mass in her lung. She did not follow-up with this. Patient did have a Covid positivity in December and she was having shortness of breath at that time. She does denies have any history of CHF or kidney disease. Patient went to [facility] ER to be evaluated because of her upper extremity swelling. CT of the chest was significant for a right suprahilar mass extending into the mediastinum and supra vena cava occlusion with acute appearing thrombus. For this reason patient was sent over for further evaluation of possible thrombectomy with interventional radiology. Pulmonology and oncology are consulted 05/03/2021 No acute events overnight. Patient seen examined bedside. No complaints the patient at this time. Facial plethora is minimal. Continue on heparin drip. Patient's chart, labs, images were reviewed and discussed with RN 05/04/2021 No acute events overnight. Patient seen examined bedside. Sugars are well controlled on current insulin regimen. Continue with heparin drip. Plan for SVC stent tomorrow with IR and possible lung biopsy. Patient's chart, labs, images were reviewed and discussed with RN 05/05, cont current, biopsy today, lung cancer causes of vena cava syndrome Vitals/I&O Vitals/I&O: Vital Signs Date Time Temp Pulse Resp B/P (MAP) Pulse Ox O2 Delivery O2 Flow Rate FiO2 05/08/21 11:05 Room Air 05/08/21 11:00 98.4 65 18 177/70 (105) 89 98.4 05/08/21 08:05 2.0 I & O 05/07/21 05/07/21 05/08/21 15:00 23:00 07:00 Intake Total 0 ml 300 ml 502 ml Output Total 0 ml Balance 0 ml 300 ml 502 ml Physical Exam General: Alert, Oriented X3, Cooperative, No acute distress Heart: Normal S1, Normal S2, No murmurs Lungs: Clear, Other (b lat diminished) Abdomen: Normal bowel sounds, Soft, No tenderness Extremities: Other (Significant swelling of both arms.) Skin: No significant lesion Labs Labs: Laboratory Tests Test 05/07/21 20:39 05/08/21 03:35 05/08/21 03:55 05/08/21 07:50 Glucose (Fingerstick) 217 mg/dL (70-99) 76 mg/dL (70-99) Sodium Level 136 mmol/L (136-145) Potassium Level 4.0 mmol/L (3.5-5.1) Chloride Level 100 mmol/L (98-107) Carbon Dioxide Level 29 mmol/L (21-32) Anion Gap 7 (6-14) Blood Urea Nitrogen 15 mg/dL (7-20) Creatinine 0.7 mg/dL (0.6-1.0) Estimated GFR (Cockcroft-Gault) 83.2 BUN/Creatinine Ratio 21 (6-20) Glucose Level 95 mg/dL (70-99) Calcium Level 8.2 mg/dL (8.5-10.1) Total Bilirubin 0.2 mg/dL (0.2-1.0) Aspartate Amino Transf (AST/SGOT) 10 U/L (15-37) Alanine Aminotransferase (ALT/SGPT) 25 U/L (14-59) Alkaline Phosphatase 78 U/L (46-116) Total Protein 6.3 g/dL (6.4-8.2) Albumin 2.6 g/dL (3.4-5.0) Albumin/Globulin Ratio 0.7 (1.0-1.7) White Blood Count 12.5 x10^3/uL (4.0-11.0) Red Blood Count 3.28 x10^6/uL (3.50-5.40) Hemoglobin 9.6 g/dL (12.0-15.5) Hematocrit 29.1 % (36.0-47.0) Mean Corpuscular Volume 89 fL (79-100) Mean Corpuscular Hemoglobin 29 pg (25-35) Mean Corpuscular Hemoglobin Concent 33 g/dL (31-37) Red Cell Distribution Width 17.7 % (11.5-14.5) Platelet Count 305 x10^3/uL (140-400) Neutrophils (%) (Auto) 72 % (31-73) Lymphocytes (%) (Auto) 22 % (24-48) Monocytes (%) (Auto) 6 % (0-9) Eosinophils (%) (Auto) 0 % (0-3) Basophils (%) (Auto) 1 % (0-3) Neutrophils # (Auto) 8.9 x10^3/uL (1.8-7.7) Lymphocytes # (Auto) 2.7 x10^3/uL (1.0-4.8) Monocytes # (Auto) 0.7 x10^3/uL (0.0-1.1) Eosinophils # (Auto) 0.0 x10^3/uL (0.0-0.7) Basophils # (Auto) 0.1 x10^3/uL (0.0-0.2) Heparin Anti-Xa Act, Unfractionated 0.64 IU/mL (0.30-0.70) Test 05/08/21 11:47 Glucose (Fingerstick) 148 mg/dL (70-99) Comment Review of Relevant I have reviewed the following items dena (where applicable) has been applied. Justifications for Admission Other Justification Right lung mass and hypertensive urgency CHRIS BOYCE MD May 08, 2021 15:00
[2021-05-08] MEDS: HEPARIN 25,000UTS/250ML PREMIX 250 ML IV PRN (17:10)
[2021-05-08 19:39] VITALS: BP 146/61
[2021-05-08 23:11] VITALS: BP 177/81
[2021-05-08] MEDS: cefTRIAXone IV Push 1 GM VIAL. IVP SCH (23:32)
[2021-05-09] VITALS (7 sets, daily range): BP systolic 123–181; BP diastolic 56–86
[2021-05-09] MEDS: ALBUTEROL SULFATE 2.5 MG/3 ML NEBU. NEB SCH ×4 (07:29→19:58)
[2021-05-09] MEDS: INSULIN LISPRO 300 UNITS/3 ML VIAL. SQ SCH ×3 (08:00→17:59)
[2021-05-09] MEDS: methylPREDNISolone SOD SUCC PF 125 MG/2 ML VIAL. IV SCH (09:45)
[2021-05-09] MEDS: LISINOPRIL 10 MG TABLET PO SCH (09:46)
--- NOTE | 2021-05-09 11:05 | PDOC ---
PULMONARY PROGRESS NOTES DATE: 05/09/21 TIME: 11:02 Subjective Pt. is resting on [place] oxygen . Status post stenting of bilateral brachiocephalic veins. no increased SOA or cough remains on heparin gtt no overnight concerns Vitals Vital Signs Date Time Temp Pulse Resp B/P (MAP) Pulse Ox O2 Delivery O2 Flow Rate FiO2 05/09/21 09:46 69 178/82 05/09/21 08:00 Room Air 05/09/21 07:30 91 05/09/21 07:00 97.4 18 97.4 05/08/21 08:05 2.0 ROS: No Nausea, No Chest Pain, No Abdominal Pain, No Increase Cough General: Alert, Oriented X4 HEENT: Other Lungs: Clear, Other (b lat diminished) Cardiovascular: S1, S2 Abdomen: Soft, Non-tender Neuro Exam: Alert Skin: Warm Labs Laboratory Tests Test 05/07/21 12:28 05/07/21 13:00 05/07/21 20:39 05/08/21 03:35 Glucose (Fingerstick) 78 mg/dL (70-99) 217 mg/dL (70-99) Heparin Anti-Xa Act, Unfractionated 0.66 IU/mL (0.30-0.70) Sodium Level 136 mmol/L (136-145) Potassium Level 4.0 mmol/L (3.5-5.1) Chloride Level 100 mmol/L (98-107) Carbon Dioxide Level 29 mmol/L (21-32) Anion Gap 7 (6-14) Blood Urea Nitrogen 15 mg/dL (7-20) Creatinine 0.7 mg/dL (0.6-1.0) Estimated GFR (Cockcroft-Gault) 83.2 BUN/Creatinine Ratio 21 (6-20) Glucose Level 95 mg/dL (70-99) Calcium Level 8.2 mg/dL (8.5-10.1) Total Bilirubin 0.2 mg/dL (0.2-1.0) Aspartate Amino Transf (AST/SGOT) 10 U/L (15-37) Alanine Aminotransferase (ALT/SGPT) 25 U/L (14-59) Alkaline Phosphatase 78 U/L (46-116) Total Protein 6.3 g/dL (6.4-8.2) Albumin 2.6 g/dL (3.4-5.0) Albumin/Globulin Ratio 0.7 (1.0-1.7) Test 05/08/21 03:55 05/08/21 07:50 05/08/21 11:47 05/08/21 18:19 White Blood Count 12.5 x10^3/uL (4.0-11.0) Red Blood Count 3.28 x10^6/uL (3.50-5.40) Hemoglobin 9.6 g/dL (12.0-15.5) Hematocrit 29.1 % (36.0-47.0) Mean Corpuscular Volume 89 fL (79-100) Mean Corpuscular Hemoglobin 29 pg (25-35) Mean Corpuscular Hemoglobin Concent 33 g/dL (31-37) Red Cell Distribution Width 17.7 % (11.5-14.5) Platelet Count 305 x10^3/uL (140-400) Neutrophils (%) (Auto) 72 % (31-73) Lymphocytes (%) (Auto) 22 % (24-48) Monocytes (%) (Auto) 6 % (0-9) Eosinophils (%) (Auto) 0 % (0-3) Basophils (%) (Auto) 1 % (0-3) Neutrophils # (Auto) 8.9 x10^3/uL (1.8-7.7) Lymphocytes # (Auto) 2.7 x10^3/uL (1.0-4.8) Monocytes # (Auto) 0.7 x10^3/uL (0.0-1.1) Eosinophils # (Auto) 0.0 x10^3/uL (0.0-0.7) Basophils # (Auto) 0.1 x10^3/uL (0.0-0.2) Heparin Anti-Xa Act, Unfractionated 0.64 IU/mL (0.30-0.70) Glucose (Fingerstick) 76 mg/dL (70-99) 148 mg/dL (70-99) 255 mg/dL (70-99) Test 05/08/21 20:24 05/09/21 07:50 Glucose (Fingerstick) 265 mg/dL (70-99) 90 mg/dL (70-99) Laboratory Tests Test 05/08/21 11:47 05/08/21 18:19 05/08/21 20:24 05/09/21 07:50 Glucose (Fingerstick) 148 mg/dL (70-99) 255 mg/dL (70-99) 265 mg/dL (70-99) 90 mg/dL (70-99) Medications Active Scripts Medications Dose Route/Sig Max Daily Dose Days Date Category Lisinopril 10 Mg Tablet 1 Tab PO DAILY 05/04/21 Reported Metformin Hcl 1,000 Mg Tablet 1,000 Mg PO BIDWMEALS 05/04/21 Reported Impression . IMPRESSION: 1. Acute hypoxemic respiratory failure, multifactorial. 2. Abnormal CT chest revealing a large right upper lobe/mediastinal mass/ svc syndrome/ venous clot subclavian/ brachiocephalic. Biopsy consistent with non-small cell lung cancer 3. Superior vena cava syndrome. 4. Suspected stage 4 lung cancer with lytic metastases to the pelvic area .pathology positive non-small cell-special stains pending 5. Tobacco dependence. 6. Chronic obstructive pulmonary disease./ 55 yrs tobacco use Plan . PLAN Status post biopsy of the lytic lesion from the left pelvis-- pathology positive for non-small cell- special stains pending Discussed with IR. She is status post stenting of SVC . Plan is to do Port-A-Cath placement today. Continue with heparin per protocol till Port-A-Cath is placed. We will switch her to Eliquis post Port-A-Cath placement. Follow radiation oncology and medical oncology recommendations CT head negative for mets, she could not tolerate MRI. Continue steroids, will slow taper DVT/GI PPX D/W RN Okay to discharge after Port-A-Cath placement. Will initiate Eliquis post procedure. Patient will remain on lifelong Eliquis due to hypercoagulable state from malignancy Patient to follow-up with me on June 25 CHIRAG VANEGAS MD May 09, 2021 11:05
[2021-05-09] MEDS ORDERED: AMLO-186 PO (11:28)
[2021-05-09] MEDS ORDERED: PRED-220 PO (11:30)
[2021-05-09] MEDS ORDERED: diphenhydrAMINE HCL 25 MG CAPSULE PO ONE (11:30)
[2021-05-09] MEDS ORDERED: diphenhydrAMINE HCL 25 MG CAPSULE PO PRN (11:30)
[2021-05-09] MEDS ORDERED: APIX5TAB PO (11:33)
--- NOTE | 2021-05-09 11:35 | SNU/HH DC ---
DISCHARGE WITH HOME HEALTH DISCHARGE INFORMATION: Discharge Date: May 09, 2021 Final Diagnosis: acute hypoxic respiratory failure SVC syndrome new adenocarcinoma lung, stage iv obese, BMI 35 COPD Condition on Discharge: Stable CODE STATUS: Code Status: Full HOME HEALTH: Face to Face: I certify this patient is under my care and that I, had a face to face encounter that meets the physician face to face encounter requirements with this patient on 05/09 Medical Complications: Other (DVT, COPD, SVC syndrome) RN For Eval/Treatment: Yes Physical Therapy For: Evalulation/Treatment Occupational Therapy For: Evaluation/Treatment Pt Meets Homebound Status: Unsteady balance w/ amb,, Limited distance walking POST DISCHARGE ORDERS: DIET AFTER DISCHARGE: Regular CHECKS AFTER DISCHARGE: Comment: lower back FOLLOW-UP: Follow up with: Dr. Medina, oncology, 1 week or will call TREATMENT/EQUIPMENT ORDERS: Adaptive Equipment Issued: Front wheeled walker CERTIFICATION STATEMENT: Certification Statement: Certification Statement: Based on the above finding, I certify that this patient is confined to the home and needs intermittent long-term care, physical therapy and/or speech therapy, or continues to need occupational therapy.~ This patient is under my care, and I have initiated the establishment of the plan of care.~ This patient will be followed by myself or a community physician who will periodically review the plan of care. Home Meds Active Scripts Apixaban (ELIQUIS) 5 Mg Tablet, 5 MG PO BID for SVC syndrome, #60 TAB 1 Refill Prov:CHRIS BOYCE MD 05/09/21 Prednisone (PREDNISONE ) 10 Mg Tablet, 10 MG PO UD for steroid taper, #12 TAB 0 Refills Take 3 tablets by mouth daily for 2 days, then take 2 tablets by mouth daily for 2 days, then take 1 tablets by mouth daily for 2 days, then stop. Prov:CHRIS BOYCE MD 05/09/21 Amlodipine Besylate (AMLODIPINE BESYLATE) 5 Mg Tablet, 5 MG PO QHS for blood pressure, #30 TAB 1 Refill Prov:CHRIS BOYCE MD 05/09/21 Reported Medications Lisinopril (LISINOPRIL) 10 Mg Tablet, 1 TAB PO DAILY for htn, #30 TAB 5 Refills 05/04/21 Metformin Hcl (METFORMIN HCL) 1,000 Mg Tablet, 1000 MG PO BIDWMEALS for dm, TAB 05/04/21 CHRIS BOYCE MD May 09, 2021 11:35
--- NOTE | 2021-05-09 11:39 | PDOC3 ---
Discharge Summary Visit Information Date of Admission: May 01, 2021 Date of Discharge: May 09, 2021 Final Diagnosis adenocarcinoma lung, metastatic Hypertensive urgency Supra vena cava syndrome, DVT. Heparin gtt Tobacco abuse Obesity BMI 35 Brief Hospital Course Allergies Allergies Coded Allergies Type Severity Reaction Last Updated Verified Anesthetics - Elsi Type- Parabens Allergy Severe CARDIAC ARREST 05/01/21 Yes codeine Adverse Reaction Intermediate MAKES PATIENT CRY 05/05/21 Yes niacin Adverse Reaction Intermediate 05/09/21 Yes Vital Signs Vital Signs Date Time Temp Pulse Resp B/P (MAP) Pulse Ox O2 Delivery O2 Flow Rate FiO2 05/09/21 09:46 69 178/82 05/09/21 08:00 Room Air 05/09/21 07:30 91 05/09/21 07:00 97.4 18 97.4 05/08/21 08:05 2.0 Lab Results Laboratory Tests Test 05/07/21 12:28 05/07/21 13:00 05/07/21 20:39 05/08/21 03:35 Glucose (Fingerstick) 78 mg/dL (70-99) 217 mg/dL (70-99) Heparin Anti-Xa Act, Unfractionated 0.66 IU/mL (0.30-0.70) Sodium Level 136 mmol/L (136-145) Potassium Level 4.0 mmol/L (3.5-5.1) Chloride Level 100 mmol/L (98-107) Carbon Dioxide Level 29 mmol/L (21-32) Anion Gap 7 (6-14) Blood Urea Nitrogen 15 mg/dL (7-20) Creatinine 0.7 mg/dL (0.6-1.0) Estimated GFR (Cockcroft-Gault) 83.2 BUN/Creatinine Ratio 21 (6-20) Glucose Level 95 mg/dL (70-99) Calcium Level 8.2 mg/dL (8.5-10.1) Total Bilirubin 0.2 mg/dL (0.2-1.0) Aspartate Amino Transf (AST/SGOT) 10 U/L (15-37) Alanine Aminotransferase (ALT/SGPT) 25 U/L (14-59) Alkaline Phosphatase 78 U/L (46-116) Total Protein 6.3 g/dL (6.4-8.2) Albumin 2.6 g/dL (3.4-5.0) Albumin/Globulin Ratio 0.7 (1.0-1.7) Test 05/08/21 03:55 05/08/21 07:50 05/08/21 11:47 05/08/21 18:19 White Blood Count 12.5 x10^3/uL (4.0-11.0) Red Blood Count 3.28 x10^6/uL (3.50-5.40) Hemoglobin 9.6 g/dL (12.0-15.5) Hematocrit 29.1 % (36.0-47.0) Mean Corpuscular Volume 89 fL (79-100) Mean Corpuscular Hemoglobin 29 pg (25-35) Mean Corpuscular Hemoglobin Concent 33 g/dL (31-37) Red Cell Distribution Width 17.7 % (11.5-14.5) Platelet Count 305 x10^3/uL (140-400) Neutrophils (%) (Auto) 72 % (31-73) Lymphocytes (%) (Auto) 22 % (24-48) Monocytes (%) (Auto) 6 % (0-9) Eosinophils (%) (Auto) 0 % (0-3) Basophils (%) (Auto) 1 % (0-3) Neutrophils # (Auto) 8.9 x10^3/uL (1.8-7.7) Lymphocytes # (Auto) 2.7 x10^3/uL (1.0-4.8) Monocytes # (Auto) 0.7 x10^3/uL (0.0-1.1) Eosinophils # (Auto) 0.0 x10^3/uL (0.0-0.7) Basophils # (Auto) 0.1 x10^3/uL (0.0-0.2) Heparin Anti-Xa Act, Unfractionated 0.64 IU/mL (0.30-0.70) Glucose (Fingerstick) 76 mg/dL (70-99) 148 mg/dL (70-99) 255 mg/dL (70-99) Test 05/08/21 20:24 05/09/21 07:50 05/09/21 11:25 Glucose (Fingerstick) 265 mg/dL (70-99) 90 mg/dL (70-99) 110 mg/dL (70-99) Laboratory Tests Test 05/08/21 11:47 05/08/21 18:19 05/08/21 20:24 05/09/21 07:50 Glucose (Fingerstick) 148 mg/dL (70-99) 255 mg/dL (70-99) 265 mg/dL (70-99) 90 mg/dL (70-99) Test 05/09/21 11:25 Glucose (Fingerstick) 110 mg/dL (70-99) Brief Hospital Course Ms. Boo is a 70 old female with past medical history of diabetes, hypertension, 55-year of smoking admit with marked bilateral upper extremity swelling and bilateral lower extremity shortness of breath for a last week. NEW SVC syndrome, lung cancer, hip lesion biopsied, ADENOCARCINOMA stent to SVC done 05/08, Port placed 05/09, needs radiation and chemo, lung cancer around SVC PULM, ONC to follow Discharge Information Condition at Discharge: Improved Follow Up: Weeks Disposition/Orders: D/C to Home w/ HH Scheduled Amlodipine Besylate (Amlodipine Besylate) 5 Mg Tablet, 5 MG PO QHS for blood pressure, #30 Ref 1 Prescribed by: CHRIS BOYCE on 05/09/21 1128 Apixaban (Eliquis) 5 Mg Tablet, 5 MG PO BID for SVC syndrome, #60 Ref 1 Prescribed by: CHRIS BOYCE on 05/09/21 1133 Lisinopril (Lisinopril) 10 Mg Tablet, 1 TAB PO DAILY for htn, #30 Ref 5 (Reported) Entered as Reported by: JOELLEN ARANA on 05/04/21920 Last Action: New Order on 05/04/21920 by JOELLEN ARANA Metformin Hcl (Metformin Hcl) 1,000 Mg Tablet, 1,000 MG PO BIDWMEALS for dm, (Reported) Entered as Reported by: JOELLEN ARANA on 05/04/21920 Last Action: New Order on 05/04/21920 by JOELLEN ARANA Prednisone (Prednisone ) 10 Mg Tablet, 10 MG PO UD for steroid taper, #12 Ref 0 Take 3 tablets by mouth daily for 2 days, then take 2 tablets by mouth daily for 2 days, then take 1 tablets by mouth daily for 2 days, then stop. Prescribed by: CHRIS BOYCE on 05/09/21 1130 Patient Instructions Patient Instructions face to face x2 start oral anti-coag, DOAC follow ONc, pULM Justicifation of Admission Dx: Justifications for Admission: Justification of Admission Dx: Yes (SVC) CHRIS BOYCE MD May 09, 2021 11:39
[2021-05-09] MEDS: LABETALOL 20 MG/4 ML DISP.SYRIN. IVP PRN (12:06)
--- NOTE | 2021-05-09 12:28 | NUR ---
SS following up with discharge planning. SS reviewed pt chart and discussed with pt RN. Pt is currently on room air. Pt having port placed today. PT/OT recommended home. Pt accepted on services with [facility], ; fax [phone]. Discharge orders received for home with home healthcare and sent to [facility]. Pt's RN notified.
[2021-05-09] MEDS ORDERED: LIDOCAINE 1%/EPI 1:100,000 20 ML VIAL. ONE (13:41)
[2021-05-09] MEDS ORDERED: fentaNYL PF VIAL 100 MCG/2 ML VIAL ONE (13:50)
[2021-05-09] MEDS ORDERED: MIDAZOLAM HCL/PF 2 MG/2 ML VIAL. ONE (13:50)
[2021-05-09] MEDS ORDERED: LIDOCAINE 1%/EPI 1:100,000 20 ML VIAL. INJ ONE (14:45)
[2021-05-09] MEDS ORDERED: MIDAZOLAM HCL/PF 2 MG/2 ML VIAL. IV ONE (14:45)
[2021-05-09] MEDS ORDERED: fentaNYL PF VIAL 100 MCG/2 ML VIAL IV ONE (14:45)
--- NOTE | 2021-05-09 15:22 | RAD ---
PROCEDURE: Fluoroscopically and ultrasound-guided placement of left internal jugular tunnel central v enous catheter with port (Bard PowerPort, Groshong tip ). Clinical Indication: Large right lung mass. Need for chemotherapy access. SVC syndrome with bilatera l brachiocephalic and SVC stents Discussion: The risks and benefits of the procedure were discussed with the patient and/or their sales and marketing representative. Informed consent was obtained. The patient was brought to the fluoroscopy suite and placed in supine position. A time out procedure was performed. The left neck and chest were prepped and draped using maximum sterile barrier technique including the use of: Current guideline approved cutaneous antisepsis, a large sterile sheet to establish a steril e field. Additionally the towel rolling machine operator wore a hat, mask, sterile gloves, a sterile gown during the proced ure as well as practiced acceptable hand hygiene prior to placing the port. Ultrasound-guided access: Ultrasound evaluation showed the left jugular vein to be patent and compre ssible. 1 % lidocaine with epinephrine was administered to the skin and subcutaneous tissues overlyin g the right neck and chest. Under direct ultrasound guidance a single wall puncture was made followed by tract dilation and placement of a sheath. An ultrasound image was saved and sent to PACS. Next, a n incision was made in an infraclavicular location and a pocket created. The catheter was tunneled between the pocket and the venotomy site. The catheter was advanced through the peel away sheath, un linda fluoroscopic guidance, such that it's tip was in the mid right atrium. The catheter was connected to the port reservoir. The port was accessed and found to flush and aspirate normally. The reservoir was then placed into the subcutaneous pocket. The wound was closed in layers using 4-0 Vicryl sutur e. Dermabond was applied overlying the wound, and venotomy site. The patient tolerated procedure with out immediate complication. Sedation: Conscious sedation was performed for 30 minutes. Sedation was carried out while the patie nt was continually monitored by a member of the Radiology nursing staff. Continual cardiopulmonary m onitoring was carried out during the procedure. The patient tolerated the procedure well and there w ere no immediate complications. Fluoroscopy time: 1 mins Dose area product 3 Kruger centimeter squared Impression: Successful ultrasound and fluoroscopically guided placement of right internal jugular carito cassie central venous catheter with port (Bard PowerPort, Groshong tip). Electronically signed by: Alec Bennett MD (05/09/2021 3:20 PM) [id number]
[2021-05-09] MEDS ORDERED: APIXABAN 5 MG TABLET. PO ONE (16:30)
--- NOTE | 2021-05-09 18:17 | PDOC ---
[employer] PROGRESS NOTE Date of Service DOS: DATE: 05/09/21 TIME: 18:17 Chief Complaint Chief Complaint adenocarcinoma lung, metastatic Hypertensive urgency Supra vena cava syndrome, DVT. Heparin gtt Tobacco abuse Obesity BMI 35 History of Present Illness History of Present Illness 05/09, right arm still swollen, port placed start radiotion and chemo soon transition to DOAC 11 neck and chest much improved, stent to SVC done, IR following will needs port placed before DC to start chemo soon 05/07 stent planned for SVC today hypoglycemia, will stop the lantus insulin, still on steriods, will taper still on heparin gtt, may be able to transition to PO cont current plan home health at [place] Patient is a 62-year-old female with past medical history of diabetes, hypertension, 55-year of smoking who comes in with bilateral upper extremity swelling and bilateral lower extremity shortness of breath for the last week. Apparently patient was seen in [place] 1 week ago for pneumonialike symptoms and she was treated with antibiotics. She was also told that they did scan her and they told her that she had a mass in her lung. She did not follow-up with this. Patient did have a Covid positivity in December and she was having shortness of breath at that time. She does denies have any history of CHF or kidney disease. Patient went to [facility] ER to be evaluated because of her upper extremity swelling. CT of the chest was significant for a right suprahilar mass extending into the mediastinum and supra vena cava occlusion with acute appearing thrombus. For this reason patient was sent over for further evaluation of possible thrombectomy with interventional radiology. Pulmonology and oncology are consulted 05/03/2021 No acute events overnight. Patient seen examined bedside. No complaints the patient at this time. Facial plethora is minimal. Continue on heparin drip. Patient's chart, labs, images were reviewed and discussed with RN 05/04/2021 No acute events overnight. Patient seen examined bedside. Sugars are well controlled on current insulin regimen. Continue with heparin drip. Plan for SVC stent tomorrow with IR and possible lung biopsy. Patient's chart, labs, images were reviewed and discussed with RN 05/05, cont current, biopsy today, lung cancer causes of vena cava syndrome Vitals/I&O Vitals/I&O: Vital Signs Date Time Temp Pulse Resp B/P (MAP) Pulse Ox O2 Delivery O2 Flow Rate FiO2 05/09/21 15:17 94 Room Air 2.0 05/09/21 15:00 97.3 65 16 123/82 (96) 97.3 I & O 05/08/21 05/08/21 05/09/21 14:59 22:59 06:59 Intake Total 360 ml 500 ml 323 ml Balance 360 ml 500 ml 323 ml Physical Exam General: Alert, Oriented X3, Cooperative, No acute distress Heart: Normal S1, Normal S2, No murmurs Lungs: Clear, Other (b lat diminished) Abdomen: Normal bowel sounds, Soft, No tenderness Extremities: Other (Significant swelling of both arms.) Skin: No significant lesion Labs Labs: Laboratory Tests Test 05/08/21 18:19 05/08/21 20:24 05/09/21 07:50 05/09/21 11:25 Glucose (Fingerstick) 255 mg/dL (70-99) 265 mg/dL (70-99) 90 mg/dL (70-99) 110 mg/dL (70-99) Test 05/09/21 16:42 Glucose (Fingerstick) 200 mg/dL (70-99) Comment Review of Relevant I have reviewed the following items dena (where applicable) has been applied. Medications: Current Medications Medications (Trade) Dose Ordered Sig/Rajani Route PRN Reason Start Time Stop Time Status Last Admin Dose Admin Diphenhydramine HCl (Benadryl) 25 mg 1X ONCE PO 05/09/21 11:30 05/09/21 11:31 DC 05/09/21 12:04 Midazolam HCl (Versed) 2 mg 1X ONCE IV 05/09/21 14:45 05/09/21 14:46 DC 05/09/21 14:46 Fentanyl Citrate (Fentanyl 2ml Vial) 50 mcg 1X ONCE IV 05/09/21 14:45 05/09/21 14:46 DC 05/09/21 14:47 Lidocaine/ Epinephrine (LIDOCAINE 1%-EPI 1:100,000 Multi-Dose) 15 ml 1X ONCE INJ 05/09/21 14:45 05/09/21 14:46 DC 05/09/21 14:46 Cefazolin Sodium/ Dextrose 50 ml @ 100 mls/hr 1X ONCE IV 05/09/21 14:45 05/09/21 15:14 DC 05/09/21 14:45 Apixaban (Eliquis) 5 mg 1X ONCE PO 05/09/21 16:30 05/09/21 16:31 DC 05/09/21 17:42 Justifications for Admission Other Justification Right lung mass and hypertensive urgency CHRIS BOYCE MD May 09, 2021 18:17
[2021-05-09] MEDS: cefTRIAXone IV Push 1 GM VIAL. IVP SCH (21:27)
[2021-05-10 02:48] VITALS: BP 163/75
[2021-05-10 07:00] VITALS: BP 165/71
[2021-05-10] MEDS: ALBUTEROL SULFATE 2.5 MG/3 ML NEBU. NEB SCH ×3 (07:33→15:23)
[2021-05-10] MEDS: INSULIN LISPRO 300 UNITS/3 ML VIAL. SQ SCH ×2 (08:00→11:52)
--- NOTE | 2021-05-10 08:27 | PDOC ---
PULMONARY PROGRESS NOTES DATE: 05/10/21 TIME: 08:22 Subjective Status post stenting of bilateral brachiocephalic veins. no increased SOA has occ cough no overnight concerns Vitals Vital Signs Date Time Temp Pulse Resp B/P (MAP) Pulse Ox O2 Delivery O2 Flow Rate FiO2 05/10/21 07:33 98 Room Air 05/10/21 02:48 98.0 62 16 163/75 (104) 98.0 05/09/21 20:00 2.0 ROS: No Nausea, No Chest Pain, No Abdominal Pain, No Increase Cough General: Alert, Oriented X4 HEENT: Other Lungs: Clear, Other (b lat diminished) Cardiovascular: S1, S2 Abdomen: Soft, Non-tender Neuro Exam: Alert Skin: Warm Labs Laboratory Tests Test 05/08/21 11:47 05/08/21 18:19 05/08/21 20:24 05/09/21 07:50 Glucose (Fingerstick) 148 mg/dL (70-99) 255 mg/dL (70-99) 265 mg/dL (70-99) 90 mg/dL (70-99) Test 05/09/21 11:25 05/09/21 16:42 05/09/21 20:16 Glucose (Fingerstick) 110 mg/dL (70-99) 200 mg/dL (70-99) 324 mg/dL (70-99) Laboratory Tests Test 05/09/21 11:25 05/09/21 16:42 05/09/21 20:16 Glucose (Fingerstick) 110 mg/dL (70-99) 200 mg/dL (70-99) 324 mg/dL (70-99) Medications Active Scripts Medications Dose Route/Sig Max Daily Dose Days Date Category Lisinopril 10 Mg Tablet 1 Tab PO DAILY 05/04/21 Reported Metformin Hcl 1,000 Mg Tablet 1,000 Mg PO BIDWMEALS 05/04/21 Reported Impression . IMPRESSION: 1. Acute hypoxemic respiratory failure, multifactorial. 2. Abnormal CT chest revealing a large right upper lobe/mediastinal mass/ svc syndrome/ venous clot subclavian/ brachiocephalic. Biopsy consistent with non- small cell lung cancer 3. Superior vena cava syndrome. 4. 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 Tobacco dependence. 6. Chronic obstructive pulmonary disease./ 55 yrs tobacco use Plan . PLAN Status post biopsy of the lytic lesion from the left pelvis-- pathology positive for non-small cell- special stains pending dc rocephin status post stenting of SVC . s/p Port-A-Cath placement Port-A-Cath is placed. on Eliquis Follow radiation oncology and medical oncology recommendations CT head negative for mets, she could not tolerate MRI. Continue steroids, will slow taper DVT/GI PPX D/W RN Okay to discharge from pulm standpointt. lifelong Eliquis due to hypercoagulable state from malignancy Patient to follow-up with dr daley on June 25 JUAN C MADDOX MD May 10, 2021 08:27
[2021-05-10] MEDS ORDERED: APIXABAN 5 MG TABLET. PO SCH (09:00)
[2021-05-10] MEDS: LISINOPRIL 10 MG TABLET PO SCH (09:11)
[2021-05-10 11:00] VITALS: BP 175/66
[2021-05-10 14:47] VITALS: BP 149/105
--- NOTE | 2021-05-10 16:19 | NUR ---
Discharge Note: JOSE CRUZ ARCHIBALD [address] Discharge instructions and discharge home medications reviewed with Patient and a copy given. All questions have been answered and understanding verbalized. The following instructions and handouts were given: lung cancer, metastatic cancer Q&A, smoking cessation IV discontinued, no complications Patient discharged to home with self care All belongings taken home with patient
== END 2021-05-10 15:50 | disposition home health service (06) | DRG 252 ==
LOC: 6 SOUTH 19:53
PROVIDERS: ADMIT Internal Medicine; ATTEND Internal Medicine
PROC: 07DR3ZX Extraction of Iliac Bone Marrow, Percutaneous Approach, Diagnostic (ICD-10-PCS; 2021-05-05)
PROC: 037 Upper Arteries, Dilation (ICD-10-PCS; 2021-05-08)
PROC: 0JH63XZ Insertion of Tunneled Vascular Access Device into Chest Subcutaneous Tissue and Fascia, Percutaneous Approach (ICD-10-PCS; principal; 2021-05-09)
PROC: 02H633Z Insertion of Infusion Device into Right Atrium, Percutaneous Approach (ICD-10-PCS; 2021-05-09)
PROC: B5181ZA Fluoroscopy of Superior Vena Cava using Low Osmolar Contrast, Guidance (ICD-10-PCS; 2021-05-09)
PROC: B548ZZA Ultrasonography of Superior Vena Cava, Guidance (ICD-10-PCS; 2021-05-09)
PROC: B51M1ZZ Fluoroscopy of Right Upper Extremity Veins using Low Osmolar Contrast (ICD-10-PCS; 2021-05-09)
DX: I87.1 Compression of vein (principal); J96.01 Acute respiratory failure with hypoxia; C34.90 Malignant neoplasm of unspecified part of unspecified bronchus or lung; I82.210 Acute embolism and thrombosis of superior vena cava; C79.51 Secondary malignant neoplasm of bone; I82.623 Acute embolism and thrombosis of deep veins of upper extremity, bilateral; I82.B13 Acute embolism and thrombosis of subclavian vein, bilateral; I16.0 Hypertensive urgency; D64.9 Anemia, unspecified; E11.649 Type 2 diabetes mellitus with hypoglycemia without coma; E66.9 Obesity, unspecified; E78.5 Hyperlipidemia, unspecified; F17.210 Nicotine dependence, cigarettes, uncomplicated; I10 Essential (primary) hypertension; J44.9 Chronic obstructive pulmonary disease, unspecified; J98.09 Other diseases of bronchus, not elsewhere classified; N63.0 Unspecified lump in unspecified breast; Z68.35 Body mass index [BMI] 35.0-35.9, adult; Z79.01 Long term (current) use of anticoagulants; Z80.0 Family history of malignant neoplasm of digestive organs; Z80.1 Family history of malignant neoplasm of trachea, bronchus and lung; Z80.51 Family history of malignant neoplasm of kidney; Z68.34 Body mass index [BMI] 34.0-34.9, adult
CPT/HCPCS: 20225; 36415; 36561; 70470; 75820; 75827; 76937; 77001; 77012; 80048; 80053; 82962; 83735; 84100; 85007; 85025; 85027; 85520; 88307; 88341; 88342; 93005; 94640; 94760; 99152; 99153; 99406; C1713; C1725; C1769; C1892; C1894; J0690; J0696; J1644; J1815; J2250; J2930; J3010; J3475; J3480; J3490; Q9967; 97116-GP; G0378; J7613; Q0163

== ENCOUNTER → 2021-05-13 | Outpatient (CLI) | payer MEDICARE, OTHER ==
[2021-05-10 14:47] VITALS: BP 149/105
[~2021-05-13] MED LIST: AMLO-186 PO; APIX5TAB PO; LISI10TA16 PO; METF10007 PO; PRED-220 PO
[2021-05-13 10:15] LABS: BASO % 0 % (0-3); EOS % 1 % (0-3); HEMATOCRIT 32.1 % (36.0-47.0); HEMOGLOBIN 10.3 g/dL (12.0-15.5); LYMPH # 1.1 x10^3/uL (1.0-4.8); LYMPH % 12 % (24-48); MEAN CORPUSCULAR HEMOGLOBIN 29 pg (25-35); MEAN CORPUSCULAR HGB CONC 32 g/dL (31-37); MEAN CORPUSCULAR VOLUME 91 fL (79-100); MONO # 0.4 x10^3/uL (0.0-1.1); MONO % 5 % (0-9); NEUT # 7.7 x10^3/uL (1.8-7.7); NEUT % 83 % (31-73); PLATELET COUNT 166 x10^3/uL (140-400); RED BLOOD COUNT 3.53 x10^6/uL (3.50-5.40); RED CELL DISTRIBUTION WIDTH 19.8 % (11.5-14.5); WHITE BLOOD COUNT 9.3 x10^3/uL (4.0-11.0)
[2021-05-13 10:27] LABS: ANION GAP 7 (6-14); BLOOD UREA NITROGEN 11 mg/dL (7-20); BUN/CREATININE RATIO 14 (6-20); CALCIUM 8.3 mg/dL (8.5-10.1); CARBON DIOXIDE 32 mmol/L (21-32); CHLORIDE 100 mmol/L (98-107); CREATININE 0.8 mg/dL (0.6-1.0); GFR 71.3; GLUCOSE 106 mg/dL (70-99); SODIUM 139 mmol/L (136-145)
[2021-05-13 10:34] LABS: ALBUMIN 3.1 g/dL (3.4-5.0); ALBUMIN/GLOBULIN RATIO 0.8 (1.0-1.7); ALK PHOS 100 U/L (46-116); ALT (SGPT) 26 U/L (14-59); AST (SGOT) < 5 U/L (15-37); TOTAL BILIRUBIN 0.4 mg/dL (0.2-1.0); TOTAL PROTEIN 7.1 g/dL (6.4-8.2)
== END ==
LOC: ONCLAB 09:32
PROVIDERS: ATTEND Internal Medicine Hematology & Oncology
DX: C34.11 Malignant neoplasm of upper lobe, right bronchus or lung (principal)
CPT/HCPCS: 36415; 80053; 85025

== ENCOUNTER → 2021-05-15 | Outpatient (CLI) | payer MEDICARE, OTHER ==
[2021-05-10 14:47] VITALS: BP 149/105
[2021-05-15 13:54] LABS: BASO # 0.1 x10^3/uL (0.0-0.2); BASO % 1 % (0-3); EOS # 0.1 x10^3/uL (0.0-0.7); EOS % 1 % (0-3); HEMATOCRIT 31.4 % (36.0-47.0); HEMOGLOBIN 10.2 g/dL (12.0-15.5); LYMPH # 1.5 x10^3/uL (1.0-4.8); LYMPH % 17 % (24-48); MEAN CORPUSCULAR HEMOGLOBIN 30 pg (25-35); MEAN CORPUSCULAR HGB CONC 32 g/dL (31-37); MEAN CORPUSCULAR VOLUME 92 fL (79-100); MONO # 0.7 x10^3/uL (0.0-1.1); MONO % 7 % (0-9); NEUT # 6.6 x10^3/uL (1.8-7.7); NEUT % 74 % (31-73); PLATELET COUNT 156 x10^3/uL (140-400); RED BLOOD COUNT 3.43 x10^6/uL (3.50-5.40); WHITE BLOOD COUNT 8.9 x10^3/uL (4.0-11.0)
[2021-05-15 13:58] LABS: CALCIUM 8.2 mg/dL (8.5-10.1); CREATININE 0.8 mg/dL (0.6-1.0); GFR 71.3; POTASSIUM 3.9 mmol/L (3.5-5.1)
[2021-05-15 14:04] LABS: ALBUMIN 2.8 g/dL (3.4-5.0); ALBUMIN/GLOBULIN RATIO 0.7 (1.0-1.7); MAGNESIUM 1.5 mg/dL (1.8-2.4); TOTAL BILIRUBIN 0.3 mg/dL (0.2-1.0); TOTAL PROTEIN 6.7 g/dL (6.4-8.2)
== END ==
LOC: ONCLAB 13:40
PROVIDERS: ATTEND Physician Assistant
DX: C76.3 Malignant neoplasm of pelvis (principal)
CPT/HCPCS: 36415; 80053; 83615; 83735; 85025

== ENCOUNTER → 2021-05-19 | Outpatient (CLI) | payer MEDICARE, OTHER ==
[2021-05-10 14:47] VITALS: BP 149/105
[2021-05-19 10:10] LABS: BASO % 0 % (0-3); EOS # 0.1 x10^3/uL (0.0-0.7); EOS % 1 % (0-3); HEMATOCRIT 31.2 % (36.0-47.0); HEMOGLOBIN 10.1 g/dL (12.0-15.5); LYMPH % 15 % (24-48); MEAN CORPUSCULAR HEMOGLOBIN 29 pg (25-35); MEAN CORPUSCULAR HGB CONC 33 g/dL (31-37); MEAN CORPUSCULAR VOLUME 90 fL (79-100); MONO # 0.1 x10^3/uL (0.0-1.1); MONO % 1 % (0-9); NEUT # 5.1 x10^3/uL (1.8-7.7); NEUT % 82 % (31-73); PLATELET COUNT 160 x10^3/uL (140-400); RED BLOOD COUNT 3.45 x10^6/uL (3.50-5.40); RED CELL DISTRIBUTION WIDTH 19.2 % (11.5-14.5); WHITE BLOOD COUNT 6.3 x10^3/uL (4.0-11.0)
[2021-05-19 10:29] LABS: ALBUMIN 2.8 g/dL (3.4-5.0); ALBUMIN/GLOBULIN RATIO 0.7 (1.0-1.7); CALCIUM 8.1 mg/dL (8.5-10.1); CREATININE 0.6 mg/dL (0.6-1.0); GFR 99.4; POTASSIUM 4.1 mmol/L (3.5-5.1); TOTAL BILIRUBIN 0.6 mg/dL (0.2-1.0); TOTAL PROTEIN 6.7 g/dL (6.4-8.2)
== END ==
LOC: ONCLAB 09:45
PROVIDERS: ATTEND Physician Assistant
DX: C34.11 Malignant neoplasm of upper lobe, right bronchus or lung (principal)
CPT/HCPCS: 36415; 80053; 85025

== ENCOUNTER → 2021-06-30 | Outpatient (CLI) | payer MEDICARE, OTHER ==
[2021-06-10 15:00] VITALS: BP 126/68
[2021-06-30 13:56] LABS: BASO % 1 % (0-3); EOS % 1 % (0-3); HEMATOCRIT 28.2 % (36.0-47.0); HEMOGLOBIN 9.2 g/dL (12.0-15.5); LYMPH # 1.1 x10^3/uL (1.0-4.8); LYMPH % 21 % (24-48); MEAN CORPUSCULAR HEMOGLOBIN 32 pg (25-35); MEAN CORPUSCULAR HGB CONC 33 g/dL (31-37); MEAN CORPUSCULAR VOLUME 99 fL (79-100); MONO # 0.6 x10^3/uL (0.0-1.1); MONO % 12 % (0-9); NEUT # 3.3 x10^3/uL (1.8-7.7); NEUT % 65 % (31-73); PLATELET COUNT 177 x10^3/uL (140-400); RED BLOOD COUNT 2.86 x10^6/uL (3.50-5.40); RED CELL DISTRIBUTION WIDTH 24.7 % (11.5-14.5); WHITE BLOOD COUNT 5.2 x10^3/uL (4.0-11.0)
[2021-06-30 14:17] LABS: ALBUMIN 2.8 g/dL (3.4-5.0); ALBUMIN/GLOBULIN RATIO 0.7 (1.0-1.7); CALCIUM 7.8 mg/dL (8.5-10.1); CREATININE 0.9 mg/dL (0.6-1.0); GFR 62.3; POTASSIUM 4.1 mmol/L (3.5-5.1); TOTAL BILIRUBIN 0.3 mg/dL (0.2-1.0); TOTAL PROTEIN 6.8 g/dL (6.4-8.2)
[2021-06-30 15:32] LABS: ANISOCYTOSIS MOD; PLT ESTIMATE ADEQUATE (ADEQUATE); POLYCHROMASIA SLIGHT
== END ==
LOC: ONCLAB 13:38
PROVIDERS: ATTEND Internal Medicine Hematology & Oncology
DX: C34.11 Malignant neoplasm of upper lobe, right bronchus or lung (principal); C76.3 Malignant neoplasm of pelvis
CPT/HCPCS: 36415; 80053; 85025

== ENCOUNTER → 2021-07-03 | Outpatient (CLI) | payer MEDICARE, OTHER ==
[2021-06-10 15:00] VITALS: BP 126/68
[2021-07-03 12:12] LABS: BASO % 0 % (0-3); EOS % 1 % (0-3); HEMATOCRIT 28.8 % (36.0-47.0); HEMOGLOBIN 9.7 g/dL (12.0-15.5); LYMPH # 1.7 x10^3/uL (1.0-4.8); LYMPH % 22 % (24-48); MEAN CORPUSCULAR HEMOGLOBIN 32 pg (25-35); MEAN CORPUSCULAR HGB CONC 34 g/dL (31-37); MEAN CORPUSCULAR VOLUME 96 fL (79-100); MONO % 12 % (0-9); NEUT # 5.1 x10^3/uL (1.8-7.7); NEUT % 65 % (31-73); PLATELET COUNT 168 x10^3/uL (140-400); RED CELL DISTRIBUTION WIDTH 23.1 % (11.5-14.5); WHITE BLOOD COUNT 7.8 x10^3/uL (4.0-11.0)
[2021-07-03 12:18] LABS: CALCIUM 8.2 mg/dL (8.5-10.1); CREATININE 0.8 mg/dL (0.6-1.0); GFR 71.3
[2021-07-03 12:37] LABS: ALBUMIN/GLOBULIN RATIO 0.7 (1.0-1.7); TOTAL BILIRUBIN 0.5 mg/dL (0.2-1.0); TOTAL PROTEIN 7.5 g/dL (6.4-8.2)
== END ==
LOC: ONCLAB 11:53
PROVIDERS: ATTEND Internal Medicine Hematology & Oncology
DX: C34.11 Malignant neoplasm of upper lobe, right bronchus or lung (principal); C76.3 Malignant neoplasm of pelvis
CPT/HCPCS: 36415; 80053; 82728; 83540; 83550; 85025

== ENCOUNTER → 2021-07-10 | Outpatient (CLI) | payer MEDICARE, OTHER ==
[2021-06-10 15:00] VITALS: BP 126/68
[2021-07-10 10:35] LABS: BASO % 0 % (0-3); EOS % 1 % (0-3); HEMATOCRIT 23.7 % (36.0-47.0); HEMOGLOBIN 7.8 g/dL (12.0-15.5); LYMPH # 0.6 x10^3/uL (1.0-4.8); LYMPH % 60 % (24-48); MEAN CORPUSCULAR HEMOGLOBIN 32 pg (25-35); MEAN CORPUSCULAR HGB CONC 33 g/dL (31-37); MEAN CORPUSCULAR VOLUME 96 fL (79-100); MONO % 4 % (0-9); NEUT # 0.3 x10^3/uL (1.8-7.7); NEUT % 35 % (31-73); PLATELET COUNT 108 x10^3/uL (140-400); RED BLOOD COUNT 2.47 x10^6/uL (3.50-5.40); RED CELL DISTRIBUTION WIDTH 19.3 % (11.5-14.5)
[2021-07-10 10:47] LABS: CREATININE 0.7 mg/dL (0.6-1.0); GFR 83.2; POTASSIUM 3.8 mmol/L (3.5-5.1)
[2021-07-10 10:54] LABS: ALBUMIN 2.8 g/dL (3.4-5.0); ALBUMIN/GLOBULIN RATIO 0.6 (1.0-1.7); TOTAL BILIRUBIN 0.7 mg/dL (0.2-1.0); TOTAL PROTEIN 7.4 g/dL (6.4-8.2)
[2021-07-10 11:01] LABS: % EOS 2 % (0-5); % LYMPHS 62 % (24-48); % MONOS 6 % (0-10); % SEGS 30 % (35-66); PLT ESTIMATE DECREASED (ADEQUATE)
[2021-07-10 11:02] LABS: ANISOCYTOSIS SLIGHT
== END ==
LOC: ONCLAB 10:10
PROVIDERS: ATTEND Internal Medicine Hematology & Oncology
DX: C34.11 Malignant neoplasm of upper lobe, right bronchus or lung (principal)
CPT/HCPCS: 36415; 80053; 85007; 85025

== ENCOUNTER → 2021-07-16 | Outpatient (CLI) | payer MEDICARE, OTHER ==
[2021-06-10 15:00] VITALS: BP 126/68
[2021-07-16 08:52] LABS: BASO % 0 % (0-3); EOS % 0 % (0-3); HEMOGLOBIN 7.1 g/dL (12.0-15.5); LYMPH # 1.9 x10^3/uL (1.0-4.8); LYMPH % 20 % (24-48); MEAN CORPUSCULAR HEMOGLOBIN 32 pg (25-35); MEAN CORPUSCULAR HGB CONC 34 g/dL (31-37); MEAN CORPUSCULAR VOLUME 93 fL (79-100); MONO # 0.8 x10^3/uL (0.0-1.1); MONO % 8 % (0-9); NEUT # 7.1 x10^3/uL (1.8-7.7); NEUT % 72 % (31-73); RED BLOOD COUNT 2.24 x10^6/uL (3.50-5.40); RED CELL DISTRIBUTION WIDTH 18.8 % (11.5-14.5); WHITE BLOOD COUNT 9.9 x10^3/uL (4.0-11.0)
[2021-07-16 08:56] LABS: HEMATOCRIT 20.8 % (36.0-47.0); PLATELET COUNT 25 x10^3/uL (140-400)
[2021-07-16 09:12] LABS: ALBUMIN 2.8 g/dL (3.4-5.0); ALBUMIN/GLOBULIN RATIO 0.7 (1.0-1.7); CALCIUM 7.6 mg/dL (8.5-10.1); CREATININE 0.7 mg/dL (0.6-1.0); GFR 83.2; POTASSIUM 4.1 mmol/L (3.5-5.1); TOTAL BILIRUBIN 0.3 mg/dL (0.2-1.0); TOTAL PROTEIN 6.7 g/dL (6.4-8.2)
== END ==
LOC: ONCLAB 08:24
PROVIDERS: ATTEND Internal Medicine Hematology & Oncology
DX: C34.11 Malignant neoplasm of upper lobe, right bronchus or lung (principal); C76.3 Malignant neoplasm of pelvis
CPT/HCPCS: 36415; 80053; 85025

== ENCOUNTER → 2021-07-16 | Outpatient (CLI) | payer MEDICARE, OTHER ==
[~2021-07-16] MED LIST changes: +CEPH500T PO; +FLUC200T4 PO; +FOLI0.8C PO; +HEPARIN PF 500 UNIT/5 ML DISP.SYRIN. IVP ONE; +NYST15CR TP
[2021-07-16 12:50] LABS: HEMOGLOBIN 6.5 g/dL (12.0-15.5)
[2021-07-16 14:05] VITALS: BP 91/48
[2021-07-16 14:20] VITALS: BP 110/48
[2021-07-16 15:16] VITALS: BP 113/49
[2021-07-16 16:18] VITALS: BP 108/61
[2021-07-16 16:20] VITALS: BP 108/61
== END | disposition home or self-care (01) ==
LOC: OPS 12:16
PROVIDERS: ATTEND Internal Medicine Hematology & Oncology
DX: D64.9 Anemia, unspecified (principal); C76.3 Malignant neoplasm of pelvis; I10 Essential (primary) hypertension; J44.9 Chronic obstructive pulmonary disease, unspecified; E78.5 Hyperlipidemia, unspecified; E11.9 Type 2 diabetes mellitus without complications; F17.210 Nicotine dependence, cigarettes, uncomplicated; Z86.718 Personal history of other venous thrombosis and embolism; Z88.4 Allergy status to anesthetic agent; Z88.1 Allergy status to other antibiotic agents; Z79.01 Long term (current) use of anticoagulants; Z85.118 Personal history of other malignant neoplasm of bronchus and lung
CPT/HCPCS: 36415; 36430; 85014; 85018; 86850; 86900; 86901; 86920; J1642; P9016

== ENCOUNTER 2021-07-20 12:25 | Emergency (ER) | payer MEDICARE, OTHER ==
[~2021-07-20] VITALS: Ht 160 cm; Wt 83.1 kg
[~2021-07-20 12:25] MED LIST changes: -CEPH500T PO; -FLUC200T4 PO; -FOLI0.8C PO; -HEPARIN PF 500 UNIT/5 ML DISP.SYRIN. IVP ONE; -NYST15CR TP
[2021-07-20 13:07] LABS: BASO # 0.1 x10^3/uL (0.0-0.2); BASO % 0 % (0-3); EOS % 0 % (0-3); HEMATOCRIT 24.1 % (36.0-47.0); HEMOGLOBIN 8.3 g/dL (12.0-15.5); LYMPH # 1.7 x10^3/uL (1.0-4.8); LYMPH % 10 % (24-48); MEAN CORPUSCULAR HEMOGLOBIN 32 pg (25-35); MEAN CORPUSCULAR HGB CONC 34 g/dL (31-37); MEAN CORPUSCULAR VOLUME 94 fL (79-100); MONO # 1.1 x10^3/uL (0.0-1.1); MONO % 6 % (0-9); NEUT # 14.3 x10^3/uL (1.8-7.7); NEUT % 83 % (31-73); PLATELET COUNT 105 x10^3/uL (140-400); RED BLOOD COUNT 2.57 x10^6/uL (3.50-5.40); RED CELL DISTRIBUTION WIDTH 18.5 % (11.5-14.5); WHITE BLOOD COUNT 17.2 x10^3/uL (4.0-11.0)
[2021-07-20 13:19] LABS: CALCIUM 7.4 mg/dL (8.5-10.1); CREATININE 0.8 mg/dL (0.6-1.0); GFR 71.3
[2021-07-20 13:25] LABS: INFLUENZA A PATIENT NEGATIVE (NEGATIVE); INFLUENZA B PATIENT NEGATIVE (NEGATIVE)
--- NOTE | 2021-07-20 13:31 | ED.ADGEN ---
Past Medical History Past Surgical History: No Surgical History Smoking Status: Former Smoker Alcohol Use: Rarely General Adult EDM: Chief Complaint: DIARRHEA HPI: HPI: Patient is a 70 year old female coming in via EMS from home for diarrhea. Patient states that since this morning she has had 5 episodes of profuse watery diarrhea. Denies any vomiting. States there is been no blood or melena. That she had some left lower quadrant abdominal pain just prior to the diarrhea that is resolved now. Patient is recently been treated for a urinary tract infection and just finished her antibiotics, states she is taking Keflex and had another antibiotic but did not understand that she supposed to take them at the same time, and is unsure what antibiotic she was on but says it starts with an "8".. Denies any history of C. difficile. Denies any recent travel, raw or undercooked food, sick contacts. Patient has a history significant for adenocarcinoma of the lung and is currently receiving chemotherapy, last infusion was 4 days ago. Review of Systems: Review of Systems: All other systems within normal limits except for as noted in the HPI Current Medications: Current Medications Medications (Trade) Dose Ordered Sig/Rajani Start Time Stop Time Status Last Admin Dose Admin Magnesium Sulfate 100 ml @ 50 mls/hr 1X ONCE 07/20/21 15:45 07/20/21 17:44 07/20/21 15:49 50 MLS/HR Allergies: Allergies: Allergies Coded Allergies Type Severity Reaction Last Updated Verified Anesthetics - Elsi Type- Parabens Allergy Severe CARDIAC ARREST 07/20/21 Yes niacin Adverse Reaction Intermediate 07/20/21 Yes Physical Exam: PE: Constitutional: Well developed, well nourished, no acute distress, non-toxic appearance. [] HENT: Normocephalic, atraumatic, bilateral external ears normal, nose normal. [] Eyes: PERRLA, conjunctiva normal, no discharge. [] Neck: No rigidity, supple, no stridor. [] Cardiovascular: Regular rate and rhythm, brisk cap refill [] Lungs & Thorax: Non labored symmetric respirations, no tachypnea or respiratory distress [] Abdomen: Soft, nondistended, nontender to palpation. Skin: Warm, dry, no erythema, no rash. [] Back: Unremarkable Extremities: No deformities, range of motion grossly intact, no lower extremity edema [] Neurologic: Alert and oriented X 3, no focal deficits noted. [] Psychologic: Affect normal, judgement normal, mood normal. [] Current Patient Data: Labs: Laboratory Tests Test 07/20/21 12:40 07/20/21 12:55 07/20/21 15:44 White Blood Count 17.2 x10^3/uL (4.0-11.0) H Red Blood Count 2.57 x10^6/uL (3.50-5.40) L Hemoglobin 8.3 g/dL (12.0-15.5) L Hematocrit 24.1 % (36.0-47.0) L Mean Corpuscular Volume 94 fL (79-100) Mean Corpuscular Hemoglobin 32 pg (25-35) Mean Corpuscular Hemoglobin Concent 34 g/dL (31-37) Red Cell Distribution Width 18.5 % (11.5-14.5) H Platelet Count 105 x10^3/uL (140-400) L Neutrophils (%) (Auto) 83 % (31-73) H Lymphocytes (%) (Auto) 10 % (24-48) L Monocytes (%) (Auto) 6 % (0-9) Eosinophils (%) (Auto) 0 % (0-3) Basophils (%) (Auto) 0 % (0-3) Neutrophils # (Auto) 14.3 x10^3/uL (1.8-7.7) H Lymphocytes # (Auto) 1.7 x10^3/uL (1.0-4.8) Monocytes # (Auto) 1.1 x10^3/uL (0.0-1.1) Eosinophils # (Auto) 0.0 x10^3/uL (0.0-0.7) Basophils # (Auto) 0.1 x10^3/uL (0.0-0.2) Segmented Neutrophils % 69 % (35-66) H Band Neutrophils % 9 % (0-9) Lymphocytes % 17 % (24-48) L Monocytes % 3 % (0-10) Eosinophils % 1 % (0-5) Myelocytes % 1 % (0-0) H Toxic Granulation Slight Dohle Bodies Present Platelet Estimate Decreased (ADEQUATE) Anisocytosis Slight Sodium Level 140 mmol/L (136-145) Potassium Level 4.0 mmol/L (3.5-5.1) Chloride Level 100 mmol/L (98-107) Carbon Dioxide Level 30 mmol/L (21-32) Anion Gap 10 (6-14) Blood Urea Nitrogen 9 mg/dL (7-20) Creatinine 0.8 mg/dL (0.6-1.0) Estimated GFR (Cockcroft-Gault) 71.3 BUN/Creatinine Ratio 11 (6-20) Glucose Level 128 mg/dL (70-99) H Lactic Acid Level 1.6 mmol/L (0.4-2.0) Calcium Level 7.4 mg/dL (8.5-10.1) L Magnesium Level 1.0 mg/dL (1.8-2.4) L Total Bilirubin 0.4 mg/dL (0.2-1.0) Aspartate Amino Transferase (AST) 13 U/L (15-37) L Alanine Aminotransferase (ALT) 28 U/L (14-59) Alkaline Phosphatase 145 U/L (46-116) H Total Protein 7.3 g/dL (6.4-8.2) Albumin 2.8 g/dL (3.4-5.0) L Albumin/Globulin Ratio 0.6 (1.0-1.7) L Lipase 44 U/L (73-393) L Influenza Type A Antigen Negative (NEGATIVE) Influenza Type B Antigen Negative (NEGATIVE) SARS-CoV-2 Antigen (Rapid) Negative (NEGATIVE) Urine Collection Type Unknown Urine Color Clarice Urine Clarity Clear Urine pH 5.5 (<5.0-8.0) Urine Specific [place] 1.020 (1.000-1.030) Urine Protein Negative mg/dL (NEG-TRACE) Urine Glucose (UA) Negative mg/dL (NEG) Urine Ketones (Stick) Trace mg/dL (NEG) Urine Blood Negative (NEG) Urine Nitrite Negative (NEG) Urine Bilirubin Small (NEG) Urine Urobilinogen Dipstick 1.0 mg/dL (0.2 mg/dL) Urine Leukocyte Esterase Negative (NEG) Urine RBC 0 /HPF (0-2) Urine WBC Occ /HPF (0-4) Urine Squamous Epithelial Cells Mod /LPF Urine Bacteria Few /HPF (0-FEW) Urine Mucus Mod /LPF Laboratory Tests 07/20/21 12:40 Laboratory Tests 07/20/21 12:40 Vital Signs: Vital Signs Date Time Temp Pulse Resp B/P (MAP) Pulse Ox O2 Delivery O2 Flow Rate FiO2 07/20/21 16:48 112 21 111/58 (75) 82 Room Air 07/20/21 12:25 97.9 97.9 EKG: EKG: [] Heart Score: C/O Chest Pain: No Risk Factors: Risk Factors: DM, Current or recent (<one month) smoker, HTN, HLP, family history of CAD, obesity. Risk Scores: Score 0 - 3: 2.5% MACE over next 6 weeks - Discharge Home Score 4 - 6: 20.3% MACE over next 6 weeks - Admit for Clinical Observation Score 7 - 10: 72.7% MACE over next 6 weeks - Early Invasive Strategies Radiology/Procedures: Radiology/Procedures: [] Course & Med Decision Making: Course & Med Decision Making Pertinent Labs and Imaging studies reviewed. (See chart for details) Patient states she feels that the diarrhea episode has passed. Is tolerating p.o. Discussed with Dr. Pooja hurst, her oncologist, some of the medications she is on can account for her white count. She has no signs of dehydration. Patient's oncologist states that if she is feeling better she can be discharged home and his office will call them in the morning for prompt follow-up. Low magnesium replaced IV in the emergency department. Patient tolerated infusion well [] Dragon Disclaimer: Dragon Disclaimer: This electronic medical record was generated, in whole or in part, using a voice recognition dictation system. Departure Departure Impression: Primary Impression: Diarrhea Additional Impression: Hypomagnesemia Condition: IMPROVED Referrals: OTONIEL CAIN (PCP) Patient Instructions: Diet for Diarrhea, Adult Additional Instructions: Your primary care provider will call you in the morning to see how you are doing and provide follow-up appointment. Drink plenty of fluids and follow brat diet instructions provided. Can also take antidiarrheal medicines as needed for recurrent diarrhea symptoms. Problem Qualifiers NANI YAÑEZ MD Jul 20, 2021 13:31
[2021-07-20 13:34] LABS: ALBUMIN 2.8 g/dL (3.4-5.0); ALBUMIN/GLOBULIN RATIO 0.6 (1.0-1.7); TOTAL BILIRUBIN 0.4 mg/dL (0.2-1.0); TOTAL PROTEIN 7.3 g/dL (6.4-8.2)
[2021-07-20 13:51] LABS: % BANDS 9 % (0-9); % EOS 1 % (0-5); % LYMPHS 17 % (24-48); % MONOS 3 % (0-10); % MYELOS 1 % (0-0); % SEGS 69 % (35-66); ANISOCYTOSIS SLIGHT; PLT ESTIMATE DECREASED (ADEQUATE)
[2021-07-20 13:52] LABS: TOXIC GRANULATION SLIGHT
[2021-07-20] MEDS ORDERED: MAGNESIUM SULFATE 2GM 50 ML IV ONE (15:15)
[2021-07-20] MEDS ORDERED: MAGNESIUM SULFATE 4GM 100 ML IV ONE (15:45)
[2021-07-20 16:08] LABS: BILIRUBIN,URINE SMALL (NEG); CLARITY,URINE CLEAR; COLOR,URINE AMBER; NITRITE,URINE NEGATIVE (NEG); PH,URINE 5.5 (<5.0-8.0); PROTEIN,URINE NEGATIVE (NEG-TRACE)
[2021-07-20 16:15] LABS: BACTERIA,URINE FEW /HPF (0-FEW); RBC,URINE 0 /HPF (0-2); WBC,URINE OCC /HPF (0-4)
[2021-07-20 17:54] VITALS: BP 119/59
--- NOTE | 2021-07-21 17:30 | NUR ---
IP: Attempted to contact pt concerning covid results. No answer, left a voicemail to return the call. Addendum: 07/21/21 at 1738 by KERRY VALENZUELA RN Pt returned my call. Informed her of negative covid test. Pt verbalized understanding.
[2021-07-23] MEDS ORDERED: FLUC200T4 PO (09:11)
== END 2021-07-20 18:10 | disposition left against medical advice (07) ==
LOC: ER 12:25
DX: R19.7 Diarrhea, unspecified (principal); E83.42 Hypomagnesemia; Z20.822 Contact with and (suspected) exposure to COVID-19; Z88.4 Allergy status to anesthetic agent; Z88.1 Allergy status to other antibiotic agents
CPT/HCPCS: 36415; 80053; 81001; 83605; 83690; 83735; 85007; 85025; 87040; 87428; 96365; 96366; 99285; J3475; U0003; U0005

== ENCOUNTER 2021-07-23 08:40 | Outpatient (CLI) | payer MEDICARE, OTHER ==
[~2021-07-23] VITALS: Ht 160 cm; Wt 85.0 kg
[2021-07-23 09:07] VITALS: BP 115/62
[2021-07-23] MEDS ORDERED: LIDOCAINE WITH 8.4% SOD BICARB 3 ML DISP.SYRIN. ONE (09:08)
[2021-07-23] MEDS ORDERED: IOHEXOL 240 MG/ML 100 ML VIAL. ONE (09:08)
[2021-07-23] MEDS ORDERED: FOLI0.8C PO (09:11)
[2021-07-23] MEDS ORDERED: FLUC200T6 PO (09:11)
[2021-07-23] MEDS ORDERED: CEPH500T PO (09:11)
[2021-07-23] MEDS ORDERED: NYST15CR TP (09:12)
[2021-07-23 09:27] LABS: PROTHROMBIN TIME PATIENT 15.7 SEC (11.7-14.0)
[2021-07-23] MEDS ORDERED: LIDOCAINE 1%/EPI 1:100,000 20 ML VIAL. ONE (09:33)
[2021-07-23] MEDS ORDERED: MIDAZOLAM HCL/PF 2 MG/2 ML VIAL. ONE (09:44)
[2021-07-23] MEDS ORDERED: HEPARIN for IV BOLUS 10,000 UNIT/10 ML VIAL. ONE (09:44)
[2021-07-23] MEDS ORDERED: fentaNYL PF VIAL 100 MCG/2 ML VIAL ONE (09:44)
[2021-07-23] MEDS ORDERED: MIDAZOLAM HCL/PF 2 MG/2 ML VIAL. IV ONE (10:00)
[2021-07-23] MEDS ORDERED: LIDOCAINE 1%/EPI 1:100,000 20 ML VIAL. INJ ONE (10:00)
[2021-07-23] MEDS ORDERED: IODIXANOL 320 MG/ML 100 ML VIAL. IART ONE (10:00)
[2021-07-23] MEDS ORDERED: fentaNYL PF VIAL 100 MCG/2 ML VIAL IV ONE (10:00)
[2021-07-23] MEDS ORDERED: HEPARIN for IV BOLUS 10,000 UNIT/10 ML VIAL. IV ONE (10:30)
[2021-07-23] MEDS ORDERED: IODIXANOL 320 MG/ML 50ML VIAL. ONE (10:34)
[2021-07-23] MEDS ORDERED: IOHEXOL 240 MG/ML 100 ML VIAL. IV ONE (10:45)
[2021-07-23] MEDS ORDERED: CONTRAST GIVEN. MC PRN (11:00)
[2021-07-23] MEDS ORDERED: HEPARIN PF 500 UNIT/5 ML DISP.SYRIN. IVP ONE ×2 (11:10→11:15)
[2021-07-23 11:22] VITALS: BP 114/85
[2021-07-23 11:40] VITALS: BP 121/72
[2021-07-23 12:10] VITALS: BP 111/67
[2021-07-23 12:25] VITALS: BP 105/78
--- NOTE | 2021-07-23 13:00 | NUR ---
pt discharged to home with family in private vehicle. Pt ambulated and tolerated PO
--- NOTE | 2021-07-23 14:44 | RAD ---
07/23/2021 1. Left brachiocephalic and superior venacavogram 2. Balloon angioplasty, left brachiocephalic vein, in-stent narrowing 3. Placement of additional self expanding stent, left brachiocephalic vein and SVC 4. Balloon angioplasty left brachiocephalic vein 5. replacement of left Internal jugular port Indication: Bilateral brachiocephalic and SVC stents, stents appear to be occluded secondary to compr ession from mediastinal tumor Consent: The procedure was explained in its entirety to the patient or the patients designated repres entative by a member of the treatment team, including a discussion of the risks, benefits and commonl y accepted alternatives to the procedure, as well as the expected consequences of no therapy whatsoev er. Discussion of the risks included, but was not limited to, those that are most frequent and thos e that are rare but possibly severe or life-threatening, as well as the possibility of unforeseen com plications. The left neck and chest was prepped using maximum sterile barrier technique. 1% lidocaine was adminis tered for local anesthesia. A small incision was made overlying the pre-existing left internal jugula r port reservoir. The reservoir was removed. A wire was advanced through the catheter into the IVC. T he catheter was removed over the wire. An 8 Romansh sheath was placed. Venograms were obtained initial ly from the patient's peripheral IV demonstrating nonfilling of the left brachiocephalic vein and mul tiple large collaterals. Venograms were then obtained through the sheath demonstrating narrowing of t he left brachiocephalic vein occlusion of the left brachiocephalic and SVC stent. Balloon angioplasty was performed with a combination of 12 mm and 8 mm balloons which improved flow the result of persis tent narrowing or focal left cephalic stent. Subsequently a second 12 mm of expanding stent was advan dada to the area of stenosis and deployed. Repeat dilatation with a 12 mm balloon was performed ultima tely resulting in significantly improved morphology and flow. A guidewire was replaced into the IVC. The port catheter was advanced to the cavoatrial junction. This was connected to a new reservoir and placed into the pocket. Was closed in layers using 4-0 Vicryl suture. Total fluoroscopy time: 11.6 minutes Dose area product 210 Kruger centimeter squared Sedation: The procedure was performed under conscious sedation including continuous cardiopulmonary m onitoring via a dedicated sedation nurse. 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 Replacement of a left internal jugular central venous line with port Electronically signed by: Alec Bennett MD (07/23/2021 2:42 PM) [id number]
== END 2021-07-23 13:01 | disposition home or self-care (01) ==
LOC: INTRAD 08:40
PROVIDERS: ATTEND Internal Medicine Hematology & Oncology
DX: T82.858A Stenosis of other vascular prosthetic devices, implants and grafts, initial encounter (principal); I73.9 Peripheral vascular disease, unspecified; I10 Essential (primary) hypertension; I48.91 Unspecified atrial fibrillation; J44.9 Chronic obstructive pulmonary disease, unspecified; E11.9 Type 2 diabetes mellitus without complications; M19.90 Unspecified osteoarthritis, unspecified site; Z90.710 Acquired absence of both cervix and uterus; Z98.890 Other specified postprocedural states; Z87.891 Personal history of nicotine dependence; Z79.84 Long term (current) use of oral hypoglycemic drugs; Z79.899 Other long term (current) drug therapy; Z88.8 Allergy status to other drugs, medicaments and biological substances; Y83.8 Other surgical procedures as the cause of abnormal reaction of the patient, or of later complication, without mention of misadventure at the time of the procedure
CPT/HCPCS: 36415; 36582; 37238; 75820; 75827; 77001; 85610; 99152; 99153; C1725; C1769; C1885; C1894; J1642; J1644; J2250; J3010; J3490; Q9966

== ENCOUNTER → 2021-07-31 | Outpatient (CLI) | payer MEDICARE, OTHER ==
[2021-07-23 12:25] VITALS: BP 105/78
[~2021-07-31] MED LIST changes: +CEPH500T PO; +FLUC200T6 PO; +FOLI0.8C PO; +NYST15CR TP
[2021-07-31 11:13] LABS: BASO # 0.1 x10^3/uL (0.0-0.2); BASO % 1 % (0-3); EOS % 0 % (0-3); HEMATOCRIT 25.1 % (36.0-47.0); HEMOGLOBIN 8.3 g/dL (12.0-15.5); LYMPH # 1.3 x10^3/uL (1.0-4.8); LYMPH % 16 % (24-48); MEAN CORPUSCULAR HEMOGLOBIN 33 pg (25-35); MEAN CORPUSCULAR HGB CONC 33 g/dL (31-37); MEAN CORPUSCULAR VOLUME 99 fL (79-100); MONO # 1.2 x10^3/uL (0.0-1.1); MONO % 14 % (0-9); NEUT # 5.8 x10^3/uL (1.8-7.7); NEUT % 69 % (31-73); PLATELET COUNT 275 x10^3/uL (140-400); RED BLOOD COUNT 2.53 x10^6/uL (3.50-5.40); RED CELL DISTRIBUTION WIDTH 23.2 % (11.5-14.5); WHITE BLOOD COUNT 8.4 x10^3/uL (4.0-11.0)
[2021-07-31 11:21] LABS: CALCIUM 8.2 mg/dL (8.5-10.1); CREATININE 0.7 mg/dL (0.6-1.0); GFR 83.2; POTASSIUM 4.2 mmol/L (3.5-5.1)
[2021-07-31 11:26] LABS: ALBUMIN 2.8 g/dL (3.4-5.0); ALBUMIN/GLOBULIN RATIO 0.6 (1.0-1.7); TOTAL BILIRUBIN 0.3 mg/dL (0.2-1.0); TOTAL PROTEIN 7.8 g/dL (6.4-8.2)
[2021-07-31 12:36] LABS: PLT ESTIMATE ADEQUATE (ADEQUATE)
[2021-07-31 12:37] LABS: ANISOCYTOSIS MOD; OVALOCYTES FEW; TEAR DROP CELLS FEW
[2021-07-31 12:38] LABS: POLYCHROMASIA MOD
== END ==
LOC: ONCLAB 10:52
PROVIDERS: ATTEND Internal Medicine Hematology & Oncology
DX: C76.3 Malignant neoplasm of pelvis (principal)
CPT/HCPCS: 36415; 80053; 85025

== ENCOUNTER → 2021-08-06 | Outpatient (CLI) | payer MEDICARE, OTHER ==
[2021-07-23 12:25] VITALS: BP 105/78
[2021-08-06 13:40] LABS: CALCIUM 7.3 mg/dL (8.5-10.1); CREATININE 0.7 mg/dL (0.6-1.0); GFR 83.2; POTASSIUM 4.5 mmol/L (3.5-5.1)
[2021-08-06 13:41] LABS: BASO % 0 % (0-3); EOS % 0 % (0-3); HEMATOCRIT 20.8 % (36.0-47.0); LYMPH # 0.8 x10^3/uL (1.0-4.8); LYMPH % 24 % (24-48); MEAN CORPUSCULAR HEMOGLOBIN 33 pg (25-35); MEAN CORPUSCULAR HGB CONC 34 g/dL (31-37); MEAN CORPUSCULAR VOLUME 97 fL (79-100); MONO # 0.1 x10^3/uL (0.0-1.1); MONO % 3 % (0-9); NEUT # 2.4 x10^3/uL (1.8-7.7); NEUT % 72 % (31-73); PLATELET COUNT 176 x10^3/uL (140-400); RED BLOOD COUNT 2.13 x10^6/uL (3.50-5.40); RED CELL DISTRIBUTION WIDTH 21.2 % (11.5-14.5); WHITE BLOOD COUNT 3.3 x10^3/uL (4.0-11.0)
[2021-08-06 13:46] LABS: ALBUMIN 2.4 g/dL (3.4-5.0); ALBUMIN/GLOBULIN RATIO 0.5 (1.0-1.7); TOTAL BILIRUBIN 0.3 mg/dL (0.2-1.0); TOTAL PROTEIN 7.4 g/dL (6.4-8.2)
== END ==
LOC: ONCLAB 13:12
PROVIDERS: ATTEND Internal Medicine Hematology & Oncology
DX: C34.11 Malignant neoplasm of upper lobe, right bronchus or lung (principal); D64.81 Anemia due to antineoplastic chemotherapy
CPT/HCPCS: 36415; 80053; 82607; 82746; 85025

== ENCOUNTER → 2021-08-13 | Outpatient (CLI) | payer MEDICARE, OTHER ==
[2021-08-07 13:52] VITALS: BP 116/63
[2021-08-13 13:22] LABS: BASO # 0.1 x10^3/uL (0.0-0.2); BASO % 1 % (0-3); EOS # 0.1 x10^3/uL (0.0-0.7); EOS % 0 % (0-3); HEMATOCRIT 20.1 % (36.0-47.0); LYMPH % 9 % (24-48); MEAN CORPUSCULAR HEMOGLOBIN 32 pg (25-35); MEAN CORPUSCULAR HGB CONC 33 g/dL (31-37); MEAN CORPUSCULAR VOLUME 98 fL (79-100); MONO # 1.1 x10^3/uL (0.0-1.1); MONO % 5 % (0-9); NEUT # 18.5 x10^3/uL (1.8-7.7); NEUT % 85 % (31-73); PLATELET COUNT 52 x10^3/uL (140-400); RED BLOOD COUNT 2.04 x10^6/uL (3.50-5.40); RED CELL DISTRIBUTION WIDTH 19.6 % (11.5-14.5); WHITE BLOOD COUNT 21.8 x10^3/uL (4.0-11.0)
[2021-08-13 13:44] LABS: CALCIUM 7.7 mg/dL (8.5-10.1); CREATININE 0.7 mg/dL (0.6-1.0); GFR 83.2
[2021-08-13 13:47] LABS: HEMOGLOBIN 6.6 g/dL (12.0-15.5)
[2021-08-13 13:48] LABS: ALBUMIN 2.8 g/dL (3.4-5.0); ALBUMIN/GLOBULIN RATIO 0.7 (1.0-1.7); TOTAL BILIRUBIN 0.3 mg/dL (0.2-1.0); TOTAL PROTEIN 6.8 g/dL (6.4-8.2)
[2021-08-13 14:40] LABS: % BANDS 24 % (0-9); % LYMPHS 12 % (24-48); % MONOS 5 % (0-10); % SEGS 59 % (35-66); PLT ESTIMATE DECREASED (ADEQUATE)
[2021-08-13 14:41] LABS: ANISOCYTOSIS SLIGHT; POLYCHROMASIA PRESENT; TOXIC GRANULATION PRESENT
== END ==
LOC: ONCLAB 12:58
PROVIDERS: ATTEND Internal Medicine Hematology & Oncology
DX: C34.11 Malignant neoplasm of upper lobe, right bronchus or lung (principal); D64.81 Anemia due to antineoplastic chemotherapy
CPT/HCPCS: 80053; 82525; 85007; 85025

== ENCOUNTER → 2021-08-20 | Outpatient (CLI) | payer MEDICARE, OTHER ==
[2021-08-14 09:08] VITALS: BP 99/55
[2021-08-20 12:07] LABS: BASO % 0 % (0-3); EOS % 0 % (0-3); HEMOGLOBIN 7.9 g/dL (12.0-15.5); LYMPH # 1.2 x10^3/uL (1.0-4.8); LYMPH % 14 % (24-48); MEAN CORPUSCULAR HEMOGLOBIN 33 pg (25-35); MEAN CORPUSCULAR HGB CONC 33 g/dL (31-37); MEAN CORPUSCULAR VOLUME 99 fL (79-100); MONO # 0.8 x10^3/uL (0.0-1.1); MONO % 9 % (0-9); NEUT # 7.1 x10^3/uL (1.8-7.7); NEUT % 77 % (31-73); PLATELET COUNT 110 x10^3/uL (140-400); RED BLOOD COUNT 2.42 x10^6/uL (3.50-5.40); RED CELL DISTRIBUTION WIDTH 22.9 % (11.5-14.5); WHITE BLOOD COUNT 9.1 x10^3/uL (4.0-11.0)
[2021-08-20 12:22] LABS: ALBUMIN 2.9 g/dL (3.4-5.0); ALBUMIN/GLOBULIN RATIO 0.7 (1.0-1.7); CREATININE 0.7 mg/dL (0.6-1.0); GFR 83.2; MAGNESIUM 1.2 mg/dL (1.8-2.4); POTASSIUM 3.8 mmol/L (3.5-5.1); TOTAL BILIRUBIN 0.3 mg/dL (0.2-1.0); TOTAL PROTEIN 7.3 g/dL (6.4-8.2)
[2021-08-20 12:25] LABS: CALCIUM 7.3 mg/dL (8.5-10.1)
== END ==
LOC: ONCLAB 11:40
PROVIDERS: ATTEND Internal Medicine Hematology & Oncology
DX: C34.11 Malignant neoplasm of upper lobe, right bronchus or lung (principal)
CPT/HCPCS: 36415; 80053; 83735; 85025

== ENCOUNTER → 2021-08-20 | Outpatient (CLI) | payer MEDICARE, OTHER ==
[2021-08-14 09:08] VITALS: BP 99/55
[~2021-08-20] MED LIST changes: +GADOTERATE 7.5 MMOL/15ML VIAL. IVP ONE
--- NOTE | 2021-08-20 11:54 | RAD ---
EXAM: Brain MRI with and without contrast. HISTORY: Small cell lung cancer staging. TECHNIQUE: Multiplanar, multisequence magnetic resonance imaging of the brain was performed prior to and following the administration of intravenous contrast. COMPARISON: None. FINDINGS: There is no restricted diffusion to suggest acute or subacute infarction. There is no susce ptibility effect to suggest hemorrhage. There is no mass effect or midline shift. There is no hydroce phalus. There are nonspecific foci of signal change within the cerebral white matter and lela. The orbits are unremarkable. There is mild paranasal sinus because of thickening. There is a small am ount of fluid the mastoid air cells. There are normal flow voids within the cerebral vessels. There i s a tiny focus of enhancement along the medial aspect of the right caudate nucleus likely due an tera cent vessel. There is no suspicious enhancing lesion. There is no suspicious calvarial lesion. IMPRESSION: 1. No acute intracranial finding or evidence of intracranial metastatic disease. 2. Scattered foci of signal change within the cerebral white matter and lela, likely due to chronic s mall vessel disease. Electronically signed by: Ronna Mcpherson MD (08/20/2021 11:52 AM) [id number]
== END ==
LOC: MRI 11:00
PROVIDERS: ATTEND Internal Medicine Hematology & Oncology
DX: C34.11 Malignant neoplasm of upper lobe, right bronchus or lung (principal)
CPT/HCPCS: 70553; A9575

== ENCOUNTER → 2021-08-27 | Outpatient (CLI) | payer MEDICARE, OTHER ==
[2021-08-14 09:08] VITALS: BP 99/55
[~2021-08-27] MED LIST changes: -GADOTERATE 7.5 MMOL/15ML VIAL. IVP ONE
[2021-08-27 12:08] LABS: BASO % 0 % (0-3); EOS % 1 % (0-3); HEMOGLOBIN 8.4 g/dL (12.0-15.5); LYMPH # 1.4 x10^3/uL (1.0-4.8); LYMPH % 24 % (24-48); MEAN CORPUSCULAR HEMOGLOBIN 33 pg (25-35); MEAN CORPUSCULAR HGB CONC 32 g/dL (31-37); MEAN CORPUSCULAR VOLUME 101 fL (79-100); MONO # 0.8 x10^3/uL (0.0-1.1); MONO % 13 % (0-9); NEUT # 3.7 x10^3/uL (1.8-7.7); NEUT % 63 % (31-73); PLATELET COUNT 153 x10^3/uL (140-400); RED BLOOD COUNT 2.59 x10^6/uL (3.50-5.40); RED CELL DISTRIBUTION WIDTH 23.3 % (11.5-14.5); WHITE BLOOD COUNT 5.9 x10^3/uL (4.0-11.0)
[2021-08-27 12:36] LABS: CREATININE 0.7 mg/dL (0.6-1.0); GFR 83.2; POTASSIUM 4.2 mmol/L (3.5-5.1); TOTAL BILIRUBIN 0.4 mg/dL (0.2-1.0); TOTAL PROTEIN 7.8 g/dL (6.4-8.2)
[2021-08-27 12:52] LABS: ALBUMIN 2.8 g/dL (3.4-5.0); ALBUMIN/GLOBULIN RATIO 0.6 (1.0-1.7)
[2021-08-27 12:53] LABS: CALCIUM 7.6 mg/dL (8.5-10.1); MAGNESIUM 1.2 mg/dL (1.8-2.4)
[2021-08-27 13:06] LABS: ANISOCYTOSIS MOD; PLT ESTIMATE ADEQUATE (ADEQUATE)
== END ==
LOC: ONCLAB 11:48
PROVIDERS: ATTEND Internal Medicine Hematology & Oncology
DX: C76.3 Malignant neoplasm of pelvis (principal)
CPT/HCPCS: 36415; 80053; 83735; 85025

== ENCOUNTER → 2021-09-10 | Outpatient (CLI) | payer MEDICARE, OTHER ==
[2021-08-14 09:08] VITALS: BP 99/55
[~2021-09-10] MED LIST changes: +CONTRAST GIVEN. MC PRN; +IOHEXOL 240 MG/ML 50ML VIAL. PO ONE; +IOHEXOL 300 MG/ML 100ML VIAL. IV ONE
--- NOTE | 2021-09-10 15:32 | RAD ---
EXAM: Chest, abdomen and pelvis CT with intravenous contrast. HISTORY: Lung cancer. TECHNIQUE: Computed tomographic images of the chest, abdomen and pelvis were obtained following the a dministration of intravenous contrast. Multiplanar reformatting was performed. *One or more of the following individualized dose reduction techniques were utilized for this examina tion: 1. Automated exposure control. 2. Adjustment of the mA and/or kV according to patient size. 3. Use of iterative reconstruction technique. COMPARISON: 07/07/2021 and 05/01/2021. FINDINGS: Chest: There is a stable right superior paramediastinal mass measuring approximately 7.6 cm in maximum dimension and contiguous with right paratracheal, precarinal and hilar lymphadenopathy. T here is obstruction of the traversing right medial upper lobe bronchi. There are stents within the carias perior vena cava and brachiocephalic veins. Evaluation for stent patency is limited due to mixing of contrast. There is coronary artery calcification. There is a small pericardial effusion. There is a moderate to large right pleural effusion. There is a right lower lobe partial collapse. Th ere is groundglass opacity within the right upper lobe likely due to postobstructive atelectasis or i nfiltrate. There is stable nodular opacity within the anterior medial left upper lobe measuring 2.6 c m, possibly due to atelectasis or scarring. There is mild emphysema. There is stable 2 mm pleural-bas ed nodular opacities within the posterior and medial left lower lobe. There is stable medial left low er lobe scarring or atelectasis. There is a small sclerotic lesion within the right lateral aspect of T7. There are degenerative changes throughout the spine. There is thickening of the bilateral anteri or breast skin and increased density within the bilateral breasts. Abdomen and pelvis: There is hepatomegaly. No suspicious hepatic lesion is seen. The gallbladder, roberto creas and adrenal glands are unremarkable. There is a splenule adjacent to an upper normal spleen. Th e stomach is unremarkable. The kidneys are unremarkable. There is no appendicitis. There is no bowel obstruction. There is colonic diverticulosis. There is no convincing diverticulitis. The bladder is u nremarkable. The uterus is absent. There is aortic and aortic branch vessel atherosclerosis. There is a stable sclerotic metastasis within L5 and mixed lytic and sclerotic metastases within the iliac cas jojo, the former which are increased compared to the prior exam. There is also a small sclerotic lesio n within the left aspect of L4 which may be a bone island. There are chronic superior endplate depres sions with Schmorl's nodes along the left aspects of L3 on L4. There is mild left greater than right hip osteoarthritis. IMPRESSION: 1. Stable superior right superior paraspinal mass resulting in attenuation of the traversing bronchi and vessels. There are associated stents within the superior vena cava and brachiocephalic veins, the patency of which is difficult to assess on this exam due to timing of contrast administration. This lesion is contiguous with stable mediastinal and right hilar lymphadenopathy. 2. Increase in a moderate to large right pleural effusion and partial right lower lobe collapse. 3. Suspected postobstructive right upper lobe atelectasis or infiltrate. 4. Stable 2.6 cm nodular opacity within the anterior medial left upper lobe, possibly due to pleural parenchymal scarring. 5. Slight progression of mixed lytic and sclerotic osseous metastases. No acute pathologic fracture i s seen. 6. Hepatomegaly. 7. Emphysema. 8. Diverticulosis. 9. Stable breast skin thickening and increased parenchymal density within both breasts. This may be d ue to chest wall radiation or primary breast malignancy. Correlate with physical exam and mammography findings. Electronically signed by: Ronna Mcpherson MD (09/10/2021 3:29 PM) [id number]
== END ==
LOC: CT 10:07
PROVIDERS: ATTEND Internal Medicine Hematology & Oncology
DX: C79.51 Secondary malignant neoplasm of bone (principal); C34.11 Malignant neoplasm of upper lobe, right bronchus or lung; R91.8 Other nonspecific abnormal finding of lung field; K57.30 Diverticulosis of large intestine without perforation or abscess without bleeding; J43.9 Emphysema, unspecified; J90 Pleural effusion, not elsewhere classified; R16.0 Hepatomegaly, not elsewhere classified; R50.9 Fever, unspecified; I25.10 Atherosclerotic heart disease of native coronary artery without angina pectoris; I31.3 Pericardial effusion (noninflammatory); I70.0 Atherosclerosis of aorta; M16.11 Unilateral primary osteoarthritis, right hip; M51.46 Schmorl's nodes, lumbar region; M47.819 Spondylosis without myelopathy or radiculopathy, site unspecified; Z90.710 Acquired absence of both cervix and uterus; Z95.5 Presence of coronary angioplasty implant and graft
CPT/HCPCS: 71260; 74177; Q9966; Q9967

== ENCOUNTER → 2021-09-10 | Outpatient (CLI) | payer MEDICARE, OTHER ==
[2021-08-14 09:08] VITALS: BP 99/55
[~2021-09-10] MED LIST changes: -CONTRAST GIVEN. MC PRN; -IOHEXOL 240 MG/ML 50ML VIAL. PO ONE; -IOHEXOL 300 MG/ML 100ML VIAL. IV ONE
[2021-09-10 12:20] LABS: BASO % 1 % (0-3); EOS % 1 % (0-3); HEMATOCRIT 23.8 % (36.0-47.0); HEMOGLOBIN 7.8 g/dL (12.0-15.5); LYMPH # 1.2 x10^3/uL (1.0-4.8); LYMPH % 33 % (24-48); MEAN CORPUSCULAR HEMOGLOBIN 32 pg (25-35); MEAN CORPUSCULAR HGB CONC 33 g/dL (31-37); MEAN CORPUSCULAR VOLUME 98 fL (79-100); MONO # 0.6 x10^3/uL (0.0-1.1); MONO % 15 % (0-9); NEUT # 1.9 x10^3/uL (1.8-7.7); NEUT % 50 % (31-73); PLATELET COUNT 267 x10^3/uL (140-400); RED BLOOD COUNT 2.43 x10^6/uL (3.50-5.40); RED CELL DISTRIBUTION WIDTH 20.2 % (11.5-14.5); WHITE BLOOD COUNT 3.8 x10^3/uL (4.0-11.0)
[2021-09-10 12:33] LABS: CALCIUM 8.5 mg/dL (8.5-10.1); CREATININE 0.7 mg/dL (0.6-1.0); GFR 83.2; POTASSIUM 4.1 mmol/L (3.5-5.1)
[2021-09-10 12:39] LABS: ALBUMIN/GLOBULIN RATIO 0.6 (1.0-1.7); MAGNESIUM 1.2 mg/dL (1.8-2.4); TOTAL BILIRUBIN 0.3 mg/dL (0.2-1.0); TOTAL PROTEIN 8.2 g/dL (6.4-8.2)
== END ==
LOC: ONCLAB 11:58
PROVIDERS: ATTEND Internal Medicine Hematology & Oncology
DX: C34.11 Malignant neoplasm of upper lobe, right bronchus or lung (principal)
CPT/HCPCS: 36415; 80053; 83735; 85025

== ENCOUNTER 2021-10-01 08:03 | Outpatient (CLI) | payer MEDICARE, OTHER ==
[~2021-10-01] VITALS: Ht 160 cm; Wt 80.4 kg
[2021-10-01 08:24] VITALS: BP 112/80
[2021-10-01 08:37] LABS: PROTHROMBIN TIME PATIENT 15.3 SEC (11.7-14.0)
[2021-10-01 09:05] VITALS: BP 140/65
[2021-10-01 09:20] VITALS: BP 141/72
[2021-10-01 09:25] VITALS: BP 134/63
--- NOTE | 2021-10-01 09:44 | RAD ---
Right Thoracentesis 10/01/2021 9:00 AM Clinical History: Right pleural effusion. Technique: Relative benefits risks and alternatives were discussed with the patient and/or their rep resentative. Written informed consent was obtained. The patient was placed in seated position. A xiang eout procedure was performed. Sonographic assessment demonstrates a large pleural effusion. A site for skin entry was selected, and subsequently prepped and draped using sterile barrier technique. 1% lidocaine without epinepherine was administered for local anesthesia to the skin and subcutaenous tissues. A 5 Kazakh sheathed needle was passed into the pleural space. Clear yellow fluid was aspirated and t he catheter was connected to a vacuum. Approximately 1.4 liters of fluid were drained. The catheter w as removed and adequate hemostasis was obtained. A sterile dressing was applied. The patient tolerat ed the procedure well, without complications. Impression: Successful ultrasound guided thoracentesis with removal of1.4 liters of fluid. Electronically signed by: Alec Bennett MD (10/01/2021 9:41 AM) [id number]
[2021-10-01 09:50] VITALS: BP 113/61
[2021-10-01 10:05] VITALS: BP 122/58
--- NOTE | 2021-10-01 10:19 | NUR ---
Discharge Note: JOSE CRUZ ARCHIBALD Discharge instructions and discharge home medications reviewed with Patient and a copy given. All questions have been answered and understanding verbalized. The following instructions and handouts were given: thoracentesis Discontinued lines and drains: nothing to discontinue. Patient discharged to Home or Self Care withFamily Membervia Wheelchair
== END 2021-10-01 10:22 | disposition home or self-care (01) ==
LOC: INTRAD 08:03
PROVIDERS: ATTEND Internal Medicine Hematology & Oncology
DX: J90 Pleural effusion, not elsewhere classified (principal); I10 Essential (primary) hypertension; I48.91 Unspecified atrial fibrillation; J44.9 Chronic obstructive pulmonary disease, unspecified; I25.10 Atherosclerotic heart disease of native coronary artery without angina pectoris; E11.9 Type 2 diabetes mellitus without complications; M19.90 Unspecified osteoarthritis, unspecified site; Z90.710 Acquired absence of both cervix and uterus; Z98.890 Other specified postprocedural states; Z79.899 Other long term (current) drug therapy; Z87.891 Personal history of nicotine dependence; Z72.89 Other problems related to lifestyle; Z88.8 Allergy status to other drugs, medicaments and biological substances
CPT/HCPCS: 32555; 36415; 85610

== ENCOUNTER → 2021-10-01 | Outpatient (CLI) | payer MEDICARE, OTHER ==
[2021-10-01 10:05] VITALS: BP 122/58
[2021-10-01 11:01] LABS: BASO % 1 % (0-3); EOS # 0.1 x10^3/uL (0.0-0.7); EOS % 2 % (0-3); HEMATOCRIT 26.8 % (36.0-47.0); HEMOGLOBIN 8.4 g/dL (12.0-15.5); LYMPH # 1.2 x10^3/uL (1.0-4.8); LYMPH % 28 % (24-48); MEAN CORPUSCULAR HEMOGLOBIN 29 pg (25-35); MEAN CORPUSCULAR HGB CONC 31 g/dL (31-37); MEAN CORPUSCULAR VOLUME 93 fL (79-100); MONO # 0.5 x10^3/uL (0.0-1.1); MONO % 12 % (0-9); NEUT # 2.5 x10^3/uL (1.8-7.7); NEUT % 58 % (31-73); PLATELET COUNT 231 x10^3/uL (140-400); RED CELL DISTRIBUTION WIDTH 18.8 % (11.5-14.5); WHITE BLOOD COUNT 4.3 x10^3/uL (4.0-11.0)
[2021-10-01 11:16] LABS: CALCIUM 8.8 mg/dL (8.5-10.1); CREATININE 0.8 mg/dL (0.6-1.0); GFR 71.3; POTASSIUM 4.2 mmol/L (3.5-5.1)
[2021-10-01 11:29] LABS: ALBUMIN 2.7 g/dL (3.4-5.0); ALBUMIN/GLOBULIN RATIO 0.5 (1.0-1.7); TOTAL BILIRUBIN 0.2 mg/dL (0.2-1.0); TOTAL PROTEIN 8.7 g/dL (6.4-8.2)
== END ==
LOC: ONCLAB 10:41
PROVIDERS: ATTEND Internal Medicine Hematology & Oncology
DX: C34.11 Malignant neoplasm of upper lobe, right bronchus or lung (principal)
CPT/HCPCS: 36415; 80053; 83615; 85025

== ENCOUNTER → 2021-10-22 | Outpatient (CLI) | payer MEDICARE, OTHER ==
[2021-10-01 10:05] VITALS: BP 122/58
[2021-10-22 11:24] LABS: BASO % 0 % (0-3); EOS # 0.1 x10^3/uL (0.0-0.7); EOS % 1 % (0-3); HEMATOCRIT 23.1 % (36.0-47.0); HEMOGLOBIN 7.3 g/dL (12.0-15.5); LYMPH # 1.3 x10^3/uL (1.0-4.8); LYMPH % 29 % (24-48); MEAN CORPUSCULAR HEMOGLOBIN 28 pg (25-35); MEAN CORPUSCULAR HGB CONC 32 g/dL (31-37); MEAN CORPUSCULAR VOLUME 87 fL (79-100); MONO # 0.6 x10^3/uL (0.0-1.1); MONO % 13 % (0-9); NEUT # 2.5 x10^3/uL (1.8-7.7); NEUT % 57 % (31-73); PLATELET COUNT 226 x10^3/uL (140-400); RED BLOOD COUNT 2.65 x10^6/uL (3.50-5.40); RED CELL DISTRIBUTION WIDTH 18.6 % (11.5-14.5); WHITE BLOOD COUNT 4.4 x10^3/uL (4.0-11.0)
[2021-10-22 11:41] LABS: CALCIUM 8.6 mg/dL (8.5-10.1); CREATININE 0.7 mg/dL (0.6-1.0); POTASSIUM 4.4 mmol/L (3.5-5.1)
[2021-10-22 11:47] LABS: ALBUMIN 2.3 g/dL (3.4-5.0); ALBUMIN/GLOBULIN RATIO 0.4 (1.0-1.7); TOTAL BILIRUBIN 0.1 mg/dL (0.2-1.0); TOTAL PROTEIN 8.5 g/dL (6.4-8.2)
== END ==
LOC: ONCLAB 10:44
PROVIDERS: ATTEND Internal Medicine Hematology & Oncology
DX: C76.3 Malignant neoplasm of pelvis (principal); D64.81 Anemia due to antineoplastic chemotherapy
CPT/HCPCS: 36415; 80053; 82607; 82728; 82746; 83540; 83550; 83615; 83921; 85025

== ENCOUNTER → 2021-10-29 | Outpatient (CLI) | payer MEDICARE, OTHER ==
[2021-10-01 10:05] VITALS: BP 122/58
[2021-10-29 11:26] LABS: BASO % 1 % (0-3); EOS # 0.1 x10^3/uL (0.0-0.7); EOS % 1 % (0-3); HEMATOCRIT 24.9 % (36.0-47.0); HEMOGLOBIN 7.9 g/dL (12.0-15.5); LYMPH # 1.4 x10^3/uL (1.0-4.8); LYMPH % 27 % (24-48); MEAN CORPUSCULAR HEMOGLOBIN 27 pg (25-35); MEAN CORPUSCULAR HGB CONC 32 g/dL (31-37); MEAN CORPUSCULAR VOLUME 86 fL (79-100); MONO # 0.7 x10^3/uL (0.0-1.1); MONO % 13 % (0-9); NEUT % 58 % (31-73); PLATELET COUNT 259 x10^3/uL (140-400); RED CELL DISTRIBUTION WIDTH 18.5 % (11.5-14.5); WHITE BLOOD COUNT 5.2 x10^3/uL (4.0-11.0)
[2021-10-29 11:40] LABS: FECAL OB PT NEGATIVE (NEG)
[2021-10-29 11:40] LABS: FECAL OB PT NEGATIVE (NEG)
[2021-10-29 11:41] LABS: FECAL OB PT NEGATIVE (NEG)
[2021-10-29 11:53] LABS: CALCIUM 8.8 mg/dL (8.5-10.1); CREATININE 0.8 mg/dL (0.6-1.0); GFR 71.1; POTASSIUM 4.6 mmol/L (3.5-5.1)
[2021-10-29 11:59] LABS: ALBUMIN 2.5 g/dL (3.4-5.0); ALBUMIN/GLOBULIN RATIO 0.4 (1.0-1.7); TOTAL BILIRUBIN 0.2 mg/dL (0.2-1.0); TOTAL PROTEIN 9.2 g/dL (6.4-8.2)
== END ==
LOC: ONCLAB 10:58
PROVIDERS: ATTEND Internal Medicine Hematology & Oncology
DX: C34.11 Malignant neoplasm of upper lobe, right bronchus or lung (principal); D64.81 Anemia due to antineoplastic chemotherapy
CPT/HCPCS: 36415; 80053; 82274; 85025

== ENCOUNTER → 2021-11-12 | Outpatient (CLI) | payer MEDICARE, OTHER ==
[2021-11-12 11:45] LABS: BASO % 1 % (0-3); EOS # 0.1 x10^3/uL (0.0-0.7); EOS % 1 % (0-3); HEMATOCRIT 23.3 % (36.0-47.0); HEMOGLOBIN 7.5 g/dL (12.0-15.5); LYMPH # 1.1 x10^3/uL (1.0-4.8); LYMPH % 25 % (24-48); MEAN CORPUSCULAR HEMOGLOBIN 27 pg (25-35); MEAN CORPUSCULAR HGB CONC 32 g/dL (31-37); MEAN CORPUSCULAR VOLUME 83 fL (79-100); MONO # 0.5 x10^3/uL (0.0-1.1); MONO % 12 % (0-9); NEUT # 2.6 x10^3/uL (1.8-7.7); NEUT % 61 % (31-73); PLATELET COUNT 268 x10^3/uL (140-400); RED BLOOD COUNT 2.81 x10^6/uL (3.50-5.40); RED CELL DISTRIBUTION WIDTH 18.6 % (11.5-14.5); WHITE BLOOD COUNT 4.3 x10^3/uL (4.0-11.0)
[2021-11-12 11:53] LABS: CALCIUM 8.7 mg/dL (8.5-10.1); CREATININE 0.8 mg/dL (0.6-1.0); GFR 71.1; POTASSIUM 4.7 mmol/L (3.5-5.1)
[2021-11-12 12:00] LABS: ALBUMIN 2.5 g/dL (3.4-5.0); ALBUMIN/GLOBULIN RATIO 0.4 (1.0-1.7); TOTAL BILIRUBIN 0.3 mg/dL (0.2-1.0); TOTAL PROTEIN 8.6 g/dL (6.4-8.2)
== END ==
LOC: ONCLAB 11:06
PROVIDERS: ATTEND Physician Assistant
DX: C79.51 Secondary malignant neoplasm of bone (principal); C34.11 Malignant neoplasm of upper lobe, right bronchus or lung; E83.51 Hypocalcemia; I87.1 Compression of vein; E83.42 Hypomagnesemia
CPT/HCPCS: 80053; 83921; 84443; 85025

== ENCOUNTER → 2021-11-19 | Outpatient (CLI) | payer MEDICARE, OTHER ==
[~2021-11-19] MED LIST changes: +GABA300C18 PO; +HYDR-2761 PO
--- NOTE | 2021-11-19 17:19 | RAD ---
Chest PA and lateral: Reason for examination: Metastatic non-small cell lung cancer. Evaluate pleural effusion. Comparison is made to previous study dated 06/03/2021. Port-A-Cath is present on the left with the tip at the superior vena cava/right atrial junction. The heart size is normal. Mediastinum is unchanged. Lung abrams continue to show a mass in the right uppe r lobe medially. This shows interval decrease in size now measuring approximately 6.4 x 3 cm in crani ocaudal and transverse dimensions. There is also a faint nodular density laterally in the right upper lobe measuring approximately 1.6 cm in size. There has been a decrease in the right pleural effusion . Left lung field is clear. No acute bony abnormalities are seen. Impression: Decreased size of the mass in the medial right upper lobe now measuring approximately 6.4 x 3 cm in c raniocaudal and transverse dimensions. Faint 1.6 cm nodule laterally in the right upper lobe. Right pleural effusion but decreased since previous exam. Electronically signed by: Danelle Denis MD (11/19/2021 5:16 PM) [id number]
== END ==
LOC: RAD 12:16
PROVIDERS: ATTEND Physician Assistant
DX: C76.3 Malignant neoplasm of pelvis (principal); R91.8 Other nonspecific abnormal finding of lung field; J90 Pleural effusion, not elsewhere classified
CPT/HCPCS: 71046

== ENCOUNTER → 2021-11-19 | Outpatient (CLI) | payer MEDICARE, OTHER ==
[2021-11-19 13:59] LABS: BASO % 0 % (0-3); EOS # 0.1 x10^3/uL (0.0-0.7); EOS % 1 % (0-3); HEMOGLOBIN 7.4 g/dL (12.0-15.5); LYMPH # 1.7 x10^3/uL (1.0-4.8); LYMPH % 28 % (24-48); MEAN CORPUSCULAR HEMOGLOBIN 27 pg (25-35); MEAN CORPUSCULAR HGB CONC 32 g/dL (31-37); MEAN CORPUSCULAR VOLUME 83 fL (79-100); MONO # 0.6 x10^3/uL (0.0-1.1); MONO % 10 % (0-9); NEUT # 3.8 x10^3/uL (1.8-7.7); NEUT % 61 % (31-73); PLATELET COUNT 286 x10^3/uL (140-400); RED BLOOD COUNT 2.76 x10^6/uL (3.50-5.40); RED CELL DISTRIBUTION WIDTH 18.5 % (11.5-14.5); WHITE BLOOD COUNT 6.2 x10^3/uL (4.0-11.0)
[2021-11-19 14:16] LABS: CALCIUM 8.8 mg/dL (8.5-10.1); CREATININE 0.7 mg/dL (0.6-1.0); POTASSIUM 4.5 mmol/L (3.5-5.1)
[2021-11-19 14:23] LABS: ALBUMIN 2.5 g/dL (3.4-5.0); ALBUMIN/GLOBULIN RATIO 0.4 (1.0-1.7); TOTAL BILIRUBIN 0.3 mg/dL (0.2-1.0); TOTAL PROTEIN 8.7 g/dL (6.4-8.2)
== END ==
LOC: ONCLAB 13:16
PROVIDERS: ATTEND Physician Assistant
DX: C34.11 Malignant neoplasm of upper lobe, right bronchus or lung (principal)
CPT/HCPCS: 36415; 80053; 85025